=== PATIENT | female | born 1935 | race Caucasian/White ===

== ENCOUNTER 2017-09-16 12:34 | Day surgery (SDC) | payer MEDICARE, BC, SELFPAY ==
[2017-09-16] VITALS (8 sets, daily range): BP systolic 89–148; BP diastolic 49–71; PULSE 57–68; RESP 11–19; TEMP 36–36.4; O2SAT 93–99; BMI 25.1
--- NOTE | 2017-09-16 | PATH_ITS ---
[facility] Accession Number: [id number] . 01 Material submitted: . PART A: GASTRIC POLYP PART B: ESOPHAGEAL . 01 Clinical history: . B: HISTORY OF BARRETTS . 02 Diagnosis: A. Biopsy, Gastric Polyp: Fundic gland polyp, negative for atypia. Negative for evidence of Helicobacter on H/E stain. Negative for intestinal metaplasia. . B. Esophageal Biopsies: Small fragments of squamous mucosa and glandular mucosa, negative for specialized metaplasia of Felipe's-type esophagus. Focal areas of pancreatic acinar metaplasia. Negative for dysplasia and malignancy. Negative for squamous intraepithelial eosinophils. I/09/18/2017 . 02 Electronically signed: . Mike Pierson MD, Pathologist NPI- [id number] . 01 Gross description: . Part A: GASTRIC POLYP: Received in formalin is 1 fragment(s) of whitney, soft tissue measuring 0.2 x 0.1 x 0.1 cm submitted entirely in 1 cassette(s) Part B: ESOPHAGEAL: Received in formalin is 1 fragment(s) of whitney, soft tissue measuring 0.3 x 0.2 x 0.1 cm submitted entirely in 1 cassette(s) /TRC /TRC . 02 Pathologist provided ICD-10: K31.7 . 02 CPT . 127572, [id number] Performed at: 01 [facility] [address] [facility], [place], [place] [id number] MD Colton Goetz MD Phone: [phone] Performed at: 02 [facility] [place] [address] [place], [place] [id number] MD Tristen Eaton MD Phone: [phone]
[2017-09-16] MEDS: SODIUM CHLORIDE 0.9% 1,000 ML 42 ML IV (13:50)
--- NOTE | 2017-09-16 14:08 | SUR.OPER ---
to endo from opd via cart respirations unlabored iv patent positioned per self for procedure
--- NOTE | 2017-09-16 14:34 | SUR.OPER ---
tolerated procedure well
[2017-09-16] MEDS: fentaNYL 250 MCG/5 ML INJ 150 MCG IV (14:36)
[2017-09-16] MEDS: MIDAZOLAM 5 MG/5 ML VIAL 8 MG IV (14:37)
--- NOTE | 2017-09-16 14:37 | P.OP.ENDO_ITS ---
Operative Date/Time/Diagnoses Date of procedure: 09/16/17 Time of procedure: 14:33 Pre-op diagnosis: See indications and findings Post-op diagnosis: same Procedure & Clinicians Study performed: EGD and colonoscopy Same procedure as scheduled: Yes Indications: History of Felipe's esophagus and personal history of adenomatous colon polyps Surgeon: Marty Humphrey Procedure Notes Procedure in detail: After informed consent was obtained the patient was placed in the left lateral decubitus position. The video upper scope was placed into the oropharynx and with the patient. Swelled the esophagus. The esophagus stomach and duodenum were carefully examined. On withdrawal retroflexed view the GE junction was performed. The scope was removed. The patient tolerated the procedure well. Patient was then turned and the colonoscope was substituted. This was introduced in the rectum slowly advanced to the cecum. Preparation was excellent. On slow withdrawal mucosa was carefully examined. The scope was removed and the patient tolerated the procedure well. Blood loss none Complications none Sedation Fentanyl 150 mcg Versed 8 mg IV titration Total sedation time 25 min Findings EGD 1. Possibly 1 small half to 1 cm length tongue of Felipe's esophagus between 37 and 38 cm. It was not clearly above the upper level of the gastric fold. Two biopsies were taken of this area. 2. No hiatal hernia 3. Otherwise normal stomach 4. Normal duodenal bulb and sweep Colonoscopy 1. Rare scattered diverticulosis 2. Otherwise negative colonoscopy to cecum Given Annie stage I do not think she needs follow up for either her Felipe' s or adenomatous colon polyps in the future.
--- NOTE | 2017-09-16 14:51 | PM.HP.1 ---
History of Present Illness Date Patient Seen: 09/16/17 Time Patient Seen: 14:52 Chief complaint: [id number] Narrative: History of Felipe's esophagus and adenomatous colon polyps. No current GI symptoms. Patient History Medical History Barretts esophagus (Acute) GE reflux (Acute) Hypertension (Acute) Polymyalgia rheumatica (Acute) Family & Social History Social History: household members spouse Meds Home Medications Medication Instructions Recorded Confirmed Type ASPIRIN (#ASPIRIN) 325 mg PO QDAY #0 12/20/10 09/16/17 History loratadine [Claritin] 10 mg PO PRN #0 12/20/10 History amlodipine 2.5 mg PO DAILY 09/16/17 09/16/17 History lisinopril 20 mg PO BID 09/16/17 09/16/17 History omeprazole 20 mg PO DAILY 09/16/17 09/16/17 History Allergies Allergy/AdvReac Type Severity Reaction Status Date / Time adhesive tape [ADHESIVE TAPE] Allergy Severe Rash Verified 09/16/17 13:29 codeine [CODEINE] Allergy Severe respiratory Verified 09/16/17 13:29 failure diazepam [DIAZEPAM] Allergy Severe respiratory Verified 09/16/17 13:29 problems procaine [PROCAINE] Allergy Severe SEVERE Verified 09/16/17 13:29 FACIAL SWELLING Exam Vital Signs (past 8 hours): - 09/16/17 13:30 09/16/17 14:36 09/16/17 14:41 Temperature 97.6 F 96.8 F L Pulse Rate 63 65 65 Respiratory Rate 16 19 16 Blood Pressure 148/61 H 95/54 L 89/49 L Pulse Oximetry 98 93 93 Oxygen Delivery Method Room Air Narrative Exam Narrative: Oropharynx free of lesions Chest clear to auscultation percussion Cardiac exam reveals no S3 or murmur Assessment & Plan Plan: Assessment/Plan Narrative: History of Felipe's esophagus and adenomatous colon polyps need for follow-up colonoscopy and upper endoscopy.
--- NOTE | 2017-09-16 15:15 | SUR.PHASEII ---
PT TRANSFERED TO [facility] IN STABLE CONDITION, VSS. PT SITTING UP AND TALKING TO RN. PT BROUGHT TO BEDSIDE. REVIEWED DC INSTRUCTIONS WITH PT AND PT . NO FURTHER QUESTIONS OR CONCERNS VOICED. PT REQUESTING TO STAY A LITTLE LONGER. PT GIVEN COFFEE AND SIPPING ON THAT AT THIS TIME. BED IN LOWEST POSITION AND CALL LIGHT GIVEN TO PT. PT APPEARS COMFORTABLE AT THIS TIME. ABD SOFT AND +FLATUS.
== END 2017-09-16 15:31 | disposition home or self-care (01) ==
PROVIDERS: PCP Internal Medicine; Visit Provider Internal Medicine Gastroenterology
PROC: 0DJ08ZZ Inspection of Upper Intestinal Tract, Via Natural or Artificial Opening Endoscopic (ICD-10-PCS; CPT 43235; principal; 2017-09-16 13:30)
PROC: 0DJD8ZZ Inspection of Lower Intestinal Tract, Via Natural or Artificial Opening Endoscopic (ICD-10-PCS; CPT 45378; 2017-09-16 13:30)
DX: Z86.010 Personal history of colon polyps (principal); K22.70 Barrett's esophagus without dysplasia; K57.30 Diverticulosis of large intestine without perforation or abscess without bleeding; I10 Essential (primary) hypertension; K21.9 Gastro-esophageal reflux disease without esophagitis; M35.3 Polymyalgia rheumatica; K31.7 Polyp of stomach and duodenum
CPT/HCPCS: 43239; G0105; 88305; J2250; J3010

== ENCOUNTER → 2018-06-14 12:46 | Outpatient (CLI) | payer MEDICARE, BC, SELFPAY | PROVIDERS: PCP Internal Medicine; Visit Provider Internal Medicine | DX: Z78.0 Asymptomatic menopausal state (principal); M35.3 Polymyalgia rheumatica; Z90.722 Acquired absence of ovaries, bilateral; Z87.891 Personal history of nicotine dependence | CPT/HCPCS: 77080 ==

== ENCOUNTER → 2018-07-09 12:38 | Outpatient (CLI) | payer MEDICARE, BC, SELFPAY ==
--- NOTE | 2018-07-09 | DI.MRI.S_ITS ---
PROCEDURE: MR HAND RT WO/W CON INDICATIONS: PRIMARY OSTEOARTHRITIS OF HAND TECHNIQUE: Coronal and axial T1 spin echo and T2 fast spin echo with fat saturation. Post-contrast coronal and axial T1 spin echo with fat saturation images through the right hand and wrist. COMPARISON: [facility], CR, XR HAND 3+ VIEWS BILATERAL, 06/08/2018, 10:23. [facility], MR, MR HAND LT WO/W CON, 07/09/2018, 12:49. FINDINGS: Image quality: Degraded by motion artifact. Additionally, the distal ulna and radius are not entirely included on several pulse sequences. Bones and cartilage: Scattered degenerative spurring and sclerosis. No fracture line identified. No marrow signal changes to suggest erosions. Subchondral marrow signal change and possible enhancement measuring 5 mm in head of first metatarsal probably degenerative cyst, and would be unusual appearance for erosion. Synovium: No evidence of active synovitis Soft tissues: No joint effusion seen. There is minimal middle finger flexor tenosynovitis. IMPRESSION: Minimal middle finger flexor tenosynovitis. No definite marrow signal changes to suggest erosions. No evidence of active synovitis Dictated by: Kobe Wallace M.D. on 07/09/2018 at 14:52 Approved by: Kobe Wallace M.D. on 07/09/2018 at 15:00
--- NOTE | 2018-07-09 | DI.MRI.S_ITS ---
PROCEDURE: MR HAND LT WO/W CON INDICATIONS: PRIMARY OSTEOARTHRITIS OF HAND TECHNIQUE: Coronal and axial T1 spin echo and T2 fast spin echo with fat saturation. Post-contrast coronal and axial T1 spin echo with fat saturation images through the left hand and wrist. COMPARISON: [facility], MR, MR HAND RT WO/W CON, 07/09/2018, 12:49. FINDINGS: Image quality: Degraded by motion artifact Bones and cartilage: Scattered degenerative spurring. No fractures identified. No marrow signal changes to suggest erosions are seen. There is T2 hyperintense presumed degenerative cyst seen in the head of the first metacarpal image 12 series 3. There is probable T1 intrinsic hyperintensity rather than actual enhancement. Of note, the ulnar styloid and distal radius are not included in the exam [id number] on some of the pulse sequences, in particular the coronal postcontrast, T1 and T2 weighted pulse sequence. Synovium: No evidence of active synovitis. Soft tissues: Mild middle and ring finger flexor tenosynovitis. No pathologic joint effusion. IMPRESSION: Mild middle and ring finger tenosynovitis. No discrete erosions identified. No evidence of active synovitis. Dictated by: Kobe Wallace M.D. on 07/09/2018 at 14:38 Approved by: Kobe Wallace M.D. on 07/09/2018 at 14:49
== END ==
PROVIDERS: PCP Internal Medicine; Visit Provider Internal Medicine Rheumatology
DX: M19.041 Primary osteoarthritis, right hand (principal); M19.042 Primary osteoarthritis, left hand; M65.842 Other synovitis and tenosynovitis, left hand
CPT/HCPCS: 73220; A9579

== ENCOUNTER 2019-06-26 13:42 | Emergency (ER) | payer MEDICARE, BC, SELFPAY ==
[2019-06-26 14:32] VITALS: BP 186/77; PULSE 78; RESP 18; TEMP 36.2; O2SAT 98
[2019-06-26] MEDS: PANTOPRAZOLE 40 MG VIAL IV (14:43)
[2019-06-26] MEDS: ONDANSETRON 4 MG/2 ML INJ IV ×2 (14:43→17:15)
[2019-06-26] MEDS: SODIUM CHLORIDE 0.9% 1,000 ML 150 ML IV (14:43)
[2019-06-26 14:44] LABS: Add Manual Diff / Slide Review NO; Basophils Absolute Auto 100 /uL (0-100); Basophils Percent Auto 0.5 % (0-2); Eosinophils Absolute Auto 100 /uL (0-450); Eosinophils Percent Auto 0.7 % (2-4); Hematocrit 35.8 % (36-46); Hemoglobin 12.4 g/dL (12.0-16.0); Lymphocytes Absolute Auto 1400 /uL (1100-4500); Lymphocytes Percent Auto 12.9 % (25-40); Mean Corpuscular HGB Conc 34.7 % (30-36); Mean Corpuscular Hemoglobin 33.8 PG (26-34); Mean Corpuscular Volume 97.3 fL (80-100); Monocytes Absolute Auto 400 /uL (0-900); Monocytes Percent Auto 3.8 % (3-14); Neutrophils Absolute Auto 9000 /uL (1500-7000); Neutrophils Percent Auto 82.1 % (50-75); Platelet Count 234 X10^3/uL (150-400); Red Blood Cell Count 3.68 X10^6/uL (4.0-5.2); Red Cell Distribution Width 12.2 % (11.6-14.8)
[2019-06-26 14:49] LABS: Alanine Aminotransferase 15 IU/L (<35); Albumin 4.3 g/dL (3.5-5.0); Albumin Globulin Ratio 1.3 (1.0-2.8); Alkaline Phosphatase 42 U/L (38-126); Aspartate Aminotransferase 30 IU/L (14-36); BUN Creatinine Ratio 28.4 (6-22); Bilirubin Total 0.4 mg/dL (0.2-1.3); Blood Urea Nitrogen 25 mg/dL (7-17); Calcium 9.1 mg/dL (8.4-10.2); Carbon Dioxide 23 mmol/L (22-32); Chloride 102 mmol/L (98-107); Estimated Glomerular Filt Rate > 60.0 mL/min (>60); Globulin 3.3 g/dL (1.7-4.1); Glucose 96 mg/dL (80-110); HEMOLYSIS 27 (0-50); Lipase 88 U/L (23-300); Sodium 136 mmol/L (137-145); Total Protein 7.6 g/dL (6.3-8.2)
--- NOTE | 2019-06-26 15:03 | ED.ABDPAIN ---
HPI - Abdominal Pain <Greg KHAI Arita - Last Filed: 06/26/19 20:01> General Chief Complaint: Abdominal Pain Stated Complaint: Bad reaction to medication Time Seen by Provider: 06/26/19 14:26 Source: patient Mode of arrival: Wheelchair Limitations: no limitations History of Present Illness HPI narrative: This is a 83-year-old female, nonsmoker, who presents to ED with significant other with chief complain of nausea, vomiting, abdominal discomfort since this morning. Patient reports she is currently taking Flagyl and amoxicillin for dental disease and is waiting to have a root canal done tomorrow by Dr. Granados. Patient was unaware of possible interaction with Flagyl and alcohol and she had wine tasting last night. Patient reports intermittent pain that is located below rib cage and radiating to her back. Patient reports it feels just like when she had cholecystitis. Patient has been nauseated and difficulty tolerating fluids. Patient denies urinary symptoms. Patient reports weakness but denies fever, chills. Patient reports history of cholecystectomy, appendectomy, hysterectomy, bladder suspension and hypertension. Related Data Home Medications Medication Instructions Recorded Confirmed loratadine [Claritin] 10 mg PO PRN #0 12/20/10 06/27/19 amlodipine 5 mg PO DAILY 09/16/17 06/28/19 omeprazole 20 mg PO DAILY 09/16/17 06/27/19 acyclovir 800 mg PO DAILY 06/27/19 06/27/19 amoxicillin 500 mg PO BEDTIME 06/27/19 06/27/19 estradiol 1 mg PO DAILY 06/27/19 06/27/19 lisinopril-hydrochlorothiazide 1 tab PO DAILY 06/27/19 06/27/19 metronidazole 500 mg PO BID 06/27/19 06/27/19 rosuvastatin 10 mg PO BEDTIME 06/27/19 06/28/19 aspirin 81 mg PO DAILY 06/28/19 06/28/19 lutein-zeaxanthin 1 cap PO DAILY 06/28/19 06/28/19 ranitidine HCl 150 mg PO DAILY 06/28/19 06/28/19 Previous Rx's Medication Instructions Recorded ondansetron 4 mg PO Q6-8H PRN #10 tab 06/26/19 Allergies Allergy/AdvReac Type Severity Reaction Status Date / Time adhesive tape [ADHESIVE TAPE] Allergy Severe Rash Verified 06/27/19 09:27 codeine [CODEINE] Allergy Severe respiratory Verified 06/27/19 09:27 failure diazepam [DIAZEPAM] Allergy Severe respiratory Verified 06/27/19 09:27 problems procaine [PROCAINE] Allergy Severe SEVERE Verified 06/27/19 09:27 FACIAL SWELLING Review of Systems <KHAI Saini - Last Filed: 06/26/19 20:01> Review of Systems Narrative: General: Denies fever, chills, (+) fatigue, malaise, sweats. HEENT: Denies sinus pain, ear pain, sore throat, difficulty swallowing, dizziness. Respiratory: Denies dyspnea, cough, wheezing, hemoptysis, sputum. Cardiovascular: Denies chest pain, palpitations, orthopnea, edema. Gastrointestinal: See HPI : Denies dysuria, frequency, incontinence, hematuria, urinary retention. Musculoskeletal: Denies weakness, joint pain or bony pain. Skin: Denies rash, skin lesions, or other. Neurologic: Denies weakness, headache, numbness, change in speech, confusion, seizures, incoordination. Psychiatric: No concerning psychosocial issues. 12-point review of systems is negative except for those stated above. Patient History <KHAI Saini - Last Filed: 06/26/19 20:01> Medical History Barretts esophagus (Acute) GE reflux (Acute) Hypertension (Acute) Polymyalgia rheumatica (Acute) Surgical History H/O: hysterectomy (Acute) History of bladder suspension procedure (Acute) Hx of cholecystectomy (Acute) S/P appendectomy (Acute) Social History household members: spouse Smoking Status: Never smoker Smoking Status: Never smoker alcohol intake frequency: 0-2 drinks per day Substance Use Type: does not use Exam <KHAI Saiin - Last Filed: 06/26/19 20:01> Narrative Exam Narrative: GEN: Alert, oriented x 3, ill appearing and appears to be in discomfort. Well nourished. Head: Normal cephalic, atraumatic. No scalp or temporal tenderness, palpable mass or rash. EYES: Pupils are equal, round, and reactive to light and accommodation. Extraocular muscles are intact bilaterally. There is no subconjunctival hemorrhage, exudate and sclera non-icteric. ENT: Hearing grossly intact. Nose without bleeding, purulent discharge. Mucous membrane moist, no mucosal lesion. Throat without erythema, tonsillar hypertrophy or exudate. Uvula in midline, airway patent. Neck: Trachea in midline. No JVD, non-tender without lymphadenopathy. No masses or thyroid megaly. Supple, non-tender and no meningeal signs. CARDIAC: Normal regular rate and rhythm without murmurs, gallops, or rubs. No chest wall tenderness. No peripheral edema, cyanosis or pallor. Capillary refill is less than 2 seconds. RESPIRATORY: Lungs are clear to auscultate bilaterally. No cough, wheezes, rales, or rhonchi. No stridor, respiratory distress, increase work of breathing, or accessary muscle used. ABD: Abdomen soft and non-distended. Tender to palpate in epigastric region. No guarding or rebound tenderness to palpate. Bowel sounds are normal in all 4 quadrants. There is no palpable masses or organomegaly. EXT: Full painless ROM of all extremities with no loss of sensation, strength, effusion or edema. SKIN: Warm, dry, normal color for patient. No erythema, lesions or rash over visible areas. BACK: Nontender without deformity or crepitance. No flank tenderness. NEUROLOGICAL: Alert and oriented to place, time and person. Sensation and motor function intact bilaterally. No facial droops, dysphasia. PSYCHIATRIC: Good judgement and reason, without hallucinations, abnormal affect or abnormal behaviors during the examination. Initial Vital Signs Initial Vital Signs: Vital Signs Temperature 97.1 F L 06/26/19 14:32 Pulse Rate 78 06/26/19 14:32 Respiratory Rate 18 06/26/19 14:32 Blood Pressure 186/77 H 06/26/19 14:32 Pulse Oximetry 98 06/26/19 14:32 <Lamont Mckeon MD - Last Filed: 06/29/19 07:50> Initial Vital Signs Initial Vital Signs: Vital Signs Temperature 97.1 F L 06/26/19 14:32 Pulse Rate 78 06/26/19 14:32 Respiratory Rate 18 06/26/19 14:32 Blood Pressure 186/77 H 06/26/19 14:32 Pulse Oximetry 98 06/26/19 14:32 Scores <Greg BatresKHAI Beltre - Last Filed: 06/26/19 20:01> GCS [place] coma scale eye opening: Spontaneous Marisa coma scale verbal response: Orientated [place] coma scale motor response: Obey commands [place] coma scale total score: 15 Course <Greg KHAI Arita - Last Filed: 06/26/19 20:01> Orders Ordered: Discontinued Medications Sodium Chloride (Normal Saline 0.9%) 1,000 mls @ 150 mls/hr IV CONT VERONICA Last Infusion: 06/26/19 18:26 Dose: 0 mls/hr Documented by: Admin: 06/26/19 14:43 Dose: 150 mls/hr Documented by: OPAL Ketorolac Tromethamine (Toradol) 15 mg IV NOW ONE Stop: 06/26/19 16:03 Last Admin: 06/26/19 16:17 Dose: 15 mg Documented by: EJ Ondansetron HCl (Zofran) 4 mg IV NOW ONE Stop: 06/26/19 14:38 Last Admin: 06/26/19 14:43 Dose: 4 mg Documented by: OPAL Ondansetron HCl (Zofran) 4 mg IV NOW ONE Stop: 06/26/19 16:48 Last Admin: 06/26/19 17:15 Dose: 4 mg Documented by: EJ Ondansetron HCl (Zofran Odt Prepack) 1 bottle MISC SEEINSTR ONE Stop: 06/26/19 18:33 Last Admin: 06/26/19 18:41 Dose: 1 bottle Documented by: EJ Pantoprazole Sodium (Protonix) 40 mg IV NOW ONE Stop: 06/26/19 14:40 Last Admin: 06/26/19 14:43 Dose: 40 mg Documented by: OPAL Vital Signs Vital signs: Vital Signs - 8 hr 06/26/19 14:32 06/26/19 17:00 Temperature 97.1 F L Pulse Rate 78 77 Respiratory Rate 18 18 Blood Pressure [Left Arm] 186/77 H 145/97 H Pulse Oximetry 98 98 <Lamont Mckeon MD - Last Filed: 06/29/19 07:50> Orders Ordered: Discontinued Medications Sodium Chloride (Normal Saline 0.9%) 1,000 mls @ 150 mls/hr IV CONT VERONICA Last Infusion: 06/26/19 18:26 Dose: 0 mls/hr Documented by: Admin: 06/26/19 14:43 Dose: 150 mls/hr Documented by: OPAL Ketorolac Tromethamine (Toradol) 15 mg IV NOW ONE Stop: 06/26/19 16:03 Last Admin: 06/26/19 16:17 Dose: 15 mg Documented by: EJ Ondansetron HCl (Zofran) 4 mg IV NOW ONE Stop: 06/26/19 14:38 Last Admin: 06/26/19 14:43 Dose: 4 mg Documented by: OPAL Ondansetron HCl (Zofran) 4 mg IV NOW ONE Stop: 06/26/19 16:48 Last Admin: 06/26/19 17:15 Dose: 4 mg Documented by: EJ Ondansetron HCl (Zofran Odt Prepack) 1 bottle MISC SEEINSTR ONE Stop: 06/26/19 18:33 Last Admin: 06/26/19 18:41 Dose: 1 bottle Documented by: EJ Pantoprazole Sodium (Protonix) 40 mg IV NOW ONE Stop: 06/26/19 14:40 Last Admin: 06/26/19 14:43 Dose: 40 mg Documented by: OPAL Vital Signs Vital signs: Vital Signs - 8 hr 06/26/19 14:32 06/26/19 17:00 Temperature 97.1 F L Pulse Rate 78 77 Respiratory Rate 18 18 Blood Pressure [Left Arm] 186/77 H 145/97 H Pulse Oximetry 98 98 MDM - Abdominal Pain <Greg KHAI Arita - Last Filed: 06/26/19 20:01> Differential Diagnosis Differential diagnosis: Likely abdominal pain, pancreatitis, small bowel obstruction and other (Gastritis, adverse drug reaction,) Medical Records Attestation: I reviewed the patient's medical records. Lab Data Attestation: I reviewed the patient's lab results. Result diagrams: 06/26/19 14:30 06/26/19 14:30 Labs: Lab Results 06/26/19 06/26/19 Range/Units 14:30 14:30 WBC 11.0 (4.5-11.0) X10^3/uL RBC 3.68 L (4.0-5.2) X10^6/uL Hgb 12.4 (12.0-16.0) g/dL Hct 35.8 L (36-46) % MCV 97.3 (80-100) fL MCH 33.8 (26-34) PG MCHC 34.7 (30-36) % RDW 12.2 (11.6-14.8) % Plt Count 234 (150-400) X10^3/uL Neut % (Auto) 82.1 H (50-75) % Lymph % (Auto) 12.9 L (25-40) % [place] % (Auto) 3.8 (3-14) % Eos % (Auto) 0.7 L (2-4) % Baso % (Auto) 0.5 (0-2) % Neut # (Auto) 9000 H (9657-9158) /uL Lymph # (Auto) 1400 (9900-8446) /uL [place] # (Auto) 400 (0-900) /uL Eos # (Auto) 100 (0-450) /uL Baso # (Auto) 100 (0-100) /uL Sodium 136 L (137-145) mmol/L Potassium 4.0 (3.4-5.1) mmol/L Chloride 102 (98-107) mmol/L Carbon Dioxide 23 (22-32) mmol/L BUN 25 H (7-17) mg/dL Creatinine 0.88 (0.52-1.04) mg/dL Estimated GFR > 60.0 (>60) mL/min BUN/Creatinine Ratio 28.4 H (6-22) Glucose 96 (80-110) mg/dL Calcium 9.1 (8.4-10.2) mg/dL Total Bilirubin 0.4 (0.2-1.3) mg/dL AST 30 (14-36) IU/L ALT 15 (<35) IU/L Alkaline Phosphatase 42 (38-126) U/L Total Protein 7.6 (6.3-8.2) g/dL Albumin 4.3 (3.5-5.0) g/dL Globulin 3.3 (1.7-4.1) g/dL Albumin/Globulin Ratio 1.3 (1.0-2.8) Lipase 88 (23-300) U/L Point of care testing: Urine Dip Bedside Urine Glucose Negative Bedside Urine Bilirubin - Negative Bedside Urine Ketone +/- 5 Urine Specific [place] 1.015 Bedside Urine Occult Blood - Negative Bedside Urine pH 7.5 Bedside Urine Protein - Negative Bedside Urine Urobilinogen - Negative Bedside Urine Nitrite - Negative Bedside Urine Leukocytes - Negative Esterase Imaging Data XR-AAS: Radiologist's Impression: [address] [address] XRay Report Signed Patient: Annie Ryan [facility]#: [id number] : 8Acct:[id number] Age/Sex: 83 / FDate of Service: 06/26/19 Loc: ED Accession Number: [id number] Procedure: XR acute abdomen series Ordering Provider: Greg Arita PROCEDURE: XR ACUTE ABDOMEN SERIES INDICATIONS: abdominal pain/nausea, hx of multiple abd surgery, r/o SBO TECHNIQUE: One view chest and two views of the abdomen were acquired. COMPARISON: [facility], CT, ABDOMEN/PELVIS WITH CONTRAST, 11/26/2016, 12:04. FINDINGS: Surgical changes and devices: Cholecystectomy clips are seen. Chest: Lungs are clear. The cardiac contours are within normal limits. The aorta demonstrates calcification and tortuosity.No pleural effusions. No pneumoperitoneum. Abdomen: Bowel gas pattern is normal. No suspicious calcifications. Visualized solid organ contours appear normal. Bones: No suspicious bony lesions. S-shaped scoliotic curvature is seen. Age-appropriate bony degenerative changes are seen. IMPRESSION: A nonobstructive bowel gas pattern is seen. As clinically appropriate, please consider a repeat plain film study or a dedicated CT of the abdomen and pelvis, if the patient's symptoms persist or worsen. Dictated by: Royer Amaya M.D. on 06/26/2019 at 15:19 Approved by: Royer Amaya M.D. on 06/26/2019 at 15:21 US-Renal: Radiologist's Impression: MDM Narrative Medical decision making narrative: This is a 83-year-old female who presents to ED with abdominal pain, nausea and vomiting after she had taken wine while she is on Flagyl for dental problem. Patient was not aware of interaction with Flagyl and alcohol at that time. Patient's pain is in upper mid abdomen radiating to back since early this morning. Patient has history of appendectomy, cholecystectomy, hysterectomy, bladder suspension surgery. There is no leukocytosis but mildly elevated neutrophils. Chemistry tests were unremarkable but appears to be patient was mildly dehydrated with elevated BUN of 25 and BUN/creatinine ratio of 28.4. Patient was medicated with IV fluids and Zofran. Given patient has a history of multiple abdominal surgery and to rule out small-bowel obstruction, acute abdominal series was obtained and indicates non obstructive bowel gas pattern with normal lungs. When patient was reassessed, patient reports on improved nausea and right flank pain and had bile looking emesis. Ultrasound of renal test was obtained to rule out hydronephrosis or kidney stone which was negative. After patient received 2nd dose of Zofran and IV Toradol, patient reports her discomfort and nausea has much improved. Advised patient to restart Flagyl tomorrow and avoid taking alcohol when she is on Flagyl in addition of 48 hours after she completes Flagyl. Patient is scheduled to have dental procedure, root canal, tomorrow by Dr. Granados and advised to contact her dentist in the morning see how she feels and seek her recommendation. Return precautions were discussed with patient and patient discharged to home with prepack Zofran and advised to hydrate adequately. Patient verbalized understanding and agreement with the treatment plan. <Lamont Mckeon MD - Last Filed: 06/29/19 07:50> Lab Data Labs: Lab Results 06/26/19 06/26/19 Range/Units 14:30 14:30 WBC 11.0 (4.5-11.0) X10^3/uL RBC 3.68 L (4.0-5.2) X10^6/uL Hgb 12.4 (12.0-16.0) g/dL Hct 35.8 L (36-46) % MCV 97.3 (80-100) fL MCH 33.8 (26-34) PG MCHC 34.7 (30-36) % RDW 12.2 (11.6-14.8) % Plt Count 234 (150-400) X10^3/uL Neut % (Auto) 82.1 H (50-75) % Lymph % (Auto) 12.9 L (25-40) % [place] % (Auto) 3.8 (3-14) % Eos % (Auto) 0.7 L (2-4) % Baso % (Auto) 0.5 (0-2) % Neut # (Auto) 9000 H (7404-3845) /uL Lymph # (Auto) 1400 (7055-9235) /uL [place] # (Auto) 400 (0-900) /uL Eos # (Auto) 100 (0-450) /uL Baso # (Auto) 100 (0-100) /uL Sodium 136 L (137-145) mmol/L Potassium 4.0 (3.4-5.1) mmol/L Chloride 102 (98-107) mmol/L Carbon Dioxide 23 (22-32) mmol/L BUN 25 H (7-17) mg/dL Creatinine 0.88 (0.52-1.04) mg/dL Estimated GFR > 60.0 (>60) mL/min BUN/Creatinine Ratio 28.4 H (6-22) Glucose 96 (80-110) mg/dL Calcium 9.1 (8.4-10.2) mg/dL Total Bilirubin 0.4 (0.2-1.3) mg/dL AST 30 (14-36) IU/L ALT 15 (<35) IU/L Alkaline Phosphatase 42 (38-126) U/L Total Protein 7.6 (6.3-8.2) g/dL Albumin 4.3 (3.5-5.0) g/dL Globulin 3.3 (1.7-4.1) g/dL Albumin/Globulin Ratio 1.3 (1.0-2.8) Lipase 88 (23-300) U/L Point of care testing: Urine Dip Bedside Urine Glucose Negative Bedside Urine Bilirubin - Negative Bedside Urine Ketone +/- 5 Urine Specific [place] 1.015 Bedside Urine Occult Blood - Negative Bedside Urine pH 7.5 Bedside Urine Protein - Negative Bedside Urine Urobilinogen - Negative Bedside Urine Nitrite - Negative Bedside Urine Leukocytes - Negative Esterase Discharge Plan Departure Patient Disposition: Home Clinical Impression: Adverse drug reaction Qualifiers: Encounter type: initial encounter Qualified Code(s): T50.905A - Adverse effect of unspecified drugs, medicaments and biological substances, initial encounter Abdominal pain Qualifiers: Abdominal location: unspecified location Qualified Code(s): R10.9 - Unspecified abdominal pain Vomiting Qualifiers: Vomiting type: bilious vomiting Nausea presence: with nausea Qualified Code(s): R11.14 - Bilious vomiting Discharge Date/Time: 06/26/19 18:50 Instructions: DI for Abdominal Pain-Adult, DI for Vomiting -- Adult Activity Restrictions/Additional Instructions: You have been diagnosed with [adverse reaction to Flagyl with alcohol consumption. You were medicated with IV fluids, Zofran, Toradol and pantoprazole. Lab tests were unremarkable except mild dehydration.Does not show kidney stones, mass, hydronephrosis.]. What to do: *Take your medications as directed. Please take Zofran that has been provided to you as needed for nausea. Please hydrate adequately with small amount of fluids frequently. Zofran has been transmitted to [facility] if you need additional doses. *Follow up with your primary care provider in 2-3 days, call for an appointment. Please call your dentist tomorrow morning see how you feel for root canal procedure. Let them know you were seen in the ED and that we asked you to be seen in follow up. *Return to ED if you have any new, worsening, or concerning symptoms, such as [chest pain, breathing difficulty, unable to tolerate fluids, fever, worsening pain, or any acute concerns]. Prescriptions: New ondansetron 4 mg tablet,disintegrating 4 mg PO Q6-8H PRN (Reason: nausea and vomiting) Qty: 10 RF: 0 No Action loratadine [Claritin] 10 MG tablet 10 mg PO PRN Qty: 0 RF: 0 lisinopril-hydrochlorothiazide 20-12.5 mg Tablet 1 tab PO DAILY RF: 0 metronidazole 500 mg Tablet 500 mg PO BID RF: 0 amoxicillin 500 mg Tablet 500 mg PO BEDTIME RF: 0 acyclovir 800 mg Tablet 800 mg PO DAILY RF: 0 estradiol 1 mg Tablet 1 mg PO DAILY RF: 0 rosuvastatin 20 mg Tablet 10 mg PO BEDTIME RF: 0 aspirin 81 mg Tablet,Delayed Release (Dr/Ec) 81 mg PO DAILY RF: 0 ranitidine HCl 150 mg Capsule 150 mg PO DAILY RF: 0 lutein-zeaxanthin 25-5 mg Capsule 1 cap PO DAILY RF: 0 amlodipine 2.5 mg Tablet 5 mg PO DAILY RF: 0 omeprazole 20 mg Capsule,Delayed Release(Dr/Ec) 20 mg PO DAILY RF: 0 Referrals: Will Tadeo MD [Primary Care Provider] -
[2019-06-26] MEDS: KETOROLAC 60 MG/2 ML VIAL 15 MG IV (16:17)
[2019-06-26 17:00] VITALS: BP 145/97; PULSE 77; RESP 18; O2SAT 98
--- NOTE | 2019-06-26 17:20 | DI.US.S_ITS ---
PROCEDURE: US RENAL COMPLETE INDICATIONS: flank and abdominal pain, vomiting TECHNIQUE: Real-time scanning was performed of the kidneys and bladder, with image documentation. COMPARISON: [facility], CT, ABDOMEN/PELVIS WITH CONTRAST, 11/26/2016, 12:04. [facility], CR, XR ACUTE ABDOMEN SERIES, 06/26/2019, 15:42. [facility], US, RENAL COMPLETE, 06/18/2012, 13:53. FINDINGS: Kidneys: Kidneys are normal in size. Right kidney measures 10.6 cm long; left kidney measures 9.6 cm long. Right renal cortical thickness is 1.3 cm; left renal cortical thickness is 2.1 cm. Renal cortical echotexture is normal. No hydronephrosis or nephrolithiasis. No suspicious solid mass lesions. Bladder: The urinary bladder is not distended, which limits its evaluation. Miscellaneous: No free pelvic fluid. IMPRESSION: Normal-appearing kidneys, without hydronephrosis. Limited evaluation of the bladder. Dictated by: Royer Amaya M.D. on 06/26/2019 at 16:51 Approved by: Royer Amaya M.D. on 06/26/2019 at 16:53
[2019-06-26] MEDS: ONDANSETRON 4 MG ODT PREPACK 1 BOTTLE MISC (18:41)
== END 2019-06-26 18:50 | disposition home or self-care (01) ==
PROVIDERS: Emergency Provider Nurse Practitioner Family; PCP Internal Medicine
DX: R11.14 Bilious vomiting (principal); T50.905A Adverse effect of unspecified drugs, medicaments and biological substances, initial encounter; R10.9 Unspecified abdominal pain
CPT/HCPCS: 74022; 76770; 80053; 81003; 83690; 85025; 96361; 96374; 96375; 96376; 99284; C9113; J1885; J2405

== ENCOUNTER 2019-06-27 09:18 | Inpatient (IN) | payer MEDICARE, BC, SELFPAY ==
[2019-06-27] VITALS (25 sets, daily range): BP systolic 129–196; BP diastolic 56–100; PULSE 72–99; RESP 11–27; TEMP 36.4–37.2; O2SAT 94–100; BMI 24.8
--- NOTE | 2019-06-27 | PATH_ITS ---
[facility] Accession Number: [id number] . 01 Material submitted: . small bowel - SMALL BOWEL RESECTION . 01 Clinical history: . VOMITING/ABDOMINAL PAIN . 02 Diagnosis: Small Bowel, Resection: 1. Active enteritis with thickened wall, transmural congestion, and edema, consistent with early ischemic changes. 2. Serositis and adhesions are present. 3. Margins appear viable. 4. No evidence of neoplasm. . . [facility] 06/30/2019 1324 Local . 02 Electronically signed: . Luna Cuevas MD, Pathologist NPI- [id number] . 01 Gross description: . Received in formalin, labeled small bowel section, is an unoriented segment of small bowel (length-50.5 cm, resection margin #1 diameter-1.9 cm, resection margin #2 diameter-1.7 cm) with attached mesentery (up to 4.5 cm thick). The resection margins are received stapled. The entire segment is red-brown and congested. The mucosa has normal folds. No nodules, masses or lesions are identified. The resection margin is inked blue. Section code: (A1) resection margin #1, chemical sales representative longitudinal sections; (A2) resection margin #2, chemical sales representative longitudinal sections; (A3-A10) chemical sales representative serial sections submitted from resection margin #1 to #2. ([id number]) /MRV 06/29/2019 1407 Local . 02 Pathologist provided ICD-10: K55.9 . 02 CPT . 396276 Performed at: [address] [facility], [place], [place] [id number] MD Colton Goetz MD Phone: [phone] Performed at: 02 [facility] [address] [place] [id number] MD Luna Cuevas MD Phone: [phone]
[2019-06-27] MEDS: ONDANSETRON 4 MG/2 ML INJ IV ×2 (09:46→15:41)
[2019-06-27] MEDS: SODIUM CHLORIDE 0.9% 1,000 ML 1000 ML IV (09:46)
[2019-06-27] MEDS: LORazepam 2 MG/ML INJ 1 MG IV (09:48)
[2019-06-27 09:59] LABS: Add Manual Diff / Slide Review NO; Basophils Absolute Auto 100 /uL (0-100); Basophils Percent Auto 0.8 % (0-2); Eosinophils Absolute Auto 0 /uL (0-450); Eosinophils Percent Auto 0.1 % (2-4); Hematocrit 40.5 % (36-46); Hemoglobin 13.8 g/dL (12.0-16.0); Lymphocytes Absolute Auto 3800 /uL (1100-4500); Lymphocytes Percent Auto 27.4 % (25-40); Mean Corpuscular HGB Conc 34.1 % (30-36); Mean Corpuscular Hemoglobin 33.2 PG (26-34); Mean Corpuscular Volume 97.1 fL (80-100); Monocytes Absolute Auto 900 /uL (0-900); Monocytes Percent Auto 6.8 % (3-14); Neutrophils Absolute Auto 8900 /uL (1500-7000); Neutrophils Percent Auto 64.9 % (50-75); Platelet Count 270 X10^3/uL (150-400); Red Blood Cell Count 4.17 X10^6/uL (4.0-5.2); Red Cell Distribution Width 12.3 % (11.6-14.8); White Blood Cell Count 13.7 X10^3/uL (4.5-11.0)
[2019-06-27 10:01] LABS: INR 0.9 (0.9-1.3); Prothrombin Time 10.5 SECONDS (10.1-12.7)
[2019-06-27 10:04] LABS: PTT Partial Thromboplastin Tim 28 SECONDS (26.4-36.2)
[2019-06-27 10:07] LABS: Alanine Aminotransferase 17 IU/L (<35); Albumin 4.7 g/dL (3.5-5.0); Albumin Globulin Ratio 1.3 (1.0-2.8); Alkaline Phosphatase 47 U/L (38-126); Bilirubin Total 0.9 mg/dL (0.2-1.3); Blood Urea Nitrogen 23 mg/dL (7-17); Calcium 9.3 mg/dL (8.4-10.2); Carbon Dioxide 19 mmol/L (22-32); Chloride 103 mmol/L (98-107); Estimated Glomerular Filt Rate 45.3 mL/min (>60); Globulin 3.5 g/dL (1.7-4.1); Glucose 125 mg/dL (80-110); Lipase 140 U/L (23-300); Sodium 137 mmol/L (137-145); Total Protein 8.2 g/dL (6.3-8.2)
[2019-06-27 10:09] LABS: Aspartate Aminotransferase 39 IU/L (14-36); HEMOLYSIS 61 (0-50); Potassium 3.4 mmol/L (3.4-5.1)
--- NOTE | 2019-06-27 10:11 | PC.NURSE ---
pt states she has been seen multiple times for the same pain and n/v. pt dx with marijuana induced hyperemesis. stopped using marijuana on 06/20. felt pretty good yesterday about 0330 pain started, now severe.
[2019-06-27] MEDS: MORPHINE 4 MG/ML INJ (10:20)
--- NOTE | 2019-06-27 10:30 | ED.NAVMDI ---
HPI - Nausea/Vomiting/Diarrhea General Chief complaint: Nausea/Vomiting/Diarrhea Stated complaint: VOMITING/ABDOMINAL PAIN Time Seen by Provider: 06/27/19 09:22 Source: patient and family Mode of arrival: Wheelchair Limitations: no limitations History of Present Illness HPI Narrative: 83-year-old woman with a history of hypertension and a dental infection who currently is on Flagyl for the dental infection had a partial glass of wine 2 nights ago and presented yesterday with significant vomiting and abdominal pain. Workup yesterday included blood work that was unremarkable a acute abdomen series that was unremarkable with a nonobstructive bowel gas pattern seen. Renal ultrasound was also done with normal appearing kidneys and no hydronephrosis appreciated. She was treated with antiemetics and discharged home. She had a couple of hours of relief and then began having more abdominal pain and returned significant nausea. Vomiting most of the evening. Her last bowel movement was yesterday she notes she is still passing gas. When she presents today she is in severe distress with severe abdominal pain radiating up into the chest. She describes no blood or black coffee-grounds in her emesis and the bowel movement yesterday was soft brown without evidence of bleeding and no recent black stools Related Data Home Medications Medication Instructions Recorded Confirmed ASPIRIN (#ASPIRIN) 325 mg PO QDAY #0 12/20/10 09/16/17 loratadine [Claritin] 10 mg PO PRN #0 12/20/10 amlodipine 2.5 mg PO DAILY 09/16/17 09/16/17 lisinopril 20 mg PO BID 09/16/17 09/16/17 omeprazole 20 mg PO DAILY 09/16/17 09/16/17 Previous Rx's Medication Instructions Recorded ondansetron 4 mg PO Q6-8H PRN #10 tab 06/26/19 Allergies Allergy/AdvReac Type Severity Reaction Status Date / Time adhesive tape [ADHESIVE TAPE] Allergy Severe Rash Verified 06/27/19 09:27 codeine [CODEINE] Allergy Severe respiratory Verified 06/27/19 09:27 failure diazepam [DIAZEPAM] Allergy Severe respiratory Verified 06/27/19 09:27 problems procaine [PROCAINE] Allergy Severe SEVERE Verified 06/27/19 09:27 FACIAL SWELLING Review of Systems Review of Systems Narrative: Pertinent positive and negative findings as per HPI Chills over the last 24 hours Remainder of review of systems is otherwise unremarkable for Constitutional: Fevers,weakness ENT: No sore throat, neck pain, ear pain, dental infection for which she was taking Flagyl Respiratory: Cough, wheeze, dyspnea : Dysuria, hematuria, flank pain MS: Muscle weakness, numbness, joint swelling or warmth Skin: Rashes, nonhealing lesions Neuro: Syncope, dizziness, tingling Psych: Depression, anxiety, suicidal ideation Endocrine: Fatigue, heat or cold intolerance, very dry skin Heme: Easy bruising or bleeding Allergy: Seasonal rhinorrhea, itchy eyes Patient History Medical History Barretts esophagus (Acute) GE reflux (Acute) Hypertension (Acute) Polymyalgia rheumatica (Acute) Surgical History H/O: hysterectomy (Acute) History of bladder suspension procedure (Acute) Hx of cholecystectomy (Acute) S/P appendectomy (Acute) Social History household members: spouse Smoking Status: Never smoker Smoking Status: Never smoker alcohol intake frequency: 0-2 drinks per day Substance Use Type: does not use Exam Narrative Exam Narrative: General: Acute distress secondary to abdominal pain, nausea. Significantly flushed to distracted by pain to give a full history, supplements history HEENT: Moist mucous membranes, normal sclera with reactive pupils, Neck: No JVD, supple Respiratory: Lungs are clear to auscultation, no wheezing no rales no rhonchi. Full and symmetrical air movement Cardiac: Mild tachycardia, regular rhythm, no murmurs no bruits Abdomen: Exquisitely tender all 4 quadrants with rebound and guarding. Skin: Warm and dry, no rashes Neurologic: Grossly neurologically intact with no obvious asymmetries or abnormalities Extremities: No trauma, well perfused 1210 on read exam after fluids and pain medication she is much calmer, respiratory rate at 17 saturations on room air at 99% blood pressure has come down to 170/80. Belly remains significantly tender after 4 mg of morphine, no rebound but continues to have guarding particularly in the lower quadrants. Initial Vital Signs Initial Vital Signs: Vital Signs Temperature 98.8 F 06/27/19 09:23 Pulse Rate 99 H 06/27/19 09:23 Respiratory Rate 27 H 06/27/19 09:23 Blood Pressure 196/97 H 06/27/19 09:23 Pulse Oximetry 97 06/27/19 09:23 Course Orders Ordered: ED Orders 06/27/19 09:28 EKG-12 Lead Stat 06/27/19 09:30 Complete Blood Count AUTO DIFF Stat Comprehensive Metabolic Panel Stat Lipase Stat Partial Thromboplastin Time Stat Prothrombin Time INR Stat 06/27/19 10:34 CT chest abd pel w con Stat 06/27/19 12:05 Lactate (Lactic Acid) Stat 06/27/19 12:06 Complete Blood Count AUTO DIFF Stat Comprehensive Metabolic Panel Stat Sodium Chloride (Normal Saline 0.9%) 1,000 mls @ 150 mls/hr IV BOLUS ONE Stop: 06/27/19 17:43 Last Admin: 06/27/19 11:59 Dose: 150 mls/hr Documented by: MADHAVI Piperacillin/Tazobactam/Dextrose (Zosyn) 3.375 gm in 50 mls @ 100 mls/hr IV NOW ONE Stop: 06/27/19 13:07 Discontinued Medications Sodium Chloride (Normal Saline 0.9%) 1,000 mls @ 1,000 mls/hr IV BOLUS ONE Stop: 06/27/19 10:42 Last Infusion: 06/27/19 11:05 Dose: 0 mls/hr Documented by: Admin: 06/27/19 09:46 Dose: 1,000 mls/hr Documented by: OBI Lorazepam (Ativan) 1 mg IV NOW ONE Stop: 06/27/19 09:44 Last Admin: 06/27/19 09:48 Dose: 1 mg Documented by: OBI Ondansetron HCl (Zofran) 4 mg IV NOW ONE Stop: 06/27/19 09:29 Last Admin: 06/27/19 09:46 Dose: 4 mg Documented by: OBI Ondansetron HCl (Zofran) 4 mg IV NOW ONE Stop: 06/27/19 09:44 Last Admin: 06/27/19 10:54 Dose: Not Given Documented by: MADHAVI Vital Signs Vital signs: Vital Signs - 8 hr 06/27/19 09:23 06/27/19 10:00 06/27/19 10:30 Temperature 98.8 F Pulse Rate 99 H 86 72 Respiratory Rate 27 H 24 14 Blood Pressure [Left Arm] 196/97 H 189/100 H 187/89 H Pulse Oximetry 97 97 99 06/27/19 11:00 Temperature Pulse Rate 85 Respiratory Rate 17 Blood Pressure [Left Arm] 181/85 H Pulse Oximetry 100 MDM - Nausea/Vomiting/Diarrhea Medical Records Attestation: I reviewed the patient's medical records. Lab Data Attestation: I reviewed the patient's lab results. Result diagrams: 06/27/19 09:30 06/27/19 09:30 Labs: Lab Results 06/27/19 06/27/19 06/27/19 Range/Units 09:30 09:30 09:30 WBC 13.7 H (4.5-11.0) X10^3/uL RBC 4.17 (4.0-5.2) X10^6/uL Hgb 13.8 (12.0-16.0) g/dL Hct 40.5 (36-46) % MCV 97.1 (80-100) fL MCH 33.2 (26-34) PG MCHC 34.1 (30-36) % RDW 12.3 (11.6-14.8) % Plt Count 270 (150-400) X10^3/uL Neut % (Auto) 64.9 (50-75) % Lymph % (Auto) 27.4 (25-40) % [place] % (Auto) 6.8 (3-14) % Eos % (Auto) 0.1 L (2-4) % Baso % (Auto) 0.8 (0-2) % Neut # (Auto) 8900 H (7734-6541) /uL Lymph # (Auto) 3800 (8828-3729) /uL [place] # (Auto) 900 (0-900) /uL Eos # (Auto) 0 (0-450) /uL Baso # (Auto) 100 (0-100) /uL PT 10.5 (10.1-12.7) SECONDS INR 0.9 (0.9-1.3) APTT 28 (26.4-36.2) SECONDS Sodium 137 (137-145) mmol/L Potassium 3.4 (3.4-5.1) mmol/L Chloride 103 (98-107) mmol/L Carbon Dioxide 19 L (22-32) mmol/L BUN 23 H (7-17) mg/dL Creatinine 1.15 H (0.52-1.04) mg/dL Estimated GFR 45.3 L (>60) mL/min BUN/Creatinine Ratio 20.0 (6-22) Glucose 125 H (80-110) mg/dL Calcium 9.3 (8.4-10.2) mg/dL Total Bilirubin 0.9 (0.2-1.3) mg/dL AST 39 H (14-36) IU/L ALT 17 (<35) IU/L Alkaline Phosphatase 47 (38-126) U/L Total Protein 8.2 (6.3-8.2) g/dL Albumin 4.7 (3.5-5.0) g/dL Globulin 3.5 (1.7-4.1) g/dL Albumin/Globulin Ratio 1.3 (1.0-2.8) Lipase 140 D (23-300) U/L Imaging Data CT scan - abdomen/pelvis: Radiologist's Impression: IMPRESSION: 1. Segment of thickened, inflamed small bowel in the midline lower abdomen without significant dilatation, pneumatosis, or definite transition point. Findings may represent an acute infectious/inflammatory process although early developing obstruction or ischemic enteritis not completely excluded. There is associated ascites and reactive lymph nodes. Consider surgical consultation. 2. A 1.3 cm right upper lobe and a 1.3 cm right lower lobe groundglass nodule. No focal consolidation. These may represent inflammatory nodules although neoplastic process not excluded. Recommend followup CT in 3-6 months to document stability versus resolution. 3. Interval enlargement of now moderate sized hiatal hernia. No evidence for rupture or pneumomediastinum. 4. Status post cholecystectomy with stable appearance of dilated common bile duct and minimal intrahepatic biliary ductal prominence, favored to represent postcholecystectomy physiologic dilatation. Other chronic findings as above. Findings were discussed with Dr. Lujan at 1140 hrs. Dictated by: Shar Joshi M.D. 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 Yesterday it would presume to be an interaction between metronidazole and wine however pain and vomiting have persisted. CT scan suggests a thickened inflamed small bowel in the middle lower abdomen perhaps infectious inflammatory and the possibility of ischemic is also entertained, also noted associated reactive ascites and lymph nodes.. She is hemodynamically intact. White count is at 13.7. Lactic acid and blood cultures are currently pending. Care is reviewed with Dr. Evangelista. At this point without pneumoperitoneum and pain better controlled she is not an immediate surgical candidate. Will consult and continue to evaluate her clinical course over the course of the next 24 hours. Patient will be admitted to the hospitalist service for acute abdominal pain. 1240. Reviewed with hospitalist, Dr Yun. Will add a single dose of Zosyn and admit observation status Discharge Plan Departure Patient Disposition: Admitted as Observation Clinical Impression: Inflammation of small intestine, Abdominal pain, acute Referrals: Will Tadeo MD [Primary Care Provider] -
--- NOTE | 2019-06-27 10:34 | DI.CT.S_ITS ---
PROCEDURE: CT CHEST ABD PEL W CON INDICATIONS: severe pain chest and abd, severe retching. Borhave? Perf? TECHNIQUE: After the administration of intravenous contrast, 5 mm thick sections acquired from the lung apices to the symphysis. 5 mm coronal and sagittal reformats were performed, with additional 7 mm MIP reformats through the lungs. For radiation dose reduction, the following was used: automated exposure control, adjustment of mA and/or kV according to patient size. COMPARISON: [facility], CT, ABDOMEN/PELVIS WITH CONTRAST, 11/26/2016, 12:04. FINDINGS: Image quality: Excellent. CHEST: Lungs and pleura: There is a 1.2 x 1.3 cm groundglass nodule identified in the periphery of the posterior right upper lobe seen on image 101, series 3. There is a second ill-defined groundglass nodule measuring approximately 1.3 cm x 0.8 cm and the central right lower lobe seen on image 208, series 3. No septal thickening or nodularity. No other suspicious mass or nodules. No pleural effusions or pneumothorax. Central and peripheral airways appear patent and normal in caliber. Mediastinum: Heart size is normal. No pericardial effusion. No mediastinal or hilar adenopathy by size criteria. Thoracic aorta and central pulmonary arteries are normal in size. Esophagus is normal in caliber. There is a moderate-sized hiatal hernia which has increased in size. Chest wall: No axillary or supraclavicular adenopathy by size criteria. Thyroid gland is unremarkable. ABDOMEN: Solid organs: Liver is normal in size and enhancement. Gallbladder is surgically absent with persistent dilatation of the common bile duct likely related to post cholecystectomy physiologic dilatation. This has not significantly changed. Minimal prominence of the central intrahepatic biliary ducts is again noted. No pneumobilia. Pancreas enhances normally. Spleen is normal in size and enhancement. No adrenal nodules. Kidneys demonstrate normal size and enhancement, without hydronephrosis. Peritoneum and bowel: There is a segment of thickened, inflamed small bowel in the midline lower abdomen measuring up to 2.3 cm in diameter and more thickening measuring up to 7 mm in thickness. No pneumatosis. There is mild adjacent inflammatory stranding. Scattered ascites noted throughout the abdomen and pelvis. No organized fluid collections. No free air. Numerous fluid filled loops of small bowel are also noted. The colon is generally decompressed without wall thickening. No pericolonic inflammatory stranding. Nodes and vessels: No retroperitoneal or mesenteric adenopathy by size criteria. Scattered atherosclerotic calcifications of the abdominal aorta and iliac vessels without aneurysmal dilatation. There are atherosclerotic calcifications at the origins of the bilateral renal arteries, celiac trunk, and SMA. The visualized vessels distal to the origins appear widely patent without intraluminal filling defects. Miscellaneous: No ventral hernias. PELVIS: Genitourinary: Urinary bladder wall thickness is normal. Uterus is again not visualized and presumably surgically removed. Miscellaneous: No pelvic adenopathy. Small left fat containing inguinal hernia without acute inflammatory changes. Bones: No suspicious bony lesions. No acute vertebral body compression fractures. Multilevel spondylitic changes throughout the imaged spine. L5 pars defect with minimal grade 1 anterolisthesis of L5 on S1. This is stable. IMPRESSION: 1. Segment of thickened, inflamed small bowel in the midline lower abdomen without significant dilatation, pneumatosis, or definite transition point. Findings may represent an acute infectious/inflammatory process although early developing obstruction or ischemic enteritis not completely excluded. There is associated ascites and reactive lymph nodes. Consider surgical consultation. 2. A 1.3 cm right upper lobe and a 1.3 cm right lower lobe groundglass nodule. No focal consolidation. These may represent inflammatory nodules although neoplastic process not excluded. Recommend followup CT in 3-6 months to document stability versus resolution. 3. Interval enlargement of now moderate sized hiatal hernia. No evidence for rupture or pneumomediastinum. 4. Status post cholecystectomy with stable appearance of dilated common bile duct and minimal intrahepatic biliary ductal prominence, favored to represent postcholecystectomy physiologic dilatation. Other chronic findings as above. Findings were discussed with Dr. Lujan at 1140 hrs. Dictated by: Shar Joshi M.D. on 06/27/2019 at 11:03 Approved by: Shar Joshi M.D. on 06/27/2019 at 11:42
[2019-06-27] MEDS: SODIUM CHLORIDE 0.9% 1,000 ML 150 ML IV (11:59)
[2019-06-27] MEDS: PIPERACILLIN-TAZO 3.375 GM/50 ML FROZ.PIGGY IV (12:51)
[2019-06-27 12:53] LABS: Bacteria Urine None Seen; RBC Urine None Seen (0-5/HPF)
[2019-06-27 13:03] LABS: Culture Indicated Urine Cult Not Indicated; Squamous Epithelial Cell Urine 0-1 /HPF (0-5/HPF); WBC Urine 0-1/HPF (0-5/HPF)
[2019-06-27] MEDS: MORPHINE 4 MG/ML INJ 2 MG IV (13:29)
--- NOTE | 2019-06-27 14:43 | P.CONS_ITS ---
History of Present Illness Consult details Date Patient Seen: 06/27/19 Time Patient Seen: 14:43 Chief complaint: VOMITING/ABDOMINAL PAIN Reason for consult: abdominal pain Narrative: Annie is an 83-year-old female who presents the to the emergency room with worsening acute abdominal pain. She was seen in the emergency room the day prior for abdominal pain and was felt to have an adverse reaction to Flagyl when she combined it with alcohol. She had severe nausea and vomiting yesterday evening after leaving the emergency room and had a worsening bilateral lower abdominal pain. On presentation today blood pressure 200/90, pulse 80s, WBC 14, hematocrit 41 HCO3 19, Cr 1.2. CT abdomen pelvis demonstrates a segment small bowel in the lower abdomen that is inflamed with stranding. There is no evidence pneumoperitoneum or pneumatosis. No history of coronary artery disease, valvular disease, arrhythmia, peripheral vascular disease, diabetes, or, pulmonary insufficiency. They are a nonsmoker and not on anticoagulation. History of appendectomy, bladder suspension, hysterectomy. Meds Home Medications and Allergies Home Medications Medication Instructions Recorded Confirmed Type ASPIRIN (#ASPIRIN) 325 mg PO QDAY #0 12/20/10 09/16/17 History loratadine [Claritin] 10 mg PO PRN #0 12/20/10 History amlodipine 2.5 mg PO DAILY 09/16/17 09/16/17 History omeprazole 20 mg PO DAILY 09/16/17 09/16/17 History ondansetron 4 mg PO Q6-8H PRN #10 tab 06/26/19 Rx acyclovir 800 mg PO DAILY 06/27/19 06/27/19 History amoxicillin 500 mg PO BEDTIME 06/27/19 06/27/19 History estradiol 1 mg PO DAILY 06/27/19 06/27/19 History lisinopril-hydrochlorothiazide 1 tab PO DAILY 06/27/19 06/27/19 History metronidazole 500 mg PO BID 06/27/19 06/27/19 History rosuvastatin 20 mg PO BEDTIME 06/27/19 06/27/19 History Allergies Allergy/AdvReac Type Severity Reaction Status Date / Time adhesive tape [ADHESIVE TAPE] Allergy Severe Rash Verified 06/27/19 09:27 codeine [CODEINE] Allergy Severe respiratory Verified 06/27/19 09:27 failure diazepam [DIAZEPAM] Allergy Severe respiratory Verified 04/27/20 09:27 problems procaine [PROCAINE] Allergy Severe SEVERE Verified 06/27/19 09:27 FACIAL SWELLING Review of Systems Review of Systems Narrative: A 10 point review of systems is negative except as noted in the HPI Exam Vital Signs (past 8 hours): - 06/27/19 09:23 06/27/19 10:00 06/27/19 10:30 Temperature 98.8 F Pulse Rate 99 H 86 72 Respiratory Rate 27 H 24 14 Blood Pressure Blood Pressure [Left Arm] 196/97 H 189/100 H 187/89 H Pulse Oximetry 97 97 99 06/27/19 11:00 06/27/19 11:45 06/27/19 12:00 Temperature Pulse Rate 85 72 74 Respiratory Rate 17 19 23 Blood Pressure Blood Pressure [Left Arm] 181/85 H 179/84 H 171/84 H Pulse Oximetry 100 95 98 06/27/19 12:15 06/27/19 12:30 06/27/19 13:00 Temperature Pulse Rate 76 79 82 Respiratory Rate 15 15 19 Blood Pressure Blood Pressure [Left Arm] 183/87 H 170/78 H 181/84 H Pulse Oximetry 97 98 99 06/27/19 13:15 06/27/19 13:20 06/27/19 14:00 Temperature 99 F Pulse Rate 82 94 H 80 Respiratory Rate 12 16 16 Blood Pressure 146/70 H 181/73 H Blood Pressure [Left Arm] 168/74 H Pulse Oximetry 98 98 97 Oxygen Delivery Method Room Air Oxygen Flow Rate 0 Narrative Exam Narrative: General-no acute distress, well nourished HEENT-moist mucous membranes, no scleral icterus Neck-supple, no lymphadenopathy Chest- non labored respirations, clear to auscultation bilaterally Cardiac-regular rate no peripheral edema Abdomen-nondistended. Focal peritonitis lower midline. Extremities-warm, well perfused Neurological-alert and oriented, no focal deficits. Objective Labs Result Diagrams: 06/27/19 14:54 06/27/19 14:54 Labs: Laboratory Results - last 24 hr 06/27/19 06/27/19 06/27/19 09:30 09:30 09:30 WBC 13.7 H RBC 4.17 Hgb 13.8 Hct 40.5 MCV 97.1 MCH 33.2 MCHC 34.1 RDW 12.3 Plt Count 270 Neut % (Auto) 64.9 Lymph % (Auto) 27.4 [place] % (Auto) 6.8 Eos % (Auto) 0.1 L Baso % (Auto) 0.8 Neut # (Auto) 8900 H Lymph # (Auto) 3800 [place] # (Auto) 900 Eos # (Auto) 0 Baso # (Auto) 100 PT 10.5 INR 0.9 APTT 28 Sodium 137 Potassium 3.4 Chloride 103 Carbon Dioxide 19 L BUN 23 H Creatinine 1.15 H Estimated GFR 45.3 L BUN/Creatinine Ratio 20.0 Glucose 125 H Calcium 9.3 Total Bilirubin 0.9 AST 39 H ALT 17 Alkaline Phosphatase 47 Total Protein 8.2 Albumin 4.7 Globulin 3.5 Albumin/Globulin Ratio 1.3 Lipase 140 D Urine RBC Urine WBC Ur Squamous Epith Cells Urine Bacteria Ur Culture Indicated? 06/27/19 12:50 WBC RBC Hgb Hct MCV MCH MCHC RDW Plt Count Neut % (Auto) Lymph % (Auto) [place] % (Auto) Eos % (Auto) Baso % (Auto) Neut # (Auto) Lymph # (Auto) [place] # (Auto) Eos # (Auto) Baso # (Auto) PT INR APTT Sodium Potassium Chloride Carbon Dioxide BUN Creatinine Estimated GFR BUN/Creatinine Ratio Glucose Calcium Total Bilirubin AST ALT Alkaline Phosphatase Total Protein Albumin Globulin Albumin/Globulin Ratio Lipase Urine RBC None seen Urine WBC 0-1/hpf Ur Squamous Epith Cells 0-1 /hpf Urine Bacteria None seen Ur Culture Indicated? Cult not indicated Assessment & Plan Assessment & Plan narrative: 83-year-old female with acute onset of abdominal pain and focal peritonitis of her lower midline. I reviewed her laboratory studies which demonstrated white blood cell count 14 a mild DANTE. Her CT I have reviewed demonstrates segment of small bowel thickening with stranding and free fluid.. There is no pneumatosis or pneumoperitoneum. I repeated her laboratory studies white count continues to be 14 lactic acid 0.8. Pre examined her abdomen she continues to have focal peritonitis. Unclear etiology of her enteritis potentially ischemic vs infectious. I recommended that we proceed with diagnostic laparoscopy, possible exploratory laparotomy and bowel resection. We discussed the risks of the procedure including bleeding, infection, anastamotic leak, hernia formation, heart attack, stroke. Her questions have been answered and she is in agreement with this plan.
--- NOTE | 2019-06-27 14:51 | PC.NURSE ---
Patient arrived to 214 from ER at 1400, oriented to room and call light. Dr. Yun into see patient. Patient denies nausea at this time, abdomen remains tender to touch and puffy, patient sleepy but awakens easily and answers questions appropriately. Call light within reach, bed alarm on for safety. Continue with plan of care.
--- NOTE | 2019-06-27 14:54 | PM.HP.1 ---
History of Present Illness History of Present Illness Date Patient Seen: 06/27/19 Time Patient Seen: 14:54 Chief complaint: VOMITING/ABDOMINAL PAIN Narrative: Annie Ryan is an 83-year-old female with past medical history of hypertension, rheumatoid arthritis who presented to the emergency room with worsening abdominal pain. Recently had a dental infection is been taking Flagyl. She drink wine and shortly after that developed severe nausea and vomiting. She presented to the emergency room yesterday and was given antiemetic and discharged home after laboratory evaluation was unremarkable. Overnight she began to develop severe (9/10) worsening bilateral lower and then generalized diffuse abdominal pain, radiating into her back and came back into the emergency room. Her emesis was nonbloody nonbilious and she states that she had a bowel movement yesterday that was loose but there was no hematochezia or melena. In the emergency room, her initial blood pressure was 200/90, pulse in the 80s, but other vital signs were unremarkable. Initial laboratory evaluations showed a a WBC of 13.7, creatinine of 1.15 from a baseline of 0.9, AST of 39, but no other lab abnormalities. UA was unremarkable. CT abdomen and pelvis demonstrated a small segment of her small bowel in the lower abdomen that was inflamed with stranding. She does endorse prior intra-abdominal surgeries including appendectomy. Surgery was consulted who recommended admission to Medicine for further monitoring. Patient History Medical History Barretts esophagus (Acute) GE reflux (Acute) Hypertension (Acute) Polymyalgia rheumatica (Acute) Surgical History H/O: hysterectomy (Acute) History of bladder suspension procedure (Acute) Hx of cholecystectomy (Acute) S/P appendectomy (Acute) Family & Social History Social History: household members spouse Safety & Behavioral: Feels Safe in Current Yes Environment Been Physically Hurt or No Threatened By a Person Suicidal Ideation Description None Suicide Plan Description No Plan Tobacco & Substance use: Smoking Status Never smoker alcohol intake frequency 0-2 drinks per day Substance Use Type does not use Meds Home Medications and Allergies Home Medications Medication Instructions Recorded Confirmed Type ASPIRIN (#ASPIRIN) 325 mg PO QDAY #0 12/20/10 06/27/19 History loratadine [Claritin] 10 mg PO PRN #0 12/20/10 06/27/19 History amlodipine 2.5 mg PO DAILY 09/16/17 06/27/19 History omeprazole 20 mg PO DAILY 09/16/17 06/27/19 History ondansetron 4 mg PO Q6-8H PRN #10 tab 06/26/19 06/27/19 Rx acyclovir 800 mg PO DAILY 06/27/19 06/27/19 History amoxicillin 500 mg PO BEDTIME 06/27/19 06/27/19 History estradiol 1 mg PO DAILY 06/27/19 06/27/19 History lisinopril-hydrochlorothiazide 1 tab PO DAILY 06/27/19 06/27/19 History metronidazole 500 mg PO BID 06/27/19 06/27/19 History rosuvastatin 20 mg PO BEDTIME 06/27/19 06/27/19 History Allergies Allergy/AdvReac Type Severity Reaction Status Date / Time adhesive tape [ADHESIVE TAPE] Allergy Severe Rash Verified 06/27/19 09:27 codeine [CODEINE] Allergy Severe respiratory Verified 06/27/19 09:27 failure diazepam [DIAZEPAM] Allergy Severe respiratory Verified 06/27/19 09:27 problems procaine [PROCAINE] Allergy Severe SEVERE Verified 06/27/19 09:27 FACIAL SWELLING Review of Systems Review of Systems Narrative: All other systems reviewed with the patient and are negative unless otherwise stated. Exam Vital Signs (past 8 hours): - 06/27/19 09:23 06/27/19 10:00 06/27/19 10:30 Temperature 98.8 F Pulse Rate 99 H 86 72 Respiratory Rate 27 H 24 14 Blood Pressure Blood Pressure [Left Arm] 196/97 H 189/100 H 187/89 H Pulse Oximetry 97 97 99 06/27/19 11:00 06/27/19 11:45 06/27/19 12:00 Temperature Pulse Rate 85 72 74 Respiratory Rate 17 19 23 Blood Pressure Blood Pressure [Left Arm] 181/85 H 179/84 H 171/84 H Pulse Oximetry 100 95 98 06/27/19 12:15 06/27/19 12:30 06/27/19 13:00 Temperature Pulse Rate 76 79 82 Respiratory Rate 15 15 19 Blood Pressure Blood Pressure [Left Arm] 183/87 H 170/78 H 181/84 H Pulse Oximetry 97 98 99 06/27/19 13:15 06/27/19 13:20 06/27/19 14:00 Temperature 99 F Pulse Rate 82 94 H 80 Respiratory Rate 12 16 16 Blood Pressure 146/70 H 181/73 H Blood Pressure [Left Arm] 168/74 H Pulse Oximetry 98 98 97 Oxygen Delivery Method Room Air Oxygen Flow Rate 0 Narrative Exam Narrative: GENERAL APPEARANCE: Well developed, well nourished female, appears uncomfortable and mildly anxious. SKIN: Inspection of the skin reveals no rashes, ulcerations or petechiae. HEENT: Normocephalic atraumatic, extraocular muscles are intact, oropharynx is clear and mucous membranes are dry, neck is supple without adenopathy NECK: Supple and symmetric. There was no thyroid enlargement, and no tenderness, or masses were felt. CHEST: Normal AP diameter and normal contour without any kyphoscoliosis. LUNGS: Auscultation of the lungs revealed no wheezes, rhonchi, or rales. CARDIOVASCULAR: There was a regular rate and rhythm without any murmurs, gallops, rubs. Peripheral pulses were 2+ and symmetric. ABDOMEN: Soft, moderately tender worse in her bilateral lower quadrants but also her epigastrium. There is no rebound. She did not seem uncomfortable lifting her legs off the bed, but more so upon palpation. MUSCULOSKELETAL: There was no tenderness or effusions noted. Muscle strength and tone were normal. EXTREMITIES: No cyanosis, clubbing or edema. NEUROLOGIC: Alert and oriented x 3. Mildly anxious. Gait was normal. Strength is +5/5 in the Upper Extremities and Lower Extremities Bilaterally. Objective Labs Result Diagrams: 06/27/19 14:54 06/27/19 14:54 Labs: Laboratory Results - last 24 hr 06/27/19 06/27/19 06/27/19 09:30 09:30 09:30 WBC 13.7 H RBC 4.17 Hgb 13.8 Hct 40.5 MCV 97.1 MCH 33.2 MCHC 34.1 RDW 12.3 Plt Count 270 Neut % (Auto) 64.9 Lymph % (Auto) 27.4 [place] % (Auto) 6.8 Eos % (Auto) 0.1 L Baso % (Auto) 0.8 Neut # (Auto) 8900 H Lymph # (Auto) 3800 [place] # (Auto) 900 Eos # (Auto) 0 Baso # (Auto) 100 PT 10.5 INR 0.9 APTT 28 Sodium 137 Potassium 3.4 Chloride 103 Carbon Dioxide 19 L BUN 23 H Creatinine 1.15 H Estimated GFR 45.3 L BUN/Creatinine Ratio 20.0 Glucose 125 H Calcium 9.3 Total Bilirubin 0.9 AST 39 H ALT 17 Alkaline Phosphatase 47 Total Protein 8.2 Albumin 4.7 Globulin 3.5 Albumin/Globulin Ratio 1.3 Lipase 140 D Urine RBC Urine WBC Ur Squamous Epith Cells Urine Bacteria Ur Culture Indicated? 06/27/19 12:50 WBC RBC Hgb Hct MCV MCH MCHC RDW Plt Count Neut % (Auto) Lymph % (Auto) [place] % (Auto) Eos % (Auto) Baso % (Auto) Neut # (Auto) Lymph # (Auto) [place] # (Auto) Eos # (Auto) Baso # (Auto) PT INR APTT Sodium Potassium Chloride Carbon Dioxide BUN Creatinine Estimated GFR BUN/Creatinine Ratio Glucose Calcium Total Bilirubin AST ALT Alkaline Phosphatase Total Protein Albumin Globulin Albumin/Globulin Ratio Lipase Urine RBC None seen Urine WBC 0-1/hpf Ur Squamous Epith Cells 0-1 /hpf Urine Bacteria None seen Ur Culture Indicated? Cult not indicated Assessment & Plan Assessment & Plan narrative: Annie Ryan is an 83-year-old female with past medical history of hypertension, rheumatoid arthritis who presented to the emergency room with worsening abdominal pain. On CT imaging she was noted to have a short segment of small bowel colitis in her lower abdomen, etiology is unclear. Patient is admitted to Medicine with surgical consultation. 1. Small-bowel enteritis, acute, present on admission - CT on admission with a Segment of thickened, inflamed small bowel in the midline lower abdomen without significant dilatation, pneumatosis, or definite transition point. There is associated ascites and reactive lymph nodes. -findings may represent an infectious process, ischemia, or early obstruction -general surgery, Dr. Evangelista, is following and appreciate his management. -pain control with morphine 2 mg q.1 hour at this time, continue to readjust as necessary -patient was given Zosyn in the emergency room, and although her WBC is elevated at 14 she has been on Flagyl but I do not suspect this to be infectious given lack of diarrhea. Will continue to monitor after fluid rehydration. 2. Pulmonary nodule, incidental finding -recommend repeat CT imaging in 6 months to confirm stability and/or resolution 3. Hypertension, chronic -patient is hypertensive likely secondary to pain, continue pain control. -given patient's severity of presenting pain will hold home medications in the short term, resume as clinical status changes. Code: Full, patient has an Advance directive on file and is scanned into the chart. DVT: Will hold in case of possible operative interventions, SCDs only Dispo: Admitted under observation status this time, pending further evaluation of the cause of her colitis.
[2019-06-27 15:02] LABS: Add Manual Diff / Slide Review NO; Basophils Absolute Auto 0 /uL (0-100); Basophils Percent Auto 0.2 % (0-2); Eosinophils Absolute Auto 0 /uL (0-450); Eosinophils Percent Auto 0.1 % (2-4); Hematocrit 42.2 % (36-46); Hemoglobin 14.3 g/dL (12.0-16.0); Lymphocytes Absolute Auto 700 /uL (1100-4500); Lymphocytes Percent Auto 4.7 % (25-40); Mean Corpuscular HGB Conc 33.8 % (30-36); Mean Corpuscular Hemoglobin 33.1 PG (26-34); Mean Corpuscular Volume 97.9 fL (80-100); Monocytes Absolute Auto 300 /uL (0-900); Monocytes Percent Auto 2.2 % (3-14); Neutrophils Absolute Auto 13000 /uL (1500-7000); Neutrophils Percent Auto 92.8 % (50-75); Platelet Count 242 X10^3/uL (150-400); Red Blood Cell Count 4.31 X10^6/uL (4.0-5.2); Red Cell Distribution Width 12.5 % (11.6-14.8)
[2019-06-27 15:20] LABS: Lactate (Lactic Acid) 0.8 mmol/L (0.7-2.1)
[2019-06-27 15:21] LABS: BUN Creatinine Ratio 21.2 (6-22); Blood Urea Nitrogen 21 mg/dL (7-17); Carbon Dioxide 21 mmol/L (22-32); Chloride 106 mmol/L (98-107); Estimated Glomerular Filt Rate 53.8 mL/min (>60); Glucose 142 mg/dL (80-110); HEMOLYSIS < 15 (0-50); Potassium 3.3 mmol/L (3.4-5.1); Sodium 137 mmol/L (137-145)
[2019-06-27] MEDS: MORPHINE 2 MG/ML INJ IV (15:38)
[2019-06-27] MEDS: SODIUM CHLORIDE 0.9% 1,000 ML 125 ML IV (17:30)
[2019-06-27] MEDS: CEFAZOLIN 2 GM/100 ML FROZ.PIGGY IV (18:18)
--- NOTE | 2019-06-27 18:34 | PC.NURSE ---
Addendum entered by Nathalie Malloy R.N. 06/27/19 22:16: Abdominal dsg CDI, drain in place w/ dark drainage. Addendum entered by Nathalie Malloy R.N. 06/27/19 22:15: Pt returned from PACU , Resting quietly at this time. IVF infusing as per orders. Hamilton cath patent clear urine. Call light w/in neo, bed alrm on for pt safety. Continue w/plan of care. Original Note: Pt resting quietly, MD in to see. Lungs clear, SpO2 998% RA IVF infusing via pump as per orders w/o incidence. Denies discomfort at this time. Pt escorted to OR by OR staff @ 1800.
[2019-06-27] MEDS: BUPIVACAINE 0.25% (PF) VIAL 30 ML INJ (19:05)
--- NOTE | 2019-06-27 20:04 | PM.OP.1 ---
Operative Date/Time/Diagnoses Date of procedure: 06/27/19 Time of procedure: 20:04 Pre-op diagnosis: Ischemic enteritis Post-op diagnosis: other (Mesenteric ischemia) Procedure & Clinicians Procedure: Diagnostic laparoscopy Exploratory laparotomy Enterectomy Same procedure as scheduled: Yes Indications: This is a woman who presented with focal peritonitis CT scan demonstrating small-bowel thickening and intra abdominal fluid. She was brought her to the operating room to rule of intestinal necrosis. Surgeon: Panda Evangelista Click Yes if Unassisted: Yes Anesthesia Type: General Operative Notes Findings: inta abdominal adhesion just proximal to infarcted small bowel (distal ileum approximately 10 inches of length) Specimen(s): other (small bowel resection) Estimated Blood Loss (mL): 100 Procedure in detail: Patient was brought to the operating room and placed supine on the table. Bilateral lower extremity compression devices were applied. General anesthesia was induced and she was intubated with an endotracheal tube. She received Zosyn in the emergency room and received Ancef prior to skin incision. An infraumbilical incision was made the umbilical stalk was grasped elevated and the fascia sharply incised. The abdomen was entered atraumatically and a 12 mm balloon trocar was then placed in the abdomen and insufflation was established. The laparoscope was inserted into the abdomen. There was no evidence of injury upon entry. There was a segment of small bowel in the pelvis that was frankly necrotic. The laparoscopic instruments were passed off the field and I extended the existing incision in the lower midline fashion. Subcutaneous tissues were divided and the abdomen was entered atraumatically. There was a large amount of intra abdominal fluid that was suctioned. This fluid was turbid but not feculent. The small bowel was eviscerated from the abdomen. There were multiple intra-abdominal adhesions which were sharply lysed with [place]. There was omentum plastering the colon down to the pelvis which was divided using the LigaSure. Finally the entirety of the small bowel was eviscerated. There was a segment of necrotic small bowel of the distal ileum of approximately 10 in in length. Just proximal to this necrotic small bowel there was a band of scar tissue forming an internal hernia. This band was sharply incised releasing the small bowel content. The small bowel was run in its entirety from the ligament Treitz to the terminal ileum. The only segment of necrotic bowel was of the distal ileum. I chose a point proximal and distal to the necrosis of viable bowel. Window within the mesentery was made and the bowel was transected using the Endo GAIL stapler with blue load. The specimen was then resected using the LigaSure. The small ends of small bowel were placed to fashion a [id number] anastomosis. A crotch stitch was placed with 3 0 of silk. Then an enterotomy was made in each limb and the stapler was used to create a common channel 45 blue staple. I inspected the common channel and was patent and hemostatic. The common channel opening was then closed with a running 3 0 PDS. The anastomosis was tested for its patency and its integrity. I closed the mesenteric defect with running 3 0 Vicryl suture. The abdomen was then irrigated with 4 L of sterile saline and its with lavage was returned clean. There was some generalized oozing from her daily aspirin which ceased and hemostasis was achieved. A 19 [place] drain was then placed into the pelvis adjacent to the anastomosis. This was brought out through the right abdominal wall fashion with nylon suture. The abdomen was then closed the fascia was closed from above and below using 1. PDS. The subcutaneous tissues were a than reapproximated using Vicryl suture skin closed with amadou. Patient tolerated the procedure well she emerged from anesthesia was extubated and transferred to recovery room in stable condition. Complications: none Post-operative Condition: stable Disposition: Acute Care
[2019-06-27] MEDS: fentaNYL 100 MCG/2 ML INJ IV (20:14)
[2019-06-27] MEDS: HYDROMORPHONE 2 MG INJ IV (20:19)
--- NOTE | 2019-06-27 20:22 | SUR.PHASEI ---
Surgical dressing on abdomen observed to be c/d/i.
--- NOTE | 2019-06-27 20:59 | SUR.PHASEI ---
pt transferred to acute care floor in stable condition, vss. Bedside report given to MIKO Su upon arrival to room. Transferred care of pt to MIKO Su at that time. Pt alert and talking to nursing staff.
[2019-06-27] MEDS: ROSUVASTATIN 10 MG TABLET 20 MG PO (21:25)
[2019-06-28] VITALS (12 sets, daily range): BP systolic 120–156; BP diastolic 54–82; PULSE 78–93; RESP 16–18; TEMP 36.3–37.2; O2SAT 91–97
--- NOTE | 2019-06-28 00:33 | PC.NURSE ---
Addendum entered by Johanny Michelle R.N. 06/28/19 05:47: Complains of 2/10 incisional pain but no pain meds ordered so spoke with KHAI Mauricio, who ordered Tylenol which patient now medicated with. Oxygen sat is 96% this morning on 0.5L/min oxygen. Addendum entered by Johanny Michelle R.N. 06/28/19 01:00: Noted while asleep O2 sat dropped to 89% so oxygen restarted at 0.5L/min per MA Original Note: Patient is alert and oriented. Breath sounds CTA; on oxygen at shift change with sat of 100% so decreased to 1L/min with sat remaining good at 97% so now placed on RA and sat is 95%. Remains on continuous pulse oximetry. HRR with telemetry reading of SR. Denies nausea. BT present but denies flatus. Abdominal dressing intact with shadow drainage toward top left edge of dressing. Fili drain emptied of 80cc sanguineous fluid and now is intact and compressed. Able to move self in bed but has not yet been out of bed since return from surgery so gait is not assessed. Denies pain. Wearing bilateral calf SCD's. Fall risk score is moderate and bed alarm is activated.
[2019-06-28] MEDS: PANTOPRAZOLE 20 MG TABLET PO (05:26)
[2019-06-28] MEDS: ACETAMINOPHEN 325 MG TABLET 650 MG PO ×3 (05:45→13:22)
[2019-06-28 06:01] LABS: Add Manual Diff / Slide Review NO; Basophils Absolute Auto 0 /uL (0-100); Basophils Percent Auto 0.2 % (0-2); Eosinophils Absolute Auto 0 /uL (0-450); Hematocrit 36.3 % (36-46); Hemoglobin 12.2 g/dL (12.0-16.0); Lymphocytes Absolute Auto 600 /uL (1100-4500); Lymphocytes Percent Auto 4.1 % (25-40); Mean Corpuscular HGB Conc 33.6 % (30-36); Mean Corpuscular Volume 98.1 fL (80-100); Monocytes Absolute Auto 700 /uL (0-900); Monocytes Percent Auto 4.9 % (3-14); Neutrophils Absolute Auto 13000 /uL (1500-7000); Neutrophils Percent Auto 90.8 % (50-75); Platelet Count 223 X10^3/uL (150-400); Red Cell Distribution Width 12.9 % (11.6-14.8); White Blood Cell Count 14.3 X10^3/uL (4.5-11.0)
[2019-06-28 06:16] LABS: BUN Creatinine Ratio 20.2 (6-22); Blood Urea Nitrogen 20 mg/dL (7-17); Calcium 7.8 mg/dL (8.4-10.2); Carbon Dioxide 27 mmol/L (22-32); Chloride 104 mmol/L (98-107); Estimated Glomerular Filt Rate 53.8 mL/min (>60); Glucose 171 mg/dL (80-110); HEMOLYSIS < 15 (0-50); Magnesium 1.8 mg/dL (1.6-2.3); Potassium 3.8 mmol/L (3.4-5.1); Sodium 136 mmol/L (137-145)
[2019-06-28] MEDS: SODIUM CHLORIDE 0.9% FLUSH 10 ML IV (08:58)
[2019-06-28] MEDS: metroNIDAZOLE 500 MG TABLET PO (08:59)
[2019-06-28] MEDS: estradioL 1 MG TABLET PO (08:59)
[2019-06-28] MEDS: ACYCLOVIR 400 MG TABLET 800 MG PO (09:02)
[2019-06-28] MEDS: lisinopriL 20 MG TABLET PO (09:02)
[2019-06-28] MEDS: hydroCHLOROthiazide 12.5 MG CAPSULE PO (09:04)
--- NOTE | 2019-06-28 09:51 | PM.PNPO.1 ---
Subjective Subjective Date Patient Seen: 06/28/19 Time Patient Seen: 09:51 Interval history: No acute overnight events. Abdominal pain significantly improved from past 24 hours. No nausea vomiting. Tolerated a small amount of clear liquids. No flatus or bowel movement. Exam Vital Signs (past 8 hours): - 06/28/19 03:23 06/28/19 08:00 06/28/19 08:28 Temperature 97.3 F L 97.4 F L Pulse Rate 93 H 80 79 Respiratory Rate 16 18 Blood Pressure 149/71 H 145/82 H Pulse Oximetry 96 97 95 Oxygen Delivery Method Nasal Cannula Oxygen Flow Rate 0.5 Narrative Exam Narrative: General adult female alert oriented no acute distress Chest nonlabored respiration Abdomen soft appropriately tender to palpation dressings clean dry intact ROSIE drain with serosanguineous output. Objective Labs Result Diagrams: 06/28/19 05:35 06/28/19 05:35 Labs: Laboratory Results - last 24 hr 06/27/19 06/27/19 06/27/19 09:30 09:30 09:30 WBC 13.7 H RBC 4.17 Hgb 13.8 Hct 40.5 MCV 97.1 MCH 33.2 MCHC 34.1 RDW 12.3 Plt Count 270 Neut % (Auto) 64.9 Lymph % (Auto) 27.4 [place] % (Auto) 6.8 Eos % (Auto) 0.1 L Baso % (Auto) 0.8 Neut # (Auto) 8900 H Lymph # (Auto) 3800 [place] # (Auto) 900 Eos # (Auto) 0 Baso # (Auto) 100 PT 10.5 INR 0.9 APTT 28 Sodium 137 Potassium 3.4 Chloride 103 Carbon Dioxide 19 L BUN 23 H Creatinine 1.15 H Estimated GFR 45.3 L BUN/Creatinine Ratio 20.0 Glucose 125 H Lactate Calcium 9.3 Magnesium Total Bilirubin 0.9 AST 39 H ALT 17 Alkaline Phosphatase 47 Total Protein 8.2 Albumin 4.7 Globulin 3.5 Albumin/Globulin Ratio 1.3 Lipase 140 D Urine RBC Urine WBC Ur Squamous Epith Cells Urine Bacteria Ur Culture Indicated? 06/27/19 06/27/19 06/27/19 12:50 14:54 14:54 WBC 14.0 H RBC 4.31 Hgb 14.3 Hct 42.2 MCV 97.9 MCH 33.1 MCHC 33.8 RDW 12.5 Plt Count 242 Neut % (Auto) 92.8 H D Lymph % (Auto) 4.7 L D [place] % (Auto) 2.2 L Eos % (Auto) 0.1 L Baso % (Auto) 0.2 Neut # (Auto) 78688 H Lymph # (Auto) 700 L [place] # (Auto) 300 Eos # (Auto) 0 Baso # (Auto) 0 PT INR APTT Sodium Potassium Chloride Carbon Dioxide BUN Creatinine Estimated GFR BUN/Creatinine Ratio Glucose Lactate 0.8 Calcium Magnesium Total Bilirubin AST ALT Alkaline Phosphatase Total Protein Albumin Globulin Albumin/Globulin Ratio Lipase Urine RBC None seen Urine WBC 0-1/hpf Ur Squamous Epith Cells 0-1 /hpf Urine Bacteria None seen Ur Culture Indicated? Cult not indicated 06/27/19 06/28/19 06/28/19 14:54 05:35 05:35 WBC 14.3 H RBC 3.70 L Hgb 12.2 Hct 36.3 MCV 98.1 MCH 33.0 MCHC 33.6 RDW 12.9 Plt Count 223 Neut % (Auto) 90.8 H Lymph % (Auto) 4.1 L [place] % (Auto) 4.9 Eos % (Auto) 0.0 L Baso % (Auto) 0.2 Neut # (Auto) 23123 H Lymph # (Auto) 600 L [place] # (Auto) 700 Eos # (Auto) 0 Baso # (Auto) 0 PT INR APTT Sodium 137 136 L Potassium 3.3 L 3.8 Chloride 106 104 Carbon Dioxide 21 L 27 BUN 21 H 20 H Creatinine 0.99 0.99 Estimated GFR 53.8 L 53.8 L BUN/Creatinine Ratio 21.2 20.2 Glucose 142 H 171 H Lactate Calcium 8.0 L 7.8 L Magnesium 1.8 Total Bilirubin AST ALT Alkaline Phosphatase Total Protein Albumin Globulin Albumin/Globulin Ratio Lipase Urine RBC Urine WBC Ur Squamous Epith Cells Urine Bacteria Ur Culture Indicated? Assessment & Plan Post-op Postoperative Procedures: Procedures Operation Date: 06/27/19 18:00 Actual Procedures Side Surgeon p Laparoscopy, Diagnostic to open laparotomy with small bowel resection Panda Evangelista MD Postoperative plan narrative: 83-year-old female postoperative day 1 status post exploratory laparotomy and small-bowel resection of necrotic segment of small bowel. She is overall doing well. -continue clear liquid diet, okay for chewing gum, await return of bowel function prior to advancing diet -out of bed to chair ambulate, -physical therapy consult -remove Hamilton catheter -continue amoxicillin for dental abscess -will hold aspirin for today as well as chemical DVT prophylaxis, continue SCDs Time Spent With Patient Time with patient: Greater than 35 minutes
--- NOTE | 2019-06-28 10:05 | PM.PN.1 ---
Subjective Subjective Date Patient Seen: 06/28/19 Time Patient Seen: 10:08 Interval history: Annie Ryan is an 83-year-old female with past medical history of hypertension, rheumatoid arthritis who presented to the emergency room with worsening abdominal pain. She is seen for follow-up today. She is currently postop day 1 from a diagnostic laparoscopy converted to exploratory laparotomy with small-bowel resection for an area of necrotic bowel likely secondary to an internal hernia. She is feeling much better and tolerating clears this morning she has not had return of bowel function and denies passing any gas. She denies any nausea vomiting. She is appropriately painful over her surgical scars. Exam Vital Signs (past 8 hours): - 06/28/19 03:23 06/28/19 08:00 06/28/19 08:28 Temperature 97.3 F L 97.4 F L Pulse Rate 93 H 80 79 Respiratory Rate 16 18 Blood Pressure 149/71 H 145/82 H Pulse Oximetry 96 97 95 Oxygen Delivery Method Nasal Cannula Oxygen Flow Rate 0.5 Narrative Exam Narrative: GENERAL APPEARANCE: Well developed, well nourished female in no acute distress. SKIN: Inspection of the skin reveals no rashes, ulcerations or petechiae. HEENT: Normocephalic atraumatic, extraocular muscles are intact, oropharynx is clear and mucous membranes are dry, neck is supple without adenopathy NECK: Supple and symmetric. There was no thyroid enlargement, and no tenderness, or masses were felt. CHEST: Normal AP diameter and normal contour without any kyphoscoliosis. LUNGS: Auscultation of the lungs revealed no wheezes, rhonchi, or rales. CARDIOVASCULAR: There was a regular rate and rhythm without any murmurs, gallops, rubs. Peripheral pulses were 2+ and symmetric. ABDOMEN: Soft, appropriately tender, ROSIE drain with serosanguineous output, dressings clear dry and intact. MUSCULOSKELETAL: There was no tenderness or effusions noted. Muscle strength and tone were normal. EXTREMITIES: No cyanosis, clubbing or edema. NEUROLOGIC: Alert and oriented x 3. Calm and cooperative. Strength is +5/5 in the Upper Extremities and Lower Extremities Bilaterally. Objective Labs Result Diagrams: 06/28/19 05:35 06/28/19 05:35 Labs: Laboratory Results - last 24 hr 06/27/19 06/27/19 06/27/19 09:30 09:30 12:50 WBC RBC Hgb Hct MCV MCH MCHC RDW Plt Count Neut % (Auto) Lymph % (Auto) [place] % (Auto) Eos % (Auto) Baso % (Auto) Neut # (Auto) Lymph # (Auto) [place] # (Auto) Eos # (Auto) Baso # (Auto) PT 10.5 INR 0.9 APTT 28 Sodium 137 Potassium 3.4 Chloride 103 Carbon Dioxide 19 L BUN 23 H Creatinine 1.15 H Estimated GFR 45.3 L BUN/Creatinine Ratio 20.0 Glucose 125 H Lactate Calcium 9.3 Magnesium Total Bilirubin 0.9 AST 39 H ALT 17 Alkaline Phosphatase 47 Total Protein 8.2 Albumin 4.7 Globulin 3.5 Albumin/Globulin Ratio 1.3 Lipase 140 D Urine RBC None seen Urine WBC 0-1/hpf Ur Squamous Epith Cells 0-1 /hpf Urine Bacteria None seen Ur Culture Indicated? Cult not indicated 06/27/19 06/27/19 06/27/19 14:54 14:54 14:54 WBC 14.0 H RBC 4.31 Hgb 14.3 Hct 42.2 MCV 97.9 MCH 33.1 MCHC 33.8 RDW 12.5 Plt Count 242 Neut % (Auto) 92.8 H D Lymph % (Auto) 4.7 L D [place] % (Auto) 2.2 L Eos % (Auto) 0.1 L Baso % (Auto) 0.2 Neut # (Auto) 80681 H Lymph # (Auto) 700 L [place] # (Auto) 300 Eos # (Auto) 0 Baso # (Auto) 0 PT INR APTT Sodium 137 Potassium 3.3 L Chloride 106 Carbon Dioxide 21 L BUN 21 H Creatinine 0.99 Estimated GFR 53.8 L BUN/Creatinine Ratio 21.2 Glucose 142 H Lactate 0.8 Calcium 8.0 L Magnesium Total Bilirubin AST ALT Alkaline Phosphatase Total Protein Albumin Globulin Albumin/Globulin Ratio Lipase Urine RBC Urine WBC Ur Squamous Epith Cells Urine Bacteria Ur Culture Indicated? 06/28/19 06/28/19 05:35 05:35 WBC 14.3 H RBC 3.70 L Hgb 12.2 Hct 36.3 MCV 98.1 MCH 33.0 MCHC 33.6 RDW 12.9 Plt Count 223 Neut % (Auto) 90.8 H Lymph % (Auto) 4.1 L [place] % (Auto) 4.9 Eos % (Auto) 0.0 L Baso % (Auto) 0.2 Neut # (Auto) 58943 H Lymph # (Auto) 600 L [place] # (Auto) 700 Eos # (Auto) 0 Baso # (Auto) 0 PT INR APTT Sodium 136 L Potassium 3.8 Chloride 104 Carbon Dioxide 27 BUN 20 H Creatinine 0.99 Estimated GFR 53.8 L BUN/Creatinine Ratio 20.2 Glucose 171 H Lactate Calcium 7.8 L Magnesium 1.8 Total Bilirubin AST ALT Alkaline Phosphatase Total Protein Albumin Globulin Albumin/Globulin Ratio Lipase Urine RBC Urine WBC Ur Squamous Epith Cells Urine Bacteria Ur Culture Indicated? Assessment & Plan Assessment & Plan narrative: Annie Ryan is an 83-year-old female with past medical history of hypertension, rheumatoid arthritis who presented to the emergency room with worsening abdominal pain, she is now postoperative day 1. Status post small bowel resection after finding an area of necrotic bowel on exploration. She is doing well postoperatively, and patient has been transferred to surgical service today. 1. Small-bowel enteritis, acute, present on admission - CT on admission with a Segment of thickened, inflamed small bowel in the midline lower abdomen without significant dilatation, pneumatosis, or definite transition point. There is associated ascites and reactive lymph nodes. -findings may represent an infectious process, ischemia, or early obstruction -general surgery, Dr. Evangelista, performed small-bowel resection on June 26 for an area of necrotic bowel found during exploration. -pain control per surgery -patient was given Zosyn in the emergency room. No further antibiotics seem necessary at this time, agree with surgical management. 2. Pulmonary nodule, incidental finding -recommend repeat CT imaging in 6 months to confirm stability and/or resolution 3. Hypertension, chronic -patient has been resumed on her home medications this morning. Code: Full, patient has an Advance directive on file and is scanned into the chart. Patient was initially admitted to Medicine Service, after exploration she was found to have an area of necrotic bowel and underwent small bowel resection. She was transferred to the surgery service early this morning. Medicine will sign off at this time. Please do not hesitate to reconsult the hospitalist service with any additional questions.
--- NOTE | 2019-06-28 10:29 | PT.IIE ---
Surgery Performed Operation Date: 06/27/19 18:00 Actual Procedures p Laparoscopy, Diagnostic to open laparotomy with small bowel resection - Panda Evangelista MD Surgical History (Last Reviewed 06/27/19 @ 14:51 by Panda Evangelista MD) H/O: hysterectomy (Acute) History of bladder suspension procedure (Acute) Hx of cholecystectomy (Acute) S/P appendectomy (Acute) Medical History (Last Reviewed 06/27/19 @ 14:51 by Panda Evangelista MD) Barretts esophagus (Acute) GE reflux (Acute) Hypertension (Acute) Polymyalgia rheumatica (Acute) Physical Therapy Inpatient Evaluation/Re-Eval M1 PT/OT-IP Prior Functional Status Start: 06/28/19 12:12 Freq: NEEDED Status: Active Protocol: Document 06/28/19 10:29 AB (Rec: 06/28/19 12:23 AB [id number]) Medical Review Prior Functional Status Medical History Reviewed Yes Communication able to make needs known Mobility and Gait pt stated that she is independent with all mobilities and ambulation without AD; able to ambulate ~ 3 miles/day Social History Household Members spouse Living Arrangements House Number of Floors (Floors) One Floor Number of Stairs To Enter/Railing? 4 steps from front without rails 8 steps from the back with bilateral wide rails and can only hold on to one rail at a time Home Environment High Toilet,Walk in Shower Home Equipment Hand Held Shower M2 PT-IP Current Condition Start: 06/28/19 12:12 Freq: NEEDED Status: Active Protocol: Document 06/28/19 10:29 AB (Rec: 06/28/19 12:23 AB [id number]) Physical Therapy Current Condition Current Condition Evaluation Date 06/28/19 Treatment Diagnosis mesenteric ishemia s/p ex lap; enterectomy; difficulty in walking Onset Date 06/27/19 Precautions Abdominal Surgery Precautions Log Roll,Lifting Restrictions, Gait Belt above Incisional Area M3 PT-IP Subjective Start: 06/28/19 12:12 Freq: NEEDED Status: Active Protocol: Document 06/28/19 10:29 AB (Rec: 06/28/19 12:23 AB [id number]) Subjective Physical Therapy Visit Type Type Initial Evaluation Visit Start Time 10:29 Visit Stop Time 10:47 Total Visit Minutes 18 Number of DIGITAL COMMUNITY MANAGER Visits 0 Physical Therapy Visit Comments Patient Comments pt agreeable to do PT Therapy Pain Assessment Pain When Pain Assessed At Rest Pain Present Pain Present Pain Reported Location abd Intensity 4 Scale Used Numeric (1 - 10) Pain Management Techniques Modification of Treatment,Re- positioning,Timing of Activity with Medications M4 PT-IP Mobility and Gait Start: 06/28/19 12:12 Freq: NEEDED Status: Active Protocol: Document 06/28/19 10:29 AB (Rec: 06/28/19 12:23 AB [id number]) PT-Bed Mobility Assessment Rolling Type of Rolling Log Rolling Level of Assist Standby Assistance Supine to Sit Supine to Sit Standby Assistance Sit to Supine Sit to Supine Standby Assistance PT-Transfer Assessment Sit to and From Stand Sit to and from Stand Minimal Assistance,1 Person Assistance Equipment Transfer Assistive Device Gait Belt,Front Wheeled Walker Orthotic/Prosthetic Devices or Brace: No Transfers Transfer Destination Chair Transfer Technique ambulated using FWW Transfer Ability Level of Assist Minimal Assistance,1 Person Assistance,Use of Upper Extremities Comments Mobility Comments pt found sitting on the on EOB with NAC. PT took over. educated pt on abdominal precautions. completed log roll supine<>sit SBA and cues for techniques. completed sit to stand from EOB min A and cues and ambulated in room without AD ~ 20 ft. pt guarded and unsteady with ambulation and tends to hold on to counter/bed for support. instructed pt to sit on chair. educated pt on safety and use of AD at this time. assessed ambulation using FWW and pt completed ~ 20 ft requiring CGA and cues. pt agreed to sit up on chair. positioned on chair. call light and table placed within reach. Gait Assessment Gait Gait Assistance Required: Contact Guard Assist,Minimum Assistance,1 Person Assist Distance (Feet) 20 Able to Maintain Weight Bearing Status Yes During Gait Assistive Devices Assistive Device None,Gait Belt,Front Wheeled Walker Orthotic/Prosthetic Devices or Brace: No Gait Deviations General Gait Pattern Antalgic,Decreased Stride Length,Decreased Feet Clearance Factors Limiting Gait Function Factors Limiting Gait Function Decreased Activity Tolerance, Decreased Strength,Pain,Poor Balance Comments Gait Comments pls refer to mobility section for details. recommending use of FWW at this time and will progress towards without AD PT-Balance Assessment Sitting Balance and Reactions Static Sitting Balance Ability Good Dynamic Sitting Balance Ability Good Standing Balance and Reactions Static Standing Balance Ability Fair Dynamic Standing Balance Ability Fair Device Used FWW M5 PT-IP Objective Assessments Start: 06/28/19 12:12 Freq: NEEDED Status: Active Protocol: Document 06/28/19 10:29 AB (Rec: 06/28/19 12:23 AB [id number]) Orientation Orientation/Cognition Level of Alertness Alert Orientation Name,Age,Place,Situation Language Function Ability No Deficits Noted Safety Awareness Understands Safety Issues Memory Description No Deficits Noted Gross Range of Motion Lower Extremity ROM Assessment Within Functional Limits Strength Lower Extremity Strength Assessment Within Functional Limits Coordination Assessment Gross Coordination Gross Coordination WNL Sensation Assessment Sensation Gross Sensation WNL Muscle Tone Muscle Tone WNL Yes M6 PT-IP Treatment Start: 06/28/19 12:12 Freq: NEEDED Status: Active Protocol: Document 06/28/19 10:29 AB (Rec: 06/28/19 12:23 AB [id number]) Physical Therapy Treatment Education Education Provided Precautions,Safety M7 PT-IP Assessment and Plan Start: 06/28/19 12:12 Freq: NEEDED Status: Active Protocol: Document 06/28/19 10:29 AB (Rec: 06/28/19 12:23 AB [id number]) PT Summary Assessment and Plan Potential Rehabilitation Potential Good Status of Condition at Evaluation Stable Summary Impairments Pain,ROM,Strength,Balance,Bed Mobility,Transfers,Gait, Activity Tolerance Assessment Summary pt requiring min A at this time and presents with unsteady gait requiring use of FWW at this time. will continue PT to improve ambulation and independence. pt stated that her spouse will be able to assist her at home . will conduct caregiver training when appropriate and will complete stair climbing training prior to d/c. at this time, pt may require homehealth PT/outpt PT. Goals Bed Mobility Goal Independent Transfer Goal Independent,Front Wheeled Walker Gait Goal Independent,Front Wheel Walker Gait Distance 100 Other Goals improve ambulation 200 ft without AD SBA up/down 8 steps 1 rail SBA; 4 steps without rails SBA to CGA Days to Meet Goals 5 Frequency of Treatment Frequency Of Treatment Once a Day Treatment Plan Physical Therapy Treatment Plan Bed Mobility Training,Transfer Training,Gait Training, Therapeutic Exercise,Balance Retraining,Post Op Education, Discharge Planning,Hot or Cold Pack,Neuromuscular Re-ed, Coordination Retraining,Manual Therapy Recommendations To Nursing Amount of Assist Needed 1 Person Assist Discharge Recommendations PT Discharge Recommendations Home with Assistance,Home Health,Outpatient PT Equipment Needed for Home Before FWW if not safe without AD Discharge Transportation Needs at Discharge Private Vehicle
[2019-06-28] MEDS: SODIUM CHLORIDE 0.9% 1,000 ML 125 ML IV (11:18)
[2019-06-28] MEDS: ONDANSETRON 4 MG/2 ML INJ IV ×2 (12:05→17:50)
--- NOTE | 2019-06-28 12:21 | PC.NURSE ---
Addendum entered by Zaira Camp R.N. 06/28/19 13:50: Medicated with Tylenol for 3/10 abd pain. Discussed removal of ingram catheter. Patient says she has lots of urgency and would like to nap before the catheter comes out. Remains on room air (94-96%), cont pulse ox on while she's sleeping. Call light and belongings within reach, bed alarm on. Addendum entered by Zaira Camp R.N. 06/28/19 12:52: Reports nausea improved after IV Zofran, no further emesis as of this time. Assisted back to bed per patient request. Bag of belongings from home (clothing, cellphone, glass technician, personal care items, etc.) brought from home and given to patient. Call light in reach, cellphone charging and within reach, bed alarm on. Original Note: Shift summary: Alert and oriented X3. BT+ X4, hypoactive. Denies passing flatus yet. Belching occasionally Large abd dressing dry/intact with lemon-sized area of shadow drainage on L side (outlined at time of assessment). Fili drain patent to compression w/ serosanguinous drainage. Reports pain well-managed with Tylenol. Up to chair approx. 1030 and remains up at this time. 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 This lead technical writer spoke w/ Dr Capellan re: N/V- new order for Zofran received and was admin to patient as ordered. Remains on clear liquids, not much appetite. IVF started per new order, site in L hand WNL. Ingram patent to gravity w/ clear yellow urine- plan is to remove today as long as patient is agreeable. Lungs CTA, weaned down to room air (94%). Encouraged coughing/deep breathing w/ pillow provided for splinting. Able to make needs known and calls appropriately. Call light and belongings within reach.
--- NOTE | 2019-06-28 13:43 | CM.DANOTE ---
Discharge Planning/Care Management DCP: assessment: case received, discussed in Team Rounds and EMR reviewed. Met now with pt and introduced self and role. DCP template/below is completed with information provided by pt today. Pt is an 83 year old female who admitted yesterday afternoon to care of hospitalist team. Dr. Yun today confirms that the case has now been transferred over to [facility]. PT was taken to surgery yesterday afternoon by Dr. Evangelista for exploratory laparotomy and small bowel resection. She is today on clears. PT is seeing pt. Payer: Medicare and [employer] [facility] [place] Admission status: INPT: confirmed by UR MIKO Segura. P: at this point pt anticipates going home with her supportive spouse once she is stable for same. PT may recommend a FWW at d/c. DCP team will be following as pt recovers and her needs closer to d/c become clearer. CM Discharge Assessment Start: 06/28/19 13:41 Freq: Status: Active Protocol: Document 06/28/19 13:41 ITV (Rec: 06/28/19 13:43 ITV [id number]) Discharge Planning Assessment Advance Directives? Yes History Provided By Patient,Medical Record Prior Living Arrangements House Household Members spouse Independent with ADL's Yes Is patient alert and oriented? Yes Comment uses no assistive device at baseline. Typically walks 3 miles a day with friends. Less so since the [employer] Covid directive. (about a mile now) Review Status In Process
[2019-06-28] MEDS: VIT C/E/ZN/COPPR/LUTEIN/ZEAXAN CAPSULE 1 CAP PO (15:05)
[2019-06-28] MEDS: PROCHLORPERAZINE 10 MG/2 ML VIAL 5 MG IV (20:56)
--- NOTE | 2019-06-28 23:46 | PC.NURSE ---
Evening Shift Goals for shift included tolerance of clear liquid diet, ambulation, and subsequent discontinuation of Hamilton catheter. However, patient quickly developed nausea and vomiting, which proved to be intractable throughout shift. When symptoms did not respond to ondansetron, I called Dr. Capellan and obtained orders for Compazine, and NPO except ice. Patient also experienced little to no relief with Compazine. Whereas bowels sounds had been active upon my initial assessment, they became hypoactive. Lisa, nursing home director, called OR and requested that Dr. Capellan call when he is done in surgery. Hamilton was not dc'd, as patient experienced relentless n/v and was exhausted.
[2019-06-29] VITALS (7 sets, daily range): BP systolic 136–170; BP diastolic 54–87; PULSE 93–103; RESP 16–18; TEMP 36.6–37.2; O2SAT 93–96
[2019-06-29] MEDS: ONDANSETRON 4 MG/2 ML INJ IV ×2 (00:14→05:54)
[2019-06-29] MEDS: METOCLOPRAMIDE 10 MG/2 ML INJ 5 MG IV ×4 (01:06→21:19)
[2019-06-29] MEDS: PROCHLORPERAZINE 10 MG/2 ML VIAL IV (04:03)
[2019-06-29] MEDS: SODIUM CHLORIDE 0.9% 1,000 ML 125 ML IV ×2 (04:48→21:55)
[2019-06-29 06:16] LABS: Add Manual Diff / Slide Review NO; Basophils Absolute Auto 0 /uL (0-100); Basophils Percent Auto 0.2 % (0-2); Eosinophils Absolute Auto 0 /uL (0-450); Eosinophils Percent Auto 0.1 % (2-4); Hematocrit 34.7 % (36-46); Hemoglobin 12.3 g/dL (12.0-16.0); Lymphocytes Absolute Auto 1400 /uL (1100-4500); Lymphocytes Percent Auto 12.7 % (25-40); Mean Corpuscular HGB Conc 35.5 % (30-36); Mean Corpuscular Hemoglobin 34.7 PG (26-34); Mean Corpuscular Volume 97.7 fL (80-100); Monocytes Absolute Auto 800 /uL (0-900); Monocytes Percent Auto 7.1 % (3-14); Neutrophils Absolute Auto 8600 /uL (1500-7000); Neutrophils Percent Auto 79.9 % (50-75); Platelet Count 204 X10^3/uL (150-400); Red Blood Cell Count 3.55 X10^6/uL (4.0-5.2); Red Cell Distribution Width 12.6 % (11.6-14.8); White Blood Cell Count 10.7 X10^3/uL (4.5-11.0)
[2019-06-29 06:23] LABS: BUN Creatinine Ratio 16.7 (6-22); Blood Urea Nitrogen 14 mg/dL (7-17); Calcium 7.8 mg/dL (8.4-10.2); Carbon Dioxide 26 mmol/L (22-32); Chloride 105 mmol/L (98-107); Estimated Glomerular Filt Rate > 60.0 mL/min (>60); Glucose 109 mg/dL (80-110); HEMOLYSIS < 15 (0-50); Potassium 3.1 mmol/L (3.4-5.1); Sodium 137 mmol/L (137-145)
--- NOTE | 2019-06-29 09:19 | P.PN_ITS ---
Subjective Subjective Date Patient Seen: 06/29/19 Time Patient Seen: 09:20 Interval history: Emesis yesterday. Mostly and dry heaves and nausea this morning. No flatus no bowel movement. Feels bloated and distended Exam Vital Signs (past 8 hours): - 06/29/19 04:03 06/29/19 05:09 Temperature 98.0 F Pulse Rate 101 H 96 H Respiratory Rate 18 Blood Pressure 141/69 H 136/54 L Pulse Oximetry 93 Oxygen Delivery Method Nasal Cannula Oxygen Flow Rate 0 Narrative Exam Narrative: General adult female alert oriented no acute distress Abdomen soft appropriately tender to palpation dressings removed incision clean dry intact with amadou distended ROSIE drain serosanguineous output Objective Labs Result Diagrams: 06/29/19 06:00 06/29/19 06:00 Labs: Laboratory Results - last 24 hr 06/29/19 06/29/19 06:00 06:00 WBC 10.7 RBC 3.55 L Hgb 12.3 Hct 34.7 L MCV 97.7 MCH 34.7 H MCHC 35.5 RDW 12.6 Plt Count 204 Neut % (Auto) 79.9 H Lymph % (Auto) 12.7 L [place] % (Auto) 7.1 Eos % (Auto) 0.1 L Baso % (Auto) 0.2 Neut # (Auto) 8600 H Lymph # (Auto) 1400 [place] # (Auto) 800 Eos # (Auto) 0 Baso # (Auto) 0 Sodium 137 Potassium 3.1 L Chloride 105 Carbon Dioxide 26 BUN 14 Creatinine 0.84 Estimated GFR > 60.0 BUN/Creatinine Ratio 16.7 Glucose 109 Calcium 7.8 L Magnesium 2.0 Assessment & Plan Post-op Postoperative Procedures: Procedures Operation Date: 06/27/19 18:00 Actual Procedures Side Surgeon p Laparoscopy, Diagnostic to open laparotomy with small bowel resection Panda Evangelista MD Postoperative status narrative: 83-year-old female postoperative day 2 status post exploratory laparotomy and small-bowel resection for necrotic segment of small bowel. She has a postoperative ileus. #Postoperative ileus -Await return of bowel function -NPO IV fluids -replace electrolytes -out of bed to chair -ambulate #VTE prophylaxis -SCDs and pLovenox
--- NOTE | 2019-06-29 10:57 | PC.NURSE ---
New IV started to R.wrist. Patient nauseous and had about 50cc of green bile emesis, given reglan and has seemed to help patient. aide just gave patient a bed bath in the chair and patient perked up and she is now lying in bed and talkin to her in bed. Dr. Evangelista in to see patient and has ordered some ivf with potassium. He states that she most likely has an illeus. she will remain npo now.
--- NOTE | 2019-06-29 11:07 | DI.RAD.S_ITS ---
PROCEDURE: XR ABDOMEN 1V INDICATIONS: nausea TECHNIQUE: One view of the abdomen acquired. COMPARISON: [facility], CT, CT CHEST ABD PEL W CON, 06/27/2019, 10:30. FINDINGS: Surgical changes and devices: Vertical skin amadou involving the midline lower abdomen compatible with likely laparotomy. Soft tissue drain projects in the midline lower abdomen and pelvis. Bowel: Multiple air-filled loops of small bowel and colon are visualized with mild dilatation of small bowel in the left mid and lower abdomen. Soft tissues: No suspicious abdominal calcifications. Visualized solid organ contours appear normal in size. Bones: No suspicious bony lesions. IMPRESSION: Multiple air-filled loops of mildly dilated small bowel in the left mid and lower abdomen with a few air filled loops of colon likely related to postoperative ileus. Recommend continued surveillance and followup imaging as needed. Dictated by: Shar Joshi M.D. on 06/29/2019 at 13:08 Approved by: Shar Joshi M.D. on 06/29/2019 at 13:16
[2019-06-29] MEDS: POTASSIUM CHLORIDE 80 MEQ in SODIUM CHLORIDE 0.9% 1,000 ML 130 ML IV (11:21)
--- NOTE | 2019-06-29 15:19 | PT.IPTN ---
Current Diagnoses Unspecified intestinal obstruction, unspecified as to partial versus complete obstruction (06/28/19) Surgery Performed Operation Date: 06/27/19 18:00 Actual Procedures p Laparoscopy, Diagnostic to open laparotomy with small bowel resection - Panda Evangelista MD Physical Therapy Treatment Note M2 PT-IP Current Condition Start: 06/28/19 12:12 Freq: NEEDED Status: Active Protocol: Document 06/28/19 10:29 AB (Rec: 06/28/19 12:23 AB [id number]) Physical Therapy Current Condition Current Condition Evaluation Date 06/28/19 Treatment Diagnosis mesenteric ishemia s/p ex lap; enterectomy; difficulty in walking Onset Date 06/27/19 Precautions Abdominal Surgery Precautions Log Roll,Lifting Restrictions, Gait Belt above Incisional Area M3 PT-IP Subjective Start: 06/28/19 12:12 Freq: NEEDED Status: Active Protocol: Document 06/29/19 14:26 LJ (Rec: 06/29/19 15:19 LJ [email or web address]) Subjective Physical Therapy Visit Type Type Treatment Note Visit Start Time 14:26 Visit Stop Time 14:46 Total Visit Minutes 20 Number of SOFTWARE DEVELOPMENT MANAGER Visits 1 Physical Therapy Visit Comments Patient Comments pt agreeable to do PT M4 PT-IP Mobility and Gait Start: 06/28/19 12:12 Freq: NEEDED Status: Active Protocol: Document 06/29/19 14:26 LJ (Rec: 06/29/19 15:19 LJ [email or web address]) PT-Bed Mobility Assessment Rolling Type of Rolling Log Rolling Level of Assist Standby Assistance Supine to Sit Supine to Sit Standby Assistance PT-Transfer Assessment Sit to and From Stand Sit to and from Stand Standby Assistance,Use of Upper Extremities Equipment Transfer Assistive Device Gait Belt,Front Wheeled Walker Orthotic/Prosthetic Devices or Brace: No Transfers Transfer Destination Chair Transfer Technique ambulated using FWW Transfer Ability Level of Assist Standby Assistance,1 Person Assistance,Use of Upper Extremities Comments Mobility Comments Pt resting in bed upon arrival . SBA for all bed mobility. Sat up in bed without hesitation and swung he legs off the side of bed. Cues given to slow down. She transferred to standing with very little use of UEs. [facility] and lifted foot rest independently Gait Assessment Gait Gait Assistance Required: Standby Assistance,Contact Guard Assist Distance (Feet) 250 Able to Maintain Weight Bearing Status Yes During Gait Assistive Devices Assistive Device None,Gait Belt,Front Wheeled Walker Orthotic/Prosthetic Devices or Brace: No Gait Deviations General Gait Pattern Decreased Stride Length, Decreased Feet Clearance Factors Limiting Gait Function Factors Limiting Gait Function Decreased Activity Tolerance, Decreased Strength,Pain,Poor Balance Comments Gait Comments Pt ambulated in hallway with FWW to stairs CGA to SBA with little reliance on FWW. Returned to room and ambulated in room without AD. Pt demonstrated less stability and confidence without walker but had no LOB. Stair Climbing Assessment Evaluation Level of Assist On Stairs Standby Assistance Devices Stair Climbing Assistive Devices Right Railing Technique/Endurance Stair Climbing Direction Ascend and Descend Stair Climbing Technique Step Over Step Number of Steps Climbed 3 Stair Climbing Set # Repetitions (reps) 2 M5 PT-IP Objective Assessments Start: 06/28/19 12:12 Freq: NEEDED Status: Active Protocol: Document 06/28/19 10:29 AB (Rec: 06/28/19 12:23 AB [id number]) Orientation Orientation/Cognition Level of Alertness Alert Orientation Name,Age,Place,Situation Language Function Ability No Deficits Noted Safety Awareness Understands Safety Issues Memory Description No Deficits Noted Gross Range of Motion Lower Extremity ROM Assessment Within Functional Limits Strength Lower Extremity Strength Assessment Within Functional Limits Coordination Assessment Gross Coordination Gross Coordination WNL Sensation Assessment Sensation Gross Sensation WNL Muscle Tone Muscle Tone WNL Yes M6 PT-IP Treatment Start: 06/28/19 12:12 Freq: NEEDED Status: Active Protocol: Document 06/29/19 14:26 LJ (Rec: 06/29/19 15:19 LJ [email or web address]) Physical Therapy Treatment Education Education Provided Precautions,Safety M7 PT-IP Assessment and Plan Start: 06/28/19 12:12 Freq: NEEDED Status: Active Protocol: Document 06/29/19 14:26 LJ (Rec: 06/29/19 15:19 LJ [email or web address]) PT Summary Assessment and Plan Potential Rehabilitation Potential Good Status of Condition at Evaluation Stable Summary Impairments Pain,ROM,Strength,Balance,Bed Mobility,Transfers,Gait, Activity Tolerance Assessment Summary pt requiring SBA for bed mobility and gait with FWW. Will require additional practise without AD before she is stable enough to walk without FWW. will assist pt at home. May require HH. Pt has met goals for PT and is safe to DC home when medically stable. May require FWW prior to DC home. Goals Bed Mobility Goal Independent Transfer Goal Independent,Front Wheeled Walker Gait Goal Independent,Front Wheel Walker Gait Distance 100 Days to Meet Goals 5 Frequency of Treatment Frequency Of Treatment Once a Day Treatment Plan Physical Therapy Treatment Plan Bed Mobility Training,Transfer Training,Gait Training, Therapeutic Exercise,Balance Retraining,Post Op Education, Discharge Planning,Hot or Cold Pack,Neuromuscular Re-ed, Coordination Retraining,Manual Therapy Recommendations To Nursing Amount of Assist Needed 1 Person Assist Discharge Recommendations PT Discharge Recommendations Home with Assistance,Home Health,Outpatient PT Equipment Needed for Home Before FWW if not safe without AD Discharge Transportation Needs at Discharge Private Vehicle
[2019-06-29] MEDS: AMLODIPINE 2.5 MG TABLET PO (21:19)
[2019-06-29] MEDS: SODIUM CHLORIDE 0.9% FLUSH 10 ML IV (21:55)
[2019-06-30] MEDS: METOCLOPRAMIDE 10 MG/2 ML INJ 5 MG IV (03:37)
[2019-06-30 04:41] VITALS: BP 162/86; PULSE 98; RESP 16; TEMP 36.8; O2SAT 92
[2019-06-30] MEDS: PANTOPRAZOLE 20 MG TABLET PO (05:44)
[2019-06-30] MEDS: SODIUM CHLORIDE 0.9% 1,000 ML 125 ML IV (05:57)
[2019-06-30 06:21] LABS: Add Manual Diff / Slide Review NO; Basophils Absolute Auto 0 /uL (0-100); Basophils Percent Auto 0.4 % (0-2); Eosinophils Absolute Auto 0 /uL (0-450); Hematocrit 32.9 % (36-46); Hemoglobin 11.3 g/dL (12.0-16.0); Lymphocytes Absolute Auto 1000 /uL (1100-4500); Lymphocytes Percent Auto 10.3 % (25-40); Mean Corpuscular HGB Conc 34.4 % (30-36); Mean Corpuscular Hemoglobin 33.5 PG (26-34); Mean Corpuscular Volume 97.4 fL (80-100); Monocytes Absolute Auto 600 /uL (0-900); Monocytes Percent Auto 5.9 % (3-14); Neutrophils Absolute Auto 8300 /uL (1500-7000); Neutrophils Percent Auto 83.4 % (50-75); Platelet Count 207 X10^3/uL (150-400); Red Blood Cell Count 3.38 X10^6/uL (4.0-5.2); Red Cell Distribution Width 12.5 % (11.6-14.8); White Blood Cell Count 9.9 X10^3/uL (4.5-11.0)
[2019-06-30 06:37] LABS: BUN Creatinine Ratio 18.9 (6-22); Blood Urea Nitrogen 14 mg/dL (7-17); Calcium 7.8 mg/dL (8.4-10.2); Carbon Dioxide 24 mmol/L (22-32); Chloride 107 mmol/L (98-107); Estimated Glomerular Filt Rate > 60.0 mL/min (>60); Glucose 86 mg/dL (80-110); HEMOLYSIS < 15 (0-50); Magnesium 2.1 mg/dL (1.6-2.3); Potassium 3.5 mmol/L (3.4-5.1); Sodium 138 mmol/L (137-145)
[2019-06-30 07:34] VITALS: BP 160/86; PULSE 99; RESP 16; TEMP 37.2; O2SAT 95
--- NOTE | 2019-06-30 08:18 | P.PN_ITS ---
Subjective Subjective Date Patient Seen: 06/30/19 Time Patient Seen: 08:18 Interval history: Passing flatus and bowel movement last night. Tolerated some clear liquids but had and small volume emesis overnight. This morning is without nausea feels less bloated and distended than she did yesterday pain significantly improved. Has been ambulating. Exam Vital Signs (past 8 hours): - 06/30/19 04:41 Temperature 98.2 F Pulse Rate 98 H Respiratory Rate 16 Blood Pressure 162/86 H Pulse Oximetry 92 Oxygen Delivery Method Room Air Oxygen Flow Rate 0 Narrative Exam Narrative: General adult female alert oriented No acute distress Chest nonlabored respiration Abdomen soft nondistended incision clean dry intact Objective Labs Result Diagrams: 06/30/19 06:00 06/30/19 06:00 Labs: Laboratory Results - last 24 hr 06/30/19 06/30/19 06:00 06:00 WBC 9.9 RBC 3.38 L Hgb 11.3 L Hct 32.9 L MCV 97.4 MCH 33.5 MCHC 34.4 RDW 12.5 Plt Count 207 Neut % (Auto) 83.4 H Lymph % (Auto) 10.3 L [place] % (Auto) 5.9 Eos % (Auto) 0.0 L Baso % (Auto) 0.4 Neut # (Auto) 8300 H Lymph # (Auto) 1000 L [place] # (Auto) 600 Eos # (Auto) 0 Baso # (Auto) 0 Sodium 138 Potassium 3.5 Chloride 107 Carbon Dioxide 24 BUN 14 Creatinine 0.74 Estimated GFR > 60.0 BUN/Creatinine Ratio 18.9 Glucose 86 Calcium 7.8 L Magnesium 2.1 Assessment & Plan Post-op Postoperative Procedures: Procedures Operation Date: 06/27/19 18:00 Actual Procedures Side Surgeon p Laparoscopy, Diagnostic to open laparotomy with small bowel resection Panda Evangelista MD Postoperative plan narrative: 83-year-old female postoperative day 3 status post exploratory laparotomy small bowel resection for necrotic segment of small bowel and doing well. Her postoperative ileus is gradually resolving. -continue clear liquid diet for today will likely advance to regular tomorrow -decrease IV fluids to 75 mL/hr -remove Hamilton catheter -out of bed to chair and ambulate -SCDs and Lovenox -continue home amoxicillin for dental abscess
[2019-06-30] MEDS: lisinopriL 20 MG TABLET PO (08:48)
[2019-06-30] MEDS: ENOXAPARIN 40 MG/0.4 ML SYRINGE SUBCUT (08:49)
[2019-06-30] MEDS: ASPIRIN EC 81 MG TABLET PO (08:49)
[2019-06-30] MEDS: hydroCHLOROthiazide 12.5 MG CAPSULE PO (08:53)
[2019-06-30] MEDS: POTASSIUM CHLORIDE 40 MEQ in SODIUM CHLORIDE 0.9% 500 ML 130 ML IV (09:34)
--- NOTE | 2019-06-30 10:38 | PT.IPTN ---
Current Diagnoses Unspecified intestinal obstruction, unspecified as to partial versus complete obstruction (06/28/19) Surgery Performed Operation Date: 06/27/19 18:00 Actual Procedures p Laparoscopy, Diagnostic to open laparotomy with small bowel resection - Panda Evangelista MD Physical Therapy Treatment Note M2 PT-IP Current Condition Start: 06/28/19 12:12 Freq: NEEDED Status: Active Protocol: Document 06/28/19 10:29 AB (Rec: 06/28/19 12:23 AB [id number]) Physical Therapy Current Condition Current Condition Evaluation Date 06/28/19 Treatment Diagnosis mesenteric ishemia s/p ex lap; enterectomy; difficulty in walking Onset Date 06/27/19 Precautions Abdominal Surgery Precautions Log Roll,Lifting Restrictions, Gait Belt above Incisional Area M3 PT-IP Subjective Start: 06/28/19 12:12 Freq: NEEDED Status: Active Protocol: Document 06/30/19 09:05 LJ (Rec: 06/30/19 10:38 LJ [email or web address]) Subjective Physical Therapy Visit Type Type Treatment Note Visit Start Time 09:05 Visit Stop Time 09:23 Total Visit Minutes 18 Number of ENGINEERING DIRECTOR Visits 1 Physical Therapy Visit Comments Patient Comments Pt reports vomitting earlier this am. Still wanting to attempt walking in hallway with emisis bag Therapy Pain Assessment Pain When Pain Assessed At Rest Pain Present Pain Present Denied Pain M4 PT-IP Mobility and Gait Start: 06/28/19 12:12 Freq: NEEDED Status: Active Protocol: Document 06/30/19 09:05 LJ (Rec: 06/30/19 10:38 LJ [email or web address]) PT-Transfer Assessment Sit to and From Stand Sit to and from Stand Standby Assistance,Use of Upper Extremities Equipment Transfer Assistive Device Gait Belt,Front Wheeled Walker Orthotic/Prosthetic Devices or Brace: No Transfers Transfer Destination Chair Transfer Technique ambulated using FWW Transfer Ability Level of Assist Standby Assistance,1 Person Assistance,Use of Upper Extremities Comments Mobility Comments Pt seated in chair upon arrival. SBA for transfers and mobility. Prefers to use FWW at this time due to feeling weak from vomiting. Gait Assessment Gait Gait Assistance Required: Standby Assistance,Contact Guard Assist Distance (Feet) 400 Able to Maintain Weight Bearing Status Yes During Gait Assistive Devices Assistive Device Gait Belt,Front Wheeled Walker Orthotic/Prosthetic Devices or Brace: No Gait Deviations General Gait Pattern Decreased Stride Length, Decreased Feet Clearance Factors Limiting Gait Function Factors Limiting Gait Function Decreased Activity Tolerance, Decreased Strength,Pain,Poor Balance Comments Gait Comments Pt increased ambulation distance today but requested to use FWW for ambulation and carried emisis bag. M5 PT-IP Objective Assessments Start: 06/28/19 12:12 Freq: NEEDED Status: Active Protocol: Document 06/28/19 10:29 AB (Rec: 06/28/19 12:23 AB [id number]) Orientation Orientation/Cognition Level of Alertness Alert Orientation Name,Age,Place,Situation Language Function Ability No Deficits Noted Safety Awareness Understands Safety Issues Memory Description No Deficits Noted Gross Range of Motion Lower Extremity ROM Assessment Within Functional Limits Strength Lower Extremity Strength Assessment Within Functional Limits Coordination Assessment Gross Coordination Gross Coordination WNL Sensation Assessment Sensation Gross Sensation WNL Muscle Tone Muscle Tone WNL Yes M6 PT-IP Treatment Start: 06/28/19 12:12 Freq: NEEDED Status: Active Protocol: Document 06/30/19 09:05 LJ (Rec: 06/30/19 10:38 LJ [email or web address]) Physical Therapy Treatment Education Education Provided Precautions,Safety M7 PT-IP Assessment and Plan Start: 06/28/19 12:12 Freq: NEEDED Status: Active Protocol: Document 06/30/19 09:05 LJ (Rec: 06/30/19 10:38 LJ [email or web address]) PT Summary Assessment and Plan Potential Rehabilitation Potential Good Status of Condition at Evaluation Stable Summary Impairments Pain,ROM,Strength,Balance,Gait ,Activity Tolerance Assessment Summary Pt feeling slightly nauseated this morning. Was vomitting earlier but states she is better now and wants to go for a walk. She requested to use a FWW due to feeling unsteady after bouts of nausea. Pts gait is improving with FWW and may require FWW prior to DC Goals Bed Mobility Goal Independent Transfer Goal Independent,Front Wheeled Walker Gait Goal Independent,Front Wheel Walker Gait Distance 100 Days to Meet Goals 5 Frequency of Treatment Frequency Of Treatment Once a Day Treatment Plan Physical Therapy Treatment Plan Bed Mobility Training,Transfer Training,Gait Training, Therapeutic Exercise,Balance Retraining,Post Op Education, Discharge Planning,Hot or Cold Pack,Neuromuscular Re-ed, Coordination Retraining,Manual Therapy Recommendations To Nursing Amount of Assist Needed Standby Assistance Discharge Recommendations PT Discharge Recommendations Home with Assistance, Outpatient PT Equipment Needed for Home Before FWW Discharge Transportation Needs at Discharge Private Vehicle
[2019-06-30 12:05] VITALS: BP 153/54; PULSE 87; RESP 16; TEMP 36.8; O2SAT 97
--- NOTE | 2019-06-30 14:40 | PC.NURSE ---
shift summary: Patient axox3, pleasant and cooperative. Maintaining clear liquid diet, had episode of emesis this morning after waking but declined nausea, states her stomach feels better after throwing up. Emesis was greenish bile. Abdomen remains soft, slightly rounded and puffy, but patient states it is much softer than yesterday and less bloated. Endorses burping and passing gas. Hamilton was discontinued per order, and able to void in tiolet with SB assistance. Patient was up to chair and also worked with PT, tolerating well. Denies pain. Drain remains intact and draining moderate serosangenous fluids. Patient was able to nap this after noon, call light within reach, patient calls for assistance appropriatly.
[2019-06-30 15:35] VITALS: BP 151/73; PULSE 88; RESP 17; TEMP 36.5; O2SAT 97
[2019-06-30] MEDS: ACETAMINOPHEN 325 MG TABLET 650 MG PO (17:49)
[2019-06-30 19:50] VITALS: BP 155/73; PULSE 95; RESP 95; TEMP 36.8; O2SAT 97
[2019-06-30] MEDS: ROSUVASTATIN 10 MG TABLET 20 MG PO (20:35)
[2019-06-30] MEDS: AMLODIPINE 2.5 MG TABLET PO (20:35)
[2019-06-30] MEDS: AMOXICILLIN 250 MG CAPSULE 500 MG PO (20:35)
[2019-06-30] MEDS: estradioL 1 MG TABLET PO (20:35)
[2019-06-30] MEDS: LORATADINE 10 MG TABLET PO (20:36)
[2019-06-30] MEDS: SODIUM CHLORIDE 0.9% 1,000 ML 75 ML IV (20:39)
[2019-06-30 23:35] VITALS: BP 157/78; PULSE 89; RESP 18; TEMP 37.2; O2SAT 96
--- NOTE | 2019-06-30 23:42 | PC.NURSE ---
pt tolerated clear liquid diet. no bm. passing gas. jordi drain had serosang fluid. incision cdi, videotape sales representative.
[2019-07-01] VITALS (8 sets, daily range): BP systolic 146–156; BP diastolic 65–76; PULSE 81–99; RESP 16–18; TEMP 36.2–37.2; O2SAT 95–98
[2019-07-01] MEDS: PANTOPRAZOLE 20 MG TABLET PO (05:24)
[2019-07-01 06:09] LABS: BUN Creatinine Ratio 16.9 (6-22); Blood Urea Nitrogen 11 mg/dL (7-17); Calcium 7.8 mg/dL (8.4-10.2); Carbon Dioxide 23 mmol/L (22-32); Chloride 104 mmol/L (98-107); Estimated Glomerular Filt Rate > 60.0 mL/min (>60); Glucose 96 mg/dL (80-110); HEMOLYSIS < 15 (0-50); Magnesium 1.9 mg/dL (1.6-2.3); Potassium 3.2 mmol/L (3.4-5.1); Sodium 134 mmol/L (137-145)
[2019-07-01] MEDS: POTASSIUM CHLORIDE 20 MEQ TAB 40 MEQ PO (07:46)
[2019-07-01] MEDS: MAGNESIUM SULFATE 2 GM/50 ML PIGGYBACK IV (07:46)
--- NOTE | 2019-07-01 07:52 | PM.PN.1 ---
Subjective Subjective Date Patient Seen: 07/01/19 Time Patient Seen: 08:30 Interval history: No acute events overnight. The patient is passing gas and loose stool. She denies nausea or vomiting. She is tolerating clear liquid diet. Exam Vital Signs (past 8 hours): - 07/01/19 03:52 Temperature 98.9 F Pulse Rate 81 Respiratory Rate 18 Blood Pressure 147/76 H Pulse Oximetry 97 Oxygen Delivery Method Room Air Oxygen Flow Rate 0 Narrative Exam Narrative: General: adult female alert oriented No acute distress Chest: nonlabored respiration Abdomen soft nondistended incision clean dry intact, ROSIE drain serosanguineous Objective Labs Result Diagrams: 06/30/19 06:00 07/01/19 05:30 Labs: Laboratory Results - last 24 hr 07/01/19 05:30 Sodium 134 L Potassium 3.2 L Chloride 104 Carbon Dioxide 23 BUN 11 Creatinine 0.65 Estimated GFR > 60.0 BUN/Creatinine Ratio 16.9 Glucose 96 Calcium 7.8 L Magnesium 1.9 Assessment & Plan Assessment & Plan narrative: This is an 83-year-old woman who is postop day 4 status post small bowel resection. She is tolerating clear liquids, and passing lots of liquid stool. She is ambulating. It seems her pain is relatively well controlled. Her ROSIE drain output is decreasing. Today we will advance her diet to full liquids, at a probiotic, and have her continue ambulating. If she tolerates that we will advance her to regular food, and consider disposition pending on her GI function and her ability to manage on her own at home. Time Spent With Patient Time with patient: 25 - 35 minutes Quality VTE Deep Vein Thrombosis/Pulmonary Embolism Present on Admission: No
[2019-07-01] MEDS: lisinopriL 20 MG TABLET PO (08:41)
[2019-07-01] MEDS: ASPIRIN EC 81 MG TABLET PO (08:43)
[2019-07-01] MEDS: ENOXAPARIN 40 MG/0.4 ML SYRINGE SUBCUT (08:51)
[2019-07-01] MEDS: ACYCLOVIR 400 MG TABLET 800 MG PO (08:52)
[2019-07-01] MEDS: VIT C/E/ZN/COPPR/LUTEIN/ZEAXAN CAPSULE 1 CAP PO (08:53)
[2019-07-01] MEDS: hydroCHLOROthiazide 12.5 MG CAPSULE PO (09:01)
--- NOTE | 2019-07-01 11:51 | PT-IP ANOTE ---
Pt refused treatment reporting she is exhausted d/t being up all night with diarrhea so she has been getting up/down to commode a lot. Asked for PT to check back in PM.
--- NOTE | 2019-07-01 12:45 | PC.NURSE ---
Day shift note: Awake, alert, and pleasant. Up OOB to BSC and BR with SBA. Tolerating Full liquid diet. x 3 watery stools this early shift, Dr. Nugent aware, new order for Probiotic. Calls appropriately for staff assist.
--- NOTE | 2019-07-01 14:01 | CM.DPC ---
Met with patient to review discharge plan. Patient was alert and cheerful. Initial discharge plan still seems appropriate and meets patients wishes: Home with FWW (will need us to provide). Patient does not wish SNF. Patient does not want any HH - or feel she has need. Has an attentive and lots of friends family nearby in case she has any needs. Feels her house is manageable. Reports the only thing she really needs is the elevated toilet seat that she currently has in her main bathroom. Instructed patient to reach out to CM team if anything changes in her needs or wishes for safely to return home. Pt. verbalized understanding.
[2019-07-01 14:53] LABS: BUN Creatinine Ratio 12.3 (6-22); Blood Urea Nitrogen 8 mg/dL (7-17); Calcium 8.2 mg/dL (8.4-10.2); Carbon Dioxide 24 mmol/L (22-32); Chloride 104 mmol/L (98-107); Estimated Glomerular Filt Rate > 60.0 mL/min (>60); Glucose 117 mg/dL (80-110); HEMOLYSIS < 15 (0-50); Potassium 3.6 mmol/L (3.4-5.1); Sodium 134 mmol/L (137-145)
--- NOTE | 2019-07-01 16:32 | PT.IPTN ---
Current Diagnoses Unspecified intestinal obstruction, unspecified as to partial versus complete obstruction (06/28/19) Surgery Performed Operation Date: 06/27/19 18:00 Actual Procedures p Laparoscopy, Diagnostic to open laparotomy with small bowel resection - Panda Evangelista MD Physical Therapy Treatment Note M2 PT-IP Current Condition Start: 06/28/19 12:12 Freq: NEEDED Status: Active Protocol: Document 06/28/19 10:29 AB (Rec: 06/28/19 12:23 AB [id number]) Physical Therapy Current Condition Current Condition Evaluation Date 06/28/19 Treatment Diagnosis mesenteric ishemia s/p ex lap; enterectomy; difficulty in walking Onset Date 06/27/19 Precautions Abdominal Surgery Precautions Log Roll,Lifting Restrictions, Gait Belt above Incisional Area M3 PT-IP Subjective Start: 06/28/19 12:12 Freq: NEEDED Status: Active Protocol: Document 07/01/19 16:20 SP (Rec: 07/01/19 16:52 SP [id number]) Subjective Physical Therapy Visit Type Type Treatment Note Visit Start Time 16:20 Visit Stop Time 16:32 Total Visit Minutes 12 Number of SELLING MANAGER Visits 3 Physical Therapy Visit Comments Patient Comments Pt willing to work with PT. Therapy Pain Assessment Pain When Pain Assessed During Mobility Pain Present Pain Present Pain Reported Location Head Intensity 3 Scale Used R calf post ambulation Description Cramping Pain Behaviors Facial Grimacing Pain Management Techniques Re-positioning M4 PT-IP Mobility and Gait Start: 06/28/19 12:12 Freq: NEEDED Status: Active Protocol: Document 07/01/19 16:20 SP (Rec: 07/01/19 16:52 SP [id number]) PT-Bed Mobility Assessment Rolling Type of Rolling Log Rolling,Bilateral Level of Assist Standby Assistance Supine to Sit Supine to Sit Standby Assistance,Bedrails Sit to Supine Sit to Supine Independent Scooting Scooting to Edge of Bed Independent PT-Transfer Assessment Sit to and From Stand Sit to and from Stand Standby Assistance,Use of Upper Extremities Equipment Transfer Assistive Device None,Gait Belt Orthotic/Prosthetic Devices or Brace: No Transfers Transfer Technique ambulated with no AD Transfer Ability Level of Assist Contact Guard Assistance,Use of Upper Extremities Comments Mobility Comments Pt was laying flat in bed when arrived. Completed log roll to R and complete R sidelying to sitting with EOB flat using bed rail for support. Sit to stand CGA with no AD, no LOB or deviations,stable. Pt was able to walk to stairs and back approx 225 ft no AD CGA- 10% A for balance deviating to R and L initially once in hallway during gait, with cuing for slower pacing and centering herself in hallway with obstacle mgt of nursing carts improved as distance progressed. Gait Assessment Gait Gait Assistance Required: Contact Guard Assist Distance (Feet) 225 Able to Maintain Weight Bearing Status Yes During Gait Assistive Devices Assistive Device None,Gait Belt Orthotic/Prosthetic Devices or Brace: No Gait Deviations General Gait Pattern Antalgic,Lateral Trunk Lean Factors Limiting Gait Function Factors Limiting Gait Function Decreased Activity Tolerance, Decreased Strength,Pain,Poor Balance Comments Gait Comments Assessed gait with no AD this treatment to work toward PLOF. Pt required CGA- 15%A through gait belt for safety. see mobility comments. Stair Climbing Assessment Evaluation Level of Assist On Stairs Standby Assistance Devices Stair Climbing Assistive Devices Left Railing Technique/Endurance Stair Climbing Direction Ascend and Descend Stair Climbing Technique Step Over Step Number of Steps Climbed 3 Stair Climbing Set # Repetitions (reps) 3 Comments Stair Climbing Comments Pt was able to complete 9 stairs usign L HR ascending, SBA with cuing for slower pacing for safety and decrease risk for getting dizzy during turns with improvement in response. Stable PT-Balance Assessment Sitting Balance and Reactions Static Sitting Balance Ability Good Dynamic Sitting Balance Ability Good Standing Balance and Reactions Static Standing Balance Ability Good Dynamic Standing Balance Ability Fair Device Used no AD M5 PT-IP Objective Assessments Start: 06/28/19 12:12 Freq: NEEDED Status: Active Protocol: Document 06/28/19 10:29 AB (Rec: 06/28/19 12:23 AB [id number]) Orientation Orientation/Cognition Level of Alertness Alert Orientation Name,Age,Place,Situation Language Function Ability No Deficits Noted Safety Awareness Understands Safety Issues Memory Description No Deficits Noted Gross Range of Motion Lower Extremity ROM Assessment Within Functional Limits Strength Lower Extremity Strength Assessment Within Functional Limits Coordination Assessment Gross Coordination Gross Coordination WNL Sensation Assessment Sensation Gross Sensation WNL Muscle Tone Muscle Tone WNL Yes M6 PT-IP Treatment Start: 06/28/19 12:12 Freq: NEEDED Status: Active Protocol: Document 07/01/19 16:20 SP (Rec: 07/01/19 16:52 SP [id number]) Physical Therapy Treatment Education Education Provided Precautions,Safety M7 PT-IP Assessment and Plan Start: 06/28/19 12:12 Freq: NEEDED Status: Active Protocol: Document 07/01/19 16:20 SP (Rec: 07/01/19 16:52 SP [id number]) PT Summary Assessment and Plan Potential Rehabilitation Potential Good Status of Condition at Evaluation Stable Summary Impairments Pain,ROM,Strength,Balance,Gait ,Activity Tolerance Assessment Summary Pt stated felt little dizzy during gait but improved post cues for slower pacing and proper slow breathing, see mobilit comments. Pts gait is improving with FWW, assessed no AD this session, required CGA to 15% A for wt shift deviations as needed , may require FWW prior to DC. Goals Bed Mobility Goal Independent Transfer Goal Independent,Front Wheeled Walker Gait Goal Independent,Front Wheel Walker Gait Distance 100 Days to Meet Goals 5 Frequency of Treatment Frequency Of Treatment Once a Day Treatment Plan Physical Therapy Treatment Plan Bed Mobility Training,Transfer Training,Gait Training, Therapeutic Exercise,Balance Retraining,Post Op Education, Discharge Planning,Hot or Cold Pack,Neuromuscular Re-ed, Coordination Retraining,Manual Therapy Other Recommendations and Next Treatment Gait with no AD, FWW if Focus unstable further distance, balance activities. Recommendations To Nursing Amount of Assist Needed Independent Discharge Recommendations PT Discharge Recommendations Home with Assistance, Outpatient PT Equipment Needed for Home Before FWW if not safe without AD Discharge Transportation Needs at Discharge Private Vehicle
[2019-07-01] MEDS: LACTOBACILLUS ACIDOPHILUS TABLET 1 EACH PO (18:08)
[2019-07-01] MEDS: estradioL 1 MG TABLET PO (20:36)
[2019-07-01] MEDS: ROSUVASTATIN 10 MG TABLET 20 MG PO (20:36)
[2019-07-01] MEDS: AMLODIPINE 2.5 MG TABLET PO (20:37)
[2019-07-01] MEDS: AMOXICILLIN 250 MG CAPSULE 500 MG PO (20:37)
[2019-07-01] MEDS: LORATADINE 10 MG TABLET PO (20:39)
[2019-07-01] MEDS: SODIUM CHLORIDE 0.9% FLUSH 10 ML IV (20:41)
[2019-07-01] MEDS: ACETAMINOPHEN 325 MG TABLET 650 MG PO (23:45)
[2019-07-02 04:40] VITALS: BP 138/61; PULSE 85; RESP 16; TEMP 36.6; O2SAT 97
[2019-07-02] MEDS: PANTOPRAZOLE 20 MG TABLET PO (05:47)
[2019-07-02 08:00] VITALS: BP 139/82; PULSE 107; RESP 16; TEMP 36.4; O2SAT 98
--- NOTE | 2019-07-02 08:46 | PM.PN.1 ---
Subjective Subjective Date Patient Seen: 07/02/19 Time Patient Seen: 11:13 Interval history: No acute events overnight. Pt continues to have loose stool. Denies nausea, vomiting. She is tolerating a diet, and ambulating well with FWW. Exam Vital Signs (past 8 hours): - 07/02/19 04:40 07/02/19 08:00 Temperature 97.8 F 97.6 F Pulse Rate 85 107 H Respiratory Rate 16 16 Blood Pressure 138/61 139/82 Pulse Oximetry 97 98 Oxygen Delivery Method Room Air Oxygen Flow Rate 0 Narrative Exam Narrative: General: adult female alert oriented No acute distress, smiling, appears well Chest: nonlabored respiration Abdomen soft nondistended incision clean dry intact, ROSIE drain serosanguineous Objective Labs Result Diagrams: 06/30/19 06:00 07/02/19 08:33 Labs: Laboratory Results - last 24 hr 07/01/19 14:21 Sodium 134 L Potassium 3.6 Chloride 104 Carbon Dioxide 24 BUN 8 Creatinine 0.65 Estimated GFR > 60.0 BUN/Creatinine Ratio 12.3 Glucose 117 H Calcium 8.2 L Assessment & Plan Assessment & Plan narrative: This is an 83-year-old woman who is postop day 5 status post small bowel resection. She is tolerating a regular diet and passing liquid stool. She is ambulating with a FWW, and PT has recommended home with family assistance and walker as needed. Her pain is relatively well controlled. Her ROSIE drain output is decreasing. Plan: Regular diet Dispo planning Time Spent With Patient Time with patient: 25 - 35 minutes Quality VTE Deep Vein Thrombosis/Pulmonary Embolism Present on Admission: No
[2019-07-02 08:52] LABS: BUN Creatinine Ratio 8.6 (6-22); Blood Urea Nitrogen 6 mg/dL (7-17); Calcium 8.6 mg/dL (8.4-10.2); Carbon Dioxide 27 mmol/L (22-32); Chloride 101 mmol/L (98-107); Estimated Glomerular Filt Rate > 60.0 mL/min (>60); Glucose 111 mg/dL (80-110); HEMOLYSIS < 15 (0-50); Magnesium 1.8 mg/dL (1.6-2.3); Potassium 3.2 mmol/L (3.4-5.1); Sodium 135 mmol/L (137-145)
[2019-07-02] MEDS: ACYCLOVIR 400 MG TABLET 800 MG PO (09:29)
[2019-07-02] MEDS: MAGNESIUM SULFATE 2 GM/50 ML PIGGYBACK IV (09:29)
[2019-07-02] MEDS: lisinopriL 20 MG TABLET PO (09:29)
[2019-07-02] MEDS: VIT C/E/ZN/COPPR/LUTEIN/ZEAXAN CAPSULE 1 CAP PO (09:29)
[2019-07-02] MEDS: ASPIRIN EC 81 MG TABLET PO (09:29)
[2019-07-02] MEDS: ENOXAPARIN 40 MG/0.4 ML SYRINGE SUBCUT (09:30)
[2019-07-02] MEDS: LACTOBACILLUS ACIDOPHILUS TABLET 1 EACH PO ×2 (09:36→16:20)
[2019-07-02] MEDS: SODIUM CHLORIDE 0.9% FLUSH 10 ML IV ×2 (09:36→21:20)
[2019-07-02] MEDS: hydroCHLOROthiazide 12.5 MG CAPSULE PO (09:37)
[2019-07-02 12:00] VITALS: BP 147/64; PULSE 86; RESP 16; TEMP 36.6; O2SAT 96
--- NOTE | 2019-07-02 13:32 | PC.NURSE ---
Patients ml incision open to air, amadou in tact and well approximated. She is getting up to the bathroom independently and steady on her feet. Patients jordi drain putting out a fair amount of ss drainage. She denies pain. Given magnesium IV and patient tolerated this well. She is resting comfortably and has been having bowel movements that are loose. She will most likely go home tomorrow.
--- NOTE | 2019-07-02 14:40 | PT.IPTN ---
Current Diagnoses Unspecified intestinal obstruction, unspecified as to partial versus complete obstruction (06/28/19) Surgery Performed Operation Date: 06/27/19 18:00 Actual Procedures p Laparoscopy, Diagnostic to open laparotomy with small bowel resection - Panda Evangelista MD Physical Therapy Treatment Note M2 PT-IP Current Condition Start: 06/28/19 12:12 Freq: NEEDED Status: Active Protocol: Document 06/28/19 10:29 AB (Rec: 06/28/19 12:23 AB [id number]) Physical Therapy Current Condition Current Condition Evaluation Date 06/28/19 Treatment Diagnosis mesenteric ishemia s/p ex lap; enterectomy; difficulty in walking Onset Date 06/27/19 Precautions Abdominal Surgery Precautions Log Roll,Lifting Restrictions, Gait Belt above Incisional Area M3 PT-IP Subjective Start: 06/28/19 12:12 Freq: NEEDED Status: Active Protocol: Document 07/02/19 14:05 SP (Rec: 07/02/19 17:43 SP [id number]) Subjective Physical Therapy Visit Type Type Treatment Note Visit Start Time 14:05 Visit Stop Time 14:40 Total Visit Minutes 35 Number of ELECTRIC PLATER Visits 4 Physical Therapy Visit Comments Patient Comments Pt willing to work with therapy. Therapy Pain Assessment Pain Present Pain Present Denied Pain M4 PT-IP Mobility and Gait Start: 06/28/19 12:12 Freq: NEEDED Status: Active Protocol: Document 07/02/19 14:05 SP (Rec: 07/02/19 17:43 SP [id number]) PT-Bed Mobility Assessment Rolling Type of Rolling Log Rolling,Bilateral Level of Assist Independent Supine to Sit Supine to Sit Independent Sit to Supine Sit to Supine Independent Scooting Scooting to Edge of Bed Independent PT-Transfer Assessment Sit to and From Stand Sit to and from Stand Standby Assistance Equipment Transfer Assistive Device None,Gait Belt Orthotic/Prosthetic Devices or Brace: No Transfers Transfer Destination Chair Transfer Technique ambulated with no AD Transfer Ability Level of Assist Contact Guard Assistance Comments Mobility Comments PT declined initally when arrived in am, stating was tired after alot bathroom usage with aides in am but to return later in afternoon. Pt was laying in bed when arrived for PM treatment, no bed alarm armed, patient stated has been going to the bathroom by herself and didn't need the walker anymore. Pt completed log roll to R and transition to sitting I without rails, stable sitting at EOB. Sit to stand SBA, stable. Pt agreed to ther ex/ balance activities pre mobility in gait. PT completed NBOS feet together EO/ EC 10 sec each little sway but self recover EC, contact bed required BLE into tandem stance able to hold eyes forward 6 sec then contact bed for self recovery initially then progressed to 10 sec and able to complete slow head turns R and L x2 each direction each foot positioning (CGA provided). Pt ambulated in hallway approx 330 ft no AD CGA with noted wt shift deviations but not needing to contact painting as did yesterday. ELECTRIC PLATER assessed dynamic gait balance: head turns, looking up on straight away with noted wt shift deviations but self recovery to R and left durign head turns but had to stop to look up at ceiling, stable. Pt able to walk and quick turn with no LOB, carioca R and L as though dancing with no deviations or LOB, provided CGA. Pt did at times on straight away vier off to R but no LOB, CGA. Pt layed down in bed when returned back to room I mobility sit to supine. ELECTRIC PLATER stated that she is still little off balance durign gait and recommends that has SBA durign out of bed mobility, during discussion patient stated I need to go to the bathroom quickly, I think I am having a loose BM and am not sure going to make it. ELECTRIC PLATER provided SBA (gait belt donned) R side of bed to bathroom and patient had no LOB but unable to make it to the toilet, loose BM in brief. Pt was able to complete hygiene herself in sitting/ standing at grab bar when complete on toilet, ELECTRIC PLATER provided all needs for task, notified nursing after session . Pt walked to sink to wash hands and just when completed drying her hands she stated I need to lay down, I feel dizzy and demonstrated furntiure walking around end of bed to R side, provided CGA bathroom to sink to bed. ELECTRIC PLATER assessed vitals in supine: BP 147/67 but it didn't get reading for 10 sec, HR 98 bpm, 95% O2 saturation on RA. ELECTRIC PLATER further discussed importance of SBA-CGA at this time during gait with no AD for safety. Next tx assess vitals pre and with activity. Pt was laying down in bed with bed alarm armed and all needs and call light in reach. Gait Assessment Gait Gait Assistance Required: Contact Guard Assist Distance (Feet) 200 Able to Maintain Weight Bearing Status Yes During Gait Assistive Devices Assistive Device None,Gait Belt Orthotic/Prosthetic Devices or Brace: No Gait Deviations General Gait Pattern Antalgic,Lateral Trunk Lean Factors Limiting Gait Function Factors Limiting Gait Function Decreased Activity Tolerance, Decreased Strength,Poor Balance,Poor Safety Awareness Comments Gait Comments See mobility comments Stair Climbing Assessment Comments Stair Climbing Comments did not complete this treatment. PT-Balance Assessment Sitting Balance and Reactions Static Sitting Balance Ability Normal Dynamic Sitting Balance Ability Normal Standing Balance and Reactions Static Standing Balance Ability Good Dynamic Standing Balance Ability Fair Device Used no AD Comments Other Balance Tests/Deviations/Treatment See mobility comments : M5 PT-IP Objective Assessments Start: 06/28/19 12:12 Freq: NEEDED Status: Active Protocol: Document 06/28/19 10:29 AB (Rec: 06/28/19 12:23 AB [id number]) Orientation Orientation/Cognition Level of Alertness Alert Orientation Name,Age,Place,Situation Language Function Ability No Deficits Noted Safety Awareness Understands Safety Issues Memory Description No Deficits Noted Gross Range of Motion Lower Extremity ROM Assessment Within Functional Limits Strength Lower Extremity Strength Assessment Within Functional Limits Coordination Assessment Gross Coordination Gross Coordination WNL Sensation Assessment Sensation Gross Sensation WNL Muscle Tone Muscle Tone WNL Yes M6 PT-IP Treatment Start: 06/28/19 12:12 Freq: NEEDED Status: Active Protocol: Document 07/02/19 14:05 SP (Rec: 07/02/19 17:43 SP [id number]) Physical Therapy Treatment Education Education Provided Precautions,Safety M7 PT-IP Assessment and Plan Start: 06/28/19 12:12 Freq: NEEDED Status: Active Protocol: Document 07/02/19 14:05 SP (Rec: 07/02/19 17:43 SP [id number]) PT Summary Assessment and Plan Potential Rehabilitation Potential Good Status of Condition at Evaluation Stable Summary Impairments Pain,ROM,Strength,Balance,Gait ,Activity Tolerance Assessment Summary Pt I during bed mobility, required SBA- CGA during gait no AD use of gait belt. Pt improved during gait no AD but demonstrates sway to R during straight directioning in hallway but self recovery CGA, see mobility comments further details. Pt had loose stool instance end of tx and while standign at sink became dizzy, took vitals end once in supine and had elevated BP 147 /67 with HR 98bpm. Recommend further acute PT treatment for gait, standing balance activities and therex to increase strength and balance for safety and decrease risk for falls. ELECTRIC PLATER discussed with patient recommend SBA during out of bed mobility for safety , decrease risk for falls with verbal understanding. ELECTRIC PLATER recommending home with assistance 22/09, and outpatient PT if available to progress strengthening and balance. Goals Bed Mobility Goal Independent Transfer Goal Independent,Front Wheeled Walker Gait Goal Independent,Front Wheel Walker Gait Distance 100 Days to Meet Goals 5 Frequency of Treatment Frequency Of Treatment Once a Day Treatment Plan Physical Therapy Treatment Plan Bed Mobility Training,Transfer Training,Gait Training, Therapeutic Exercise,Balance Retraining,Post Op Education, Discharge Planning,Hot or Cold Pack,Neuromuscular Re-ed, Coordination Retraining,Manual Therapy Other Recommendations and Next Treatment Gait with gait belt no AD, FWW Focus if unstable, balance activities. Recommendations To Nursing Amount of Assist Needed Standby Assistance Discharge Recommendations PT Discharge Recommendations Home with Assistance, Outpatient PT Equipment Needed for Home Before FWW if not safe without AD Discharge Transportation Needs at Discharge Private Vehicle
[2019-07-02 15:16] VITALS: BP 133/66; PULSE 96; RESP 18; TEMP 36.4; O2SAT 98
[2019-07-02] MEDS: ACETAMINOPHEN 325 MG TABLET 650 MG PO (16:20)
[2019-07-02 19:38] VITALS: BP 136/58; PULSE 88; RESP 18; TEMP 36.3; O2SAT 97
[2019-07-02] MEDS: estradioL 1 MG TABLET PO (21:19)
[2019-07-02] MEDS: LORATADINE 10 MG TABLET PO (21:19)
[2019-07-02] MEDS: AMLODIPINE 2.5 MG TABLET PO (21:19)
[2019-07-02] MEDS: AMOXICILLIN 250 MG CAPSULE 500 MG PO (21:19)
[2019-07-02] MEDS: ROSUVASTATIN 10 MG TABLET 20 MG PO (21:19)
[2019-07-03 01:00] VITALS: BP 146/76; PULSE 100; RESP 16; TEMP 36.8; O2SAT 95
--- NOTE | 2019-07-03 02:38 | PC.NURSE ---
Addendum entered by Johanny Michelle R.N. 07/03/19 02:52: Complains of right sided head/face pain related to toothache (was to have emergent DDS appointment day she was admitted); medicated with Tylenol. Original Note: Patient seen and assessed at 0100. Is alert and oriented. Breath sounds CTA with RA sat of 95%. HRR although tachy at 100 bpm. BP trends higher at 146/76. Denies nausea. BT present. Has stool urgency and has been having liquid stool; most recent stool had fecal particles noted. Having some dysuria following catheter removal but states is is improving. Able to turn self in bed. Gets up to BSC independently but when up in room/camilo is using walker and SBA. Midline abdominal incision is stapled and PARVIN; well approximated without redness or drainage. Dressing over drain is CDI; drain compressed and has mostly serous drainage in bulb. Noted small scratch on left elbow. Red, raised rash noted on upper back; patient states it itches so lotion applied with relief. Patient believes rash may be related to soap used when showering yesterday as she states she is sensitive to soaps. Refusing SCD's due to urgency or stooling. Denies pain except for discomfort from gas; declines need for pain medication. Fall risk score is moderate.
[2019-07-03] MEDS: ACETAMINOPHEN 325 MG TABLET 650 MG PO (02:49)
[2019-07-03 03:00] VITALS: BP 150/66; PULSE 84; RESP 16; TEMP 36.3; O2SAT 95
[2019-07-03 06:11] LABS: BUN Creatinine Ratio 9.5 (6-22); Blood Urea Nitrogen 7 mg/dL (7-17); Calcium 8.8 mg/dL (8.4-10.2); Carbon Dioxide 29 mmol/L (22-32); Chloride 99 mmol/L (98-107); Estimated Glomerular Filt Rate > 60.0 mL/min (>60); Glucose 102 mg/dL (80-110); HEMOLYSIS < 15 (0-50); Magnesium 1.7 mg/dL (1.6-2.3); Potassium 3.1 mmol/L (3.4-5.1); Sodium 135 mmol/L (137-145)
[2019-07-03] MEDS: PANTOPRAZOLE 20 MG TABLET PO (06:23)
[2019-07-03 07:29] LABS: Creatinine Body Fluid 0.78 mg/dL
[2019-07-03 08:00] VITALS: BP 135/72; PULSE 98; RESP 16; TEMP 36.6; O2SAT 98
[2019-07-03] MEDS: LACTOBACILLUS ACIDOPHILUS TABLET 1 EACH PO (09:14)
[2019-07-03] MEDS: POTASSIUM CHLORIDE 20 MEQ TAB 40 MEQ PO (09:14)
[2019-07-03] MEDS: ASPIRIN EC 81 MG TABLET PO (09:15)
[2019-07-03] MEDS: ACYCLOVIR 400 MG TABLET 800 MG PO (09:15)
[2019-07-03] MEDS: ENOXAPARIN 40 MG/0.4 ML SYRINGE SUBCUT (09:16)
--- NOTE | 2019-07-03 09:16 | P.DS_ITS ---
History of Present Illness History of Present Illness Date Patient Seen: 06/27/19 Time Patient Seen: 14:54 Chief complaint: VOMITING/ABDOMINAL PAIN Narrative: Annie Ryan is an 83-year-old female with past medical history of hypertension, rheumatoid arthritis who presented to the emergency room with worsening abdominal pain. Recently had a dental infection is been taking Flagyl. She drink wine and shortly after that developed severe nausea and vomiting. She presented to the emergency room yesterday and was given antiemetic and discharged home after laboratory evaluation was unremarkable. Overnight she began to develop severe (9/10) worsening bilateral lower and then generalized diffuse abdominal pain, radiating into her back and came back into the emergency room. Her emesis was nonbloody nonbilious and she states that she had a bowel movement yesterday that was loose but there was no hematochezia or melena. In the emergency room, her initial blood pressure was 200/90, pulse in the 80s, but other vital signs were unremarkable. Initial laboratory evaluations showed a a WBC of 13.7, creatinine of 1.15 from a baseline of 0.9, AST of 39, but no other lab abnormalities. UA was unremarkable. CT abdomen and pelvis demonstrated a small segment of her small bowel in the lower abdomen that was inflamed with stranding. She does endorse prior intra-abdominal surgeries including appendectomy. Surgery was consulted who recommended admission to Medicine for further monitoring. Discharge Providers Provider Date of admission: 06/28/19 11:50 Discharge Date: 07/03/19 Primary care physician: Will Tadeo MD Consults: 06/28/19 09:48 Consult to Physical Therapy Evaluate & Treat Comment: Physician Instructions: Evaluate and Treat Discharge provider: Carmen Nugent MD Summary Hospital Course Discharge Diagnosis: Small bowel obstruction with ischemic small bowel segment Hospital Course: THe patient was taken to the OR by Dr. Evangelista and was found to have a segment of necrotic bowel. THis was resected and anastomosis was performed. She gradually recovered and bowel function returned. On day of dis charge she is tolerating PO, pain is controlled without narcotic pain medication, and she is passing loose to formed stool. Status at Discharge Cognitive/behavioral status at discharge: at baseline, oriented Functional status at discharge: uses cane/walker Overall status at discharge: patient is progressing back to baseline Time Spent with Patient Time spent: Greater than 30 minutes Exam Vital Signs (past 8 hours): - 07/03/19 03:00 07/03/19 08:00 Temperature 97.4 F L 97.8 F Pulse Rate 84 98 H Respiratory Rate 16 16 Blood Pressure 150/66 H 135/72 Pulse Oximetry 95 98 Oxygen Delivery Method Room Air Oxygen Flow Rate 0 Narrative Exam Narrative: General: adult female alert oriented No acute distress, smiling, appears well Chest: nonlabored respiration Abdomen soft nondistended incision clean dry intact, ROSIE drain serosanguineous; ROSIE removed during exam Objective Labs Result Diagrams: 06/30/19 06:00 07/03/19 05:34 Labs: Laboratory Results - last 24 hr 07/03/19 07/03/19 05:34 06:45 Sodium 135 L Potassium 3.1 L Chloride 99 Carbon Dioxide 29 BUN 7 Creatinine 0.74 Estimated GFR > 60.0 BUN/Creatinine Ratio 9.5 Glucose 102 Calcium 8.8 Magnesium 1.7 Fluid Creatinine 0.78 Discharge Plan Discharge Plan Patient Disposition: Home Discharge comment: You had removal of part of your small intestine. You have recovered well so far, and we feel you are well enough to go home. You should eat your regular diet, and make sure to keep well hydrated. See your primary doctor in the next 1-2 weeks to follow up from your hospitalization and recheck your potassium levels. You are being discharged with two new medications, potassium and a probiotic. The probiotic is to help with your loose stool and return normal bowel erinn to the colon. The potassium is to help with low potassium levels you have had while in the hospital. We recommend your primary doctor determine when you can come off the potassium pills. You should avoid heavy lifting or straining for six weeks after surgery, to reduce the risk of developing a hernia at your surgical site. Keep a dry dressing on the spot where your surgical drain was removed. Expect to see clear fluid draining from the site for a few days up to a week. Once it stops draining, you do not need to keep a dressing on it any more. Leave the steri strips in place until they fall off on their own. If you experience fevers, chills, new or worsening pain, nausea, vomiting, inability to pass stool or gas, redness or drainage from your surgical incision, chest pain, shortness of breath, or other concerning symptoms please contact the doctor talent solutions manager or come into the ER. You can contact the doctor talent solutions manager for [facility] by calling our office number and listening to the recorded message and choosing the option to page the doctor talent solutions manager. If your symptoms are severe please come into the ER to be seen immediately rather than waiting for a call back. Discharge orders & Medications Prescriptions: New potassium chloride 20 mEq tablet,ER particles/crystals 20 meq PO BID Qty: 60 RF: 0 Culturelle 10 billion cell capsule 1 cap PO BID Qty: 60 RF: 0 Continued loratadine [Claritin] 10 MG tablet 10 mg PO PRN Qty: 0 RF: 0 lisinopril-hydrochlorothiazide 20-12.5 mg Tablet 1 tab PO DAILY RF: 0 amoxicillin 500 mg Tablet 500 mg PO BEDTIME RF: 0 acyclovir 800 mg Tablet 800 mg PO DAILY RF: 0 estradiol 1 mg Tablet 1 mg PO DAILY RF: 0 rosuvastatin 20 mg Tablet 10 mg PO BEDTIME RF: 0 aspirin 81 mg Tablet,Delayed Release (Dr/Ec) 81 mg PO DAILY RF: 0 ranitidine HCl 150 mg Capsule 150 mg PO DAILY RF: 0 lutein-zeaxanthin 25-5 mg Capsule 1 cap PO DAILY RF: 0 amlodipine 2.5 mg Tablet 5 mg PO DAILY RF: 0 omeprazole 20 mg Capsule,Delayed Release(Dr/Ec) 20 mg PO DAILY RF: 0 Discontinued ondansetron 4 mg tablet,disintegrating 4 mg PO Q6-8H PRN (Reason: nausea and vomiting) Qty: 10 RF: 0 metronidazole 500 mg Tablet 500 mg PO BID RF: 0 Follow up/Referrals: Will Tadeo MD [Primary Care Provider] - Panda Evangelista MD [Physician] - (Please call the [facility] office on Thursday to make a follow up to see Dr. Evangelista two to three weeks after the date of surgery.) Diet/Activity/Treatments Diet: Diet as Tolerated Skin/Wound/Dressing Care Report to your healthcare provider any signs of infection, such as:: chills, fever, night sweats, increased pain, unusual drainage and unusual redness Visit Report/Discharge Packet Instructions: DI for Small Bowel Resection, How to Prevent Falls, DI for Postoperative Pain, [facility]: Wound Care Discharge Data Primary Care Provider: Will Tadeo V Discharges patient from system. Discharge Date/Time: 07/03/19 11:45 Quality VTE Deep Vein Thrombosis/Pulmonary Embolism Present on Admission: No
[2019-07-03] MEDS: hydroCHLOROthiazide 12.5 MG CAPSULE PO (09:17)
[2019-07-03] MEDS: VIT C/E/ZN/COPPR/LUTEIN/ZEAXAN CAPSULE 1 CAP PO (09:17)
[2019-07-03] MEDS: lisinopriL 20 MG TABLET PO (09:17)
--- NOTE | 2019-07-03 10:36 | CM.DANOTE ---
Addendum entered by Tamara Bean 07/03/19 10:48: Final PAM signed by patient this AM. EDMAR Original Note: DCP/continued: Received notification from RN/Mary Ellen that patient will be discharging home today. No identified d/c planning needs expect for FWW. Obtained order and notified Niki with PT. P: Home today. CANDE [place] Discharge Planning/Care Management CM Discharge Assessment Start: 06/28/19 13:41 Freq: Status: Active Protocol: Document 06/28/19 13:41 ITV (Rec: 06/28/19 13:43 ITV [id number]) Discharge Planning Assessment Advance Directives? Yes History Provided By Patient,Medical Record Prior Living Arrangements House Household Members spouse Independent with ADL's Yes Is patient alert and oriented? Yes Comment uses no assistive device at baseline. Typically wallks 3 miles a day with friends. Less so since the [facility] Covid directive. (about a mile now) Review Status In Process Document 07/03/19 10:35 KJS (Rec: 07/03/19 10:36 KJS [id number]) Discharge Planning Assessment Assigned Autism Tutor CANDE [place] Advance Directives? Yes History Provided By Medical Record Prior Living Arrangements House Household Members spouse Independent with ADL's Yes Is patient alert and oriented? Yes Comment uses no assistive device at baseline. Typically walks 3 miles a day with friends. Less so since the [facility] Covid directive. (about a mile now) Barriers to Discharge No Discharge Plan Home Transportation Arrangement Family Additional Comment Patient requiring FWW for home use at time of d/c. Obtained order. Review Status In Process Next Review Type Continued Stay Review
--- NOTE | 2019-07-03 10:37 | PT.IPTN ---
Current Diagnoses Unspecified intestinal obstruction, unspecified as to partial versus complete obstruction (06/28/19) Surgery Performed Operation Date: 06/27/19 18:00 Actual Procedures p Laparoscopy, Diagnostic to open laparotomy with small bowel resection - Panda Evangelista MD Physical Therapy Treatment Note M2 PT-IP Current Condition Start: 06/28/19 12:12 Freq: NEEDED Status: Discharge Protocol: Document 06/28/19 10:29 AB (Rec: 06/28/19 12:23 AB [id number]) Physical Therapy Current Condition Current Condition Evaluation Date 06/28/19 Treatment Diagnosis mesenteric ishemia s/p ex lap; enterectomy; difficulty in walking Onset Date 06/27/19 Precautions Abdominal Surgery Precautions Log Roll,Lifting Restrictions, Gait Belt above Incisional Area M3 PT-IP Subjective Start: 06/28/19 12:12 Freq: NEEDED Status: Discharge Protocol: Document 07/03/19 10:37 AB (Rec: 07/03/19 12:36 AB [id number]) Subjective Physical Therapy Visit Type Type Treatment Note Visit Start Time 10:37 Visit Stop Time 10:49 Total Visit Minutes 12 Number of ATLASSIAN ADMINISTRATOR Visits 0 Physical Therapy Visit Comments Patient Comments pt stated that she is very tired due to diarrhea and does not want much PT. M4 PT-IP Mobility and Gait Start: 06/28/19 12:12 Freq: NEEDED Status: Discharge Protocol: Document 07/03/19 10:37 AB (Rec: 07/03/19 12:36 AB [id number]) PT-Bed Mobility Assessment Supine to Sit Supine to Sit Standby Assistance,Head of Bed Elevated Sit to Supine Sit to Supine Standby Assistance PT-Transfer Assessment Sit to and From Stand Sit to and from Stand Standby Assistance,1 Person Assistance Equipment Transfer Assistive Device Gait Belt,Front Wheeled Walker Comments Mobility Comments pt hesistant to do PT and c/o feeling tired and that she does not want to be too tired when she gets home later today . talked to pt regarding equipment needs and stated that she will need a FWW. obtained order for FWW. adjusted FWW. pt agreed to get up to see if FWW will be the right height for her. completed supine to sit SBA with HOB elevated. completed sit to stand SBA. refused to do ambulation. pt stated that FWW is fine. pt went back to bed and completed sit to supine SBA. left pt with sample case porter in room. M5 PT-IP Objective Assessments Start: 06/28/19 12:12 Freq: NEEDED Status: Discharge Protocol: Document 06/28/19 10:29 AB (Rec: 06/28/19 12:23 AB [id number]) Orientation Orientation/Cognition Level of Alertness Alert Orientation Name,Age,Place,Situation Language Function Ability No Deficits Noted Safety Awareness Understands Safety Issues Memory Description No Deficits Noted Gross Range of Motion Lower Extremity ROM Assessment Within Functional Limits Strength Lower Extremity Strength Assessment Within Functional Limits Coordination Assessment Gross Coordination Gross Coordination WNL Sensation Assessment Sensation Gross Sensation WNL Muscle Tone Muscle Tone WNL Yes M6 PT-IP Treatment Start: 06/28/19 12:12 Freq: NEEDED Status: Discharge Protocol: Document 07/03/19 10:37 AB (Rec: 07/03/19 12:36 AB [id number]) Physical Therapy Treatment Education Education Provided Safety Equipment Issued Equipment Type and Company FWW from [employer] M7 PT-IP Assessment and Plan Start: 06/28/19 12:12 Freq: NEEDED Status: Discharge Protocol: Document 07/03/19 10:37 AB (Rec: 07/03/19 12:36 AB [id number]) PT Summary Assessment and Plan Potential Rehabilitation Potential Good Summary Impairments Pain,ROM,Strength,Balance,Bed Mobility,Transfers,Gait, Activity Tolerance Progress Towards Goals Slow Progress due to Activity Tolerance Assessment Summary pt refused to do ambulation today and stated that she is tired and has been getting up due to diarrhea. nurse confirmed. pt plans to go home today and spouse will be able to assist pt. Goals Bed Mobility Goal Independent Transfer Goal Independent,Front Wheeled Walker Gait Goal Independent,Front Wheel Walker Gait Distance 100 Days to Meet Goals 5 Frequency of Treatment Frequency Of Treatment Once a Day Treatment Plan Physical Therapy Treatment Plan Bed Mobility Training,Transfer Training,Gait Training, Therapeutic Exercise,Balance Retraining,Post Op Education, Discharge Planning,Hot or Cold Pack,Neuromuscular Re-ed, Coordination Retraining,Manual Therapy Recommendations To Nursing Amount of Assist Needed Standby Assistance Discharge Recommendations PT Discharge Recommendations Home with Assistance, Outpatient PT Transportation Needs at Discharge Private Vehicle
--- NOTE | 2019-07-03 12:30 | PC.NURSE ---
DAy Shift- Reviewed discharge summary packet with pt. Pt aware to call Dr's office Thursday morning to make follow up appointment with her PCP and Dr. Evangelista. No further voiced concerns. Reviewed but not limited to medications, prescriptions sent to [facility] and pt's aware to flower picker, S/S of infection, previous drain site care, and diet. Pt states has all belongings. Took new walker home that PT gave to pt. Pt left unit in no distress via wheelchair with TREATMENT MANAGER escort at [phone]. Pt's waiting at ED entrance to drive pt home.
== END 2019-07-03 11:45 | disposition home or self-care (01) | DRG 329 ==
LOC: ED 12:49 → AC 13:07
PROVIDERS: Surgery; Admitting Provider Internal Medicine; Emergency Provider Emergency Medicine; PCP Internal Medicine; Referring Provider Emergency Medicine; Visit Provider Surgery
PROC: 0DBB0ZZ Excision of Ileum, Open Approach (ICD-10-PCS; CPT 49320; principal; 2019-06-27 18:00)
DX: K55.011 Focal (segmental) acute (reversible) ischemia of small intestine (principal); K65.9 Peritonitis, unspecified; K56.50 Intestinal adhesions [bands], unspecified as to partial versus complete obstruction; K56.7 Ileus, unspecified; K46.9 Unspecified abdominal hernia without obstruction or gangrene; K21.9 Gastro-esophageal reflux disease without esophagitis; M35.3 Polymyalgia rheumatica; I10 Essential (primary) hypertension; T50.905A Adverse effect of unspecified drugs, medicaments and biological substances, initial encounter
CPT/HCPCS: 36415; 44120; 71260; 74018; 74022; 74177; 76770; 80048; 80053; 81003; 81015; 82565; 83605; 83690; 83735; 85025; 85610; 85730; 93005; 94760; 94762; 96361; 96374; 96375; 96376; 97112; 97116; 97161; 97530; 99222; 99284; 99285; G0378; C9113; J0330; J0690; J0780; J1100; J1170; J1650; J1885; J2060; J2270; J2405; J2543; J2704; J2765; J3010; J3480; Q9967

== ENCOUNTER → 2019-07-07 11:30 | Outpatient (CLI) | payer MEDICARE, BC, SELFPAY ==
[2019-06-27 14:00] VITALS: BMI 24.8
[2019-07-07 11:59] LABS: Add Manual Diff / Slide Review NO; Basophils Absolute Auto 100 /uL (0-100); Basophils Percent Auto 0.6 % (0-2); Eosinophils Absolute Auto 100 /uL (0-450); Eosinophils Percent Auto 1.2 % (2-4); Hematocrit 34.6 % (36-46); Lymphocytes Absolute Auto 2100 /uL (1100-4500); Lymphocytes Percent Auto 24.4 % (25-40); Mean Corpuscular HGB Conc 34.7 % (30-36); Mean Corpuscular Hemoglobin 33.7 PG (26-34); Mean Corpuscular Volume 97.1 fL (80-100); Monocytes Absolute Auto 700 /uL (0-900); Monocytes Percent Auto 8.5 % (3-14); Neutrophils Absolute Auto 5500 /uL (1500-7000); Neutrophils Percent Auto 65.3 % (50-75); Platelet Count 443 X10^3/uL (150-400); Red Blood Cell Count 3.57 X10^6/uL (4.0-5.2); Red Cell Distribution Width 11.9 % (11.6-14.8); White Blood Cell Count 8.5 X10^3/uL (4.5-11.0)
[2019-07-07 12:20] LABS: Alanine Aminotransferase 36 IU/L (<35); Albumin Globulin Ratio 1.2 (1.0-2.8); Alkaline Phosphatase 151 U/L (38-126); Aspartate Aminotransferase 35 IU/L (14-36); BUN Creatinine Ratio 10.9 (6-22); Bilirubin Total 0.4 mg/dL (0.2-1.3); Blood Urea Nitrogen 10 mg/dL (7-17); Calcium 9.3 mg/dL (8.4-10.2); Carbon Dioxide 28 mmol/L (22-32); Chloride 100 mmol/L (98-107); Estimated Glomerular Filt Rate 58.6 mL/min (>60); Globulin 3.4 g/dL (1.7-4.1); Glucose 110 mg/dL (80-110); Magnesium 1.4 mg/dL (1.6-2.3); Potassium 4.1 mmol/L (3.4-5.1); Sodium 138 mmol/L (137-145); Total Protein 7.4 g/dL (6.3-8.2)
[2019-07-07 13:11] LABS: HEMOLYSIS < 15 (0-50); Vitamin B12 954 pg/mL (239-931)
== END ==
PROVIDERS: PCP Internal Medicine; Referring Provider Internal Medicine; Visit Provider Internal Medicine
DX: K56.600 Partial intestinal obstruction, unspecified as to cause (principal); E83.42 Hypomagnesemia; D51.0 Vitamin B12 deficiency anemia due to intrinsic factor deficiency
CPT/HCPCS: 36415; 80053; 82607; 83735; 85025

== ENCOUNTER → 2020-08-31 08:25 | Outpatient (CLI) | payer MEDICARE, BC, SELFPAY ==
[2019-07-13 13:40] VITALS: BMI 24.8
[2020-08-31 09:24] LABS: Add Manual Diff / Slide Review NO; Basophils Absolute Auto 0 /uL (0-100); Basophils Percent Auto 0.5 % (0-2); Eosinophils Absolute Auto 200 /uL (0-450); Eosinophils Percent Auto 3.2 % (2-4); Hematocrit 38.5 % (36-46); Hemoglobin 12.8 g/dL (12.0-16.0); Lymphocytes Absolute Auto 2900 /uL (1100-4500); Lymphocytes Percent Auto 48.2 % (25-40); Mean Corpuscular HGB Conc 33.1 % (30-36); Mean Corpuscular Hemoglobin 33.7 PG (26-34); Mean Corpuscular Volume 101.7 fL (80-100); Monocytes Absolute Auto 500 /uL (0-900); Monocytes Percent Auto 7.9 % (3-14); Neutrophils Absolute Auto 2400 /uL (1500-7000); Neutrophils Percent Auto 40.2 % (50-75); Platelet Count 218 X10^3/uL (150-400); Red Blood Cell Count 3.79 X10^6/uL (4.0-5.2); Red Cell Distribution Width 12.7 % (11.6-14.8)
[2020-08-31 09:38] LABS: Alanine Aminotransferase 16 IU/L (<35); Albumin 4.6 g/dL (3.5-5.0); Albumin Globulin Ratio 1.3 (1.0-2.8); Alkaline Phosphatase 54 U/L (38-126); Aspartate Aminotransferase 30 IU/L (14-36); BUN Creatinine Ratio 16.7 (6-22); Bilirubin Total 0.7 mg/dL (0.2-1.3); Blood Urea Nitrogen 17 mg/dL (7-17); Calcium 9.2 mg/dL (8.4-10.2); Carbon Dioxide 29 mmol/L (22-32); Chloride 101 mmol/L (98-107); Estimated Glomerular Filt Rate 51.9 mL/min (>60); Globulin 3.5 g/dL (1.7-4.1); Glucose 88 mg/dL (80-110); HEMOLYSIS < 15 (0-50); Potassium 3.8 mmol/L (3.4-5.1); Sodium 137 mmol/L (137-145); Total Protein 8.1 g/dL (6.3-8.2)
== END ==
PROVIDERS: PCP Student in an Organized Health Care Education/Training Program; Referring Provider Student in an Organized Health Care Education/Training Program; Visit Provider Student in an Organized Health Care Education/Training Program
DX: E78.5 Hyperlipidemia, unspecified (principal); I10 Essential (primary) hypertension
CPT/HCPCS: 36415; 80053; 85025

== ENCOUNTER → 2020-09-22 11:23 | Outpatient (CLI) | payer MEDICARE, BC, SELFPAY ==
[2019-07-13 13:40] VITALS: BMI 24.8
[2020-09-22 13:14] LABS: COVID19 -Nasal RAPID Negative (Negative)
== END ==
PROVIDERS: PCP Student in an Organized Health Care Education/Training Program; Visit Provider Physician Assistant
DX: Z20.822 Contact with and (suspected) exposure to COVID-19 (principal); R09.81 Nasal congestion; R53.83 Other fatigue
CPT/HCPCS: 87635

== ENCOUNTER → 2021-06-07 08:36 | Outpatient (CLI) | payer MEDICARE, BC, SELFPAY ==
[2019-07-13 13:40] VITALS: BMI 24.8
[2021-06-07 09:38] LABS: Hematocrit 35.3 % (36-46); Hemoglobin 12.1 g/dL (12.0-16.0); Mean Corpuscular HGB Conc 34.3 % (30-36); Mean Corpuscular Volume 99.1 fL (80-100); Platelet Count 209 X10^3/uL (150-400); Red Blood Cell Count 3.56 X10^6/uL (4.0-5.2); Red Cell Distribution Width 12.9 % (11.6-14.8); White Blood Cell Count 5.5 X10^3/uL (4.5-11.0)
[2021-06-07 09:50] LABS: Blood Urea Nitrogen 15 mg/dL (7-17); Calcium 9.2 mg/dL (8.4-10.2); Carbon Dioxide 23 mmol/L (22-32); Chloride 106 mmol/L (98-107); Cholesterol 172 mg/dL (140-199); Glucose 90 mg/dL (80-110); HEMOLYSIS < 15 (0-50); Potassium 4.7 mmol/L (3.4-5.1); Sodium 138 mmol/L (137-145); Triglycerides 78 mg/dL (35-150)
[2021-06-07 10:00] LABS: HDL Cholesterol 114 mg/dL (40-60); LDL Cholesterol Calculated 42 mg/dL (<100)
[2021-06-07 10:22] LABS: TSH w/ Reflex to FT4 0.53 uIU/mL (0.47-4.68)
[2021-06-07 10:38] LABS: Vitamin B12 811 pg/mL (239-931)
== END ==
PROVIDERS: PCP Student in an Organized Health Care Education/Training Program; Referring Provider Student in an Organized Health Care Education/Training Program; Visit Provider Student in an Organized Health Care Education/Training Program
DX: E78.2 Mixed hyperlipidemia (principal); I10 Essential (primary) hypertension; R53.83 Other fatigue
CPT/HCPCS: 36415; 80048; 80061; 82607; 84443; 85027

== ENCOUNTER → 2021-06-18 09:41 | Outpatient (CLI) | payer MEDICARE, BC, SELFPAY ==
[2019-07-13 13:40] VITALS: BMI 24.8
[2021-06-18 10:40] LABS: COVID19 -Nasal RAPID Negative (Negative)
== END ==
PROVIDERS: PCP Student in an Organized Health Care Education/Training Program; Visit Provider Surgery
DX: Z01.812 Encounter for preprocedural laboratory examination (principal); Z20.822 Contact with and (suspected) exposure to COVID-19
CPT/HCPCS: 87635; C9803

== ENCOUNTER 2021-06-19 07:28 | Day surgery (SDC) | payer MEDICARE, BC, SELFPAY ==
[2019-07-13 13:40] VITALS: BMI 24.8
[2021-06-18 08:20] VITALS: BMI 22.6
[2021-06-19] VITALS (7 sets, daily range): BP systolic 137–175; BP diastolic 62–84; PULSE 75–85; RESP 10–18; TEMP 36–36.4; O2SAT 96–98; BMI 22.6
[2021-06-19] MEDS: LACTATED RINGERS 1,000 ML 42 ML IV (08:26)
--- NOTE | 2021-06-19 08:35 | PM.PREOP ---
Pre-operative Note Interval Note History & Physical reviewed/Exam performed by Physician: Yes Changes to H&P: No
[2021-06-19] MEDS: CEFAZOLIN 2 GM/20 ML SYRINGE IV (08:55)
--- NOTE | 2021-06-19 09:20 | SUR.OPER ---
Supine on padded OR bed, head on pillow, arms secured on padded arm boards at <90 degrees abduction, legs uncrossed, safety belt at thigh, tape over blanket over lower legs. Gel pad under heels.
[2021-06-19] MEDS: BUPIVACAINE 0.25% (PF) VIAL 30 ML INJ (09:40)
--- NOTE | 2021-06-19 10:07 | PM.OP.1 ---
Operative Date/Time/Diagnoses Date of procedure: 06/19/21 Time of procedure: 10:07 Pre-op diagnosis: Left inguinal hernia Post-op diagnosis: same Procedure & Clinicians Procedure: Open left inguinal hernia repair with mesh Same procedure as scheduled: Yes Indications: Symptomatic reducible left inguinal hernia Surgeon: Panda Padgett Yes if Unassisted: Yes Anesthesia Type: General Operative Notes Findings: Direct floor defect Specimen(s): none sent Estimated Blood Loss (mL): 10 Procedure in detail: The patient was placed supine on the table and bilateral lower extremity compression devices were applied. Anesthesia was induced they were intubated with an LMA and received insert. A time-out was performed. They were prepped and draped in sterile fashion. The left external inguinal ring and the anterior superior iliac crest were identified and marked. 1 finger breath above the inguinal ligament the skin was infiltrated with 0.25% bupivacaine. The skin incision was made here and the subcutaneous tissues were divided with electrocautery exposing the external oblique aponeurosis which was then opened along the direction of its fibers. Using blunt dissection the internal oblique aporneurosis was from the external oblique upper leaflet to identify the iliohypogastric nerve. Round ligament was divided. direct floor defect was identified and it was reduced into the abdomen and the internal oblique aporneuorsis was approximated to the inguinal ligament with Ethibond suture to reapproximate the floor over a plug mesh. I selected a 7x 15 cm lightweight Pro Loop hernia mesh. The inferior medial aspect of the mesh was anchored to insertion of the rectus muscle to the pubic tubercle such that there was approximately 2 cm of tubercle overlap with Ethibond and then was run continuously along the inferior edge of the mesh to the shelving edge of the inguinal ligament. Interrupted 3 0 Vicryl suture was used to anchor the superior aspect of the mesh to the conjoined tendon in several places. The repair was checked for hemostasis. The wound was irrigated with sterile saline. The external oblique aponeurosis was reapproximated in a running fashion using 3 0 Vicryl. The subcutaneous tissues were reapproximated with 3 0 Vicryl skin closed with 4 0 Monocryl followed by the application of Dermabond. The sponge instrument count at the end operation was correct. The patient emerged from anesthesia was extubated and transferred to the postoperative care unit in stable condition. A total of 30 ml of of 0.25% bupivicaine was used to infiltrate the skin. Complications: none Post-operative Condition: stable Disposition: same day surgery
== END 2021-06-19 10:54 | disposition home or self-care (01) ==
PROVIDERS: PCP Student in an Organized Health Care Education/Training Program; Referring Provider Surgery; Visit Provider Surgery
PROC: (CPT 49505; principal; 2021-06-19 08:45)
DX: K40.91 Unilateral inguinal hernia, without obstruction or gangrene, recurrent (principal)
CPT/HCPCS: 49505; J0690; J1100; J2405; J2704; J3010

== ENCOUNTER 2021-06-21 13:49 | Emergency (ER) | payer MEDICARE, BC, SELFPAY ==
[2019-07-13 13:40] VITALS: BMI 24.8
[2021-06-21] VITALS (21 sets, daily range): BP systolic 153–207; BP diastolic 54–86; PULSE 82–101; RESP 18; TEMP 36.3; O2SAT 89–98; BMI 22.1
[2021-06-21 14:33] LABS: Add Manual Diff / Slide Review NO; Basophils Absolute Auto 0 /uL (0-100); Basophils Percent Auto 0.3 % (0-2); Eosinophils Absolute Auto 100 /uL (0-450); Eosinophils Percent Auto 0.8 % (2-4); Hematocrit 36.9 % (36-46); Hemoglobin 12.4 g/dL (12.0-16.0); Lymphocytes Absolute Auto 1800 /uL (1100-4500); Lymphocytes Percent Auto 16.1 % (25-40); Mean Corpuscular HGB Conc 33.6 % (30-36); Mean Corpuscular Hemoglobin 33.3 PG (26-34); Mean Corpuscular Volume 99.2 fL (80-100); Monocytes Absolute Auto 700 /uL (0-900); Monocytes Percent Auto 5.9 % (3-14); Neutrophils Absolute Auto 8700 /uL (1500-7000); Neutrophils Percent Auto 76.9 % (50-75); Platelet Count 211 X10^3/uL (150-400); Red Blood Cell Count 3.72 X10^6/uL (4.0-5.2); Red Cell Distribution Width 12.7 % (11.6-14.8); White Blood Cell Count 11.3 X10^3/uL (4.5-11.0)
[2021-06-21 14:46] LABS: Alanine Aminotransferase 13 IU/L (<35); Albumin 4.6 g/dL (3.5-5.0); Albumin Globulin Ratio 1.4 (1.0-2.8); Alkaline Phosphatase 51 U/L (38-126); Aspartate Aminotransferase 29 IU/L (14-36); Bilirubin Total 0.6 mg/dL (0.2-1.3); Blood Urea Nitrogen 17 mg/dL (7-17); Calcium 8.9 mg/dL (8.4-10.2); Carbon Dioxide 27 mmol/L (22-32); Chloride 104 mmol/L (98-107); Estimated Glomerular Filt Rate 56 mL/min (>60); Globulin 3.3 g/dL (1.7-4.1); Glucose 114 mg/dL (80-110); HEMOLYSIS < 15 (0-50); Lipase 89 U/L (23-300); Sodium 140 mmol/L (137-145); Total Protein 7.9 g/dL (6.3-8.2)
--- NOTE | 2021-06-21 15:34 | DI.RAD.S_ITS ---
PROCEDURE: XR ACUTE ABDOMEN SERIES INDICATIONS: h/o hernia surgery, abd pain, no bm x 5 days, h/o sbo TECHNIQUE: One view chest and two views of the abdomen were acquired. COMPARISON: [facility], , XR ACUTE ABDOMEN SERIES, 06/26/2019, 15:42. FINDINGS: Surgical changes and devices: Surgical clips are seen projecting over the right upper quadrant.. Chest: Lungs are clear. Heart size is normal. No pleural effusions. No pneumoperitoneum. Abdomen: A few foci of nondilated gas-filled small bowel loops are seen in the abdomen. No suspicious calcifications. Visualized solid organ contours appear normal. Bones: No suspicious bony lesions. Trace levoconvex curvature of the thoracic spine. There is mild dextroconvex curvature of the lumbar spine. Multilevel degenerative changes are seen. In the spine and hips. IMPRESSION: Nonspecific nonobstructive bowel gas pattern. No pneumoperitoneum. Dictated by: Jn Meraz M.D. on 06/21/2021 at 16:32 Approved by: Jn Meraz M.D. on 06/21/2021 at 16:35
--- NOTE | 2021-06-21 18:35 | ED_ITS ---
HPI - General Adult General Chief complaint: Abdominal Pain Stated complaint: surgery 06/19 no bowel mvmt, throwing up Time Seen by Provider: 06/21/21 17:43 Source: patient and family Mode of arrival: Ambulatory Limitations: no limitations History of Present Illness HPI narrative: Patient is an 85-year-old female. Two days ago underwent a left inguinal hernia repairs an outpatient and was discharged home on same day. She states she has not had a bowel movement since prior to that procedure. She has had issues with constipation in the past. She has also had bowel obstructions in the past. Has also had small-bowel resection secondary to this issue. She states that she did have some nausea and throwing up this morning. No fevers. She is still passing flatus. She denies any urinary symptoms. Related Data Home Medications Medication Instructions Recorded Confirmed loratadine 10 mg tablet (Claritin) 10 mg PO PRN #0 12/20/10 06/19/21 lutein 25 mg-zeaxanthin 5 mg 1 cap PO DAILY 06/28/19 06/19/21 capsule aspirin 325 mg tablet 325 mg PO DAILY 06/21/20 06/19/21 Fish Oil DAILY 06/19/21 biotin 10,000 mcg capsule 10,000 mcg PO DAILY 06/19/21 06/19/21 coQ10 (ubiquinol) 200 mg capsule 200 mg PO DAILY 06/19/21 06/19/21 cyanocobalamin (vitamin B-12) 100 100 mcg PO DAILY 06/19/21 06/19/21 mcg tablet (Vitamin B-12) flaxseed oil MISCELLANEOUS DAILY 06/19/21 folic acid 800 mcg tablet 0.8 mg PO DAILY 06/19/21 06/19/21 turmeric 400 mg capsule 1,500 mg PO DAILY 06/19/21 06/19/21 lisinopril 20 mg tablet 10 mg PO DAILY 06/21/21 06/21/21 Previous Rx's Medication Instructions Recorded acyclovir 800 mg tablet 800 mg PO DAILY #90 tab 09/14/19 estradiol 1 mg tablet 1 mg PO DAILY #90 tab 06/10/21 rosuvastatin 10 mg tablet 10 mg PO BEDTIME #90 tab 06/10/21 acetaminophen 325 mg capsule 650 mg PO QID PRN #60 cap 06/19/21 (Tylenol) Allergies Allergy/AdvReac Type Severity Reaction Status Date / Time adhesive tape [ADHESIVE TAPE] Allergy Severe Rash Verified 06/19/21 08:08 codeine [CODEINE] Allergy Severe respiratory Verified 06/19/21 08:08 failure diazepam [DIAZEPAM] Allergy Severe respiratory Verified 06/19/21 08:08 problems procaine [PROCAINE] Allergy Severe SEVERE Verified 06/19/21 08:08 FACIAL SWELLING Review of Systems Constitutional Constitutional: Denies fever(s) Cardiovascular Cardiovascular: Reports system reviewed and no additional complaints, except as documented Respiratory Respiratory: Reports system reviewed and no additional complaints, except as documented Gastrointestinal Gastrointestinal: Reports as per HPI and Reports system reviewed and no teena tional complaints, except as documented Genitourinary Genitourinary: Reports system reviewed and no additional complaints, except as documented and Reports as per HPI Musculoskeletal Musculoskeletal: Denies back pain Integumentary/Breasts Comments: Bruising left groin near surgical signs Neurologic Neurologic: Reports system reviewed and no additional complaints, except as doc umented Hematologic/Lymphatic On Anticoagulants: No Patient History Medical History Barretts esophagus GE reflux Herpes zoster complicated Hypertension Inflammation of small intestine Mixed hyperlipidemia Polymyalgia rheumatica Surgical History H/O: hysterectomy History of bladder suspension procedure Hx of abdominal surgery (06/27/19) Hx of cholecystectomy S/P appendectomy Social History household members: significant other Smoking Status: Former smoker alcohol intake: current Smoking Status: Former smoker alcohol intake frequency: 0-2 drinks per day Alcohol type: wine Substance Use Type: does not use Exam Initial Vital Signs Initial Vital Signs: Vital Signs Temperature 97.3 F L 06/21/21 13:55 Pulse Rate 82 06/21/21 13:55 Respiratory Rate 18 06/21/21 13:55 Blood Pressure 189/79 H 06/21/21 13:55 Pulse Oximetry 96 06/21/21 13:55 Const General: cooperative, comfortable, well developed and well groomed HENMT Head: normal to inspection and normocephalic Resp Effort & Inspection: normal respiratory effort Auscultation: clear to auscultation bilaterally Cardio Rate: regular rate Rhythm: regular rhythm GI Inspection: non-distended Palpation: soft, No firm and tender Skin Other: Bruising left inguinal area around surgical incision consistent with her stated inguinal hernia repair. There is no signs of infection. Surgical wound looks well. Steri-Strips intact. Neuro General: patient alert, patient awake and moves all extremities Course Orders Ordered: ED Orders 06/21/21 18:37 CT abdomen pelvis w con Stat Discontinued Medications Sodium Chloride (Normal Saline 0.9%) 1,000 mls @ 1,000 mls/hr IV BOLUS ONE Stop: 06/21/21 19:35 Last Infusion: 06/21/21 23:06 Dose: 0 mls/hr Documented by: Admin: 06/21/21 18:45 Dose: 1,000 mls/hr Documented by: OBI Lisinopril (Lisinopril 10 Mg Tablet) 10 mg PO NOW ONE Stop: 06/21/21 23:36 Last Admin: 06/21/21 23:44 Dose: 10 mg Documented by: SALENA Ondansetron HCl (Ondansetron 4 Mg Odt Prepack) 1 bottle MISC SEEINSTR ONE Stop: 06/21/21 23:52 Last Admin: 06/22/21 00:05 Dose: 1 bottle Documented by: SALENA Sodium Biphosphate/Sodium Phosphate (Fleets Enema) 1 each DC NOW ONE Stop: 06/21/21 22:29 Last Admin: 06/21/21 22:50 Dose: 1 each Documented by: SALENA Vital Signs Vital signs: Vital Signs - 8 hr 06/21/21 18:30 06/21/21 19:23 06/21/21 19:24 Pulse Rate 83 87 Blood Pressure 174/79 H 179/81 H Pulse Oximetry 97 95 96 06/21/21 19:30 06/21/21 20:00 06/21/21 20:10 Pulse Rate 85 89 98 H Blood Pressure 172/78 H 167/77 H 169/84 H Pulse Oximetry 92 97 95 06/21/21 20:56 06/21/21 20:58 06/21/21 21:00 Pulse Rate 100 H 96 H 90 Blood Pressure 188/83 H 170/62 H Pulse Oximetry 89 L 95 95 06/21/21 21:24 06/21/21 21:30 06/21/21 22:38 Pulse Rate 96 H 86 85 Blood Pressure 171/79 H 153/65 H 164/76 H Pulse Oximetry 96 94 94 06/21/21 22:52 06/21/21 23:01 06/21/21 23:12 Pulse Rate 101 H Blood Pressure 191/86 H 170/74 H Pulse Oximetry 97 06/21/21 23:44 06/21/21 23:45 06/22/21 00:00 Pulse Rate 89 92 H Blood Pressure 207/76 H 194/81 H Pulse Oximetry 96 97 95 Medical Decision Making Medical Records Medical records reviewed: Yes I reviewed the patient's medical records. Lab Data Lab results reviewed: Yes I reviewed the patient's lab results. Result diagrams: 06/21/21 14:15 06/21/21 14:15 Labs: Lab Results 06/21/21 06/21/21 Range/Units 14:15 14:15 WBC 11.3 H (4.5-11.0) X10^3/uL RBC 3.72 L (4.0-5.2) X10^6/uL Hgb 12.4 (12.0-16.0) g/dL Hct 36.9 (36-46) % MCV 99.2 (80-100) fL MCH 33.3 (26-34) PG MCHC 33.6 (30-36) % RDW 12.7 (11.6-14.8) % Plt Count 211 (150-400) X10^3/uL Neut % (Auto) 76.9 H (50-75) % Lymph % (Auto) 16.1 L (25-40) % [place] % (Auto) 5.9 (3-14) % Eos % (Auto) 0.8 L (2-4) % Baso % (Auto) 0.3 (0-2) % Neut # (Auto) 8700 H (0407-5369) /uL Lymph # (Auto) 1800 (0423-6355) /uL [place] # (Auto) 700 (0-900) /uL Eos # (Auto) 100 (0-450) /uL Baso # (Auto) 0 (0-100) /uL Sodium 140 (137-145) mmol/L Potassium 4.0 (3.4-5.1) mmol/L Chloride 104 (98-107) mmol/L Carbon Dioxide 27 (22-32) mmol/L BUN 17 (7-17) mg/dL Creatinine 1.00 (0.52-1.04) mg/dL Estimated GFR 56 L (>60) mL/min BUN/Creatinine Ratio 17.0 (6-22) Glucose 114 H (80-110) mg/dL Calcium 8.9 (8.4-10.2) mg/dL Total Bilirubin 0.6 (0.2-1.3) mg/dL AST 29 (14-36) IU/L ALT 13 (<35) IU/L Alkaline Phosphatase 51 (38-126) U/L Total Protein 7.9 (6.3-8.2) g/dL Albumin 4.6 (3.5-5.0) g/dL Globulin 3.3 (1.7-4.1) g/dL Albumin/Globulin Ratio 1.4 (1.0-2.8) Lipase 89 (23-300) U/L Urine Dip Bedside Urine Glucose 100 mg/dl Bedside Urine Bilirubin - Negative Bedside Urine Ketone +/- 5 Urine Specific [place] 1.015 Bedside Urine Occult Blood - Negative Bedside Urine pH 6 Bedside Urine Protein - Negative Bedside Urine Urobilinogen - Negative Bedside Urine Nitrite - Negative Bedside Urine Leukocytes - Negative Esterase Point of care testing: Urine Dip Bedside Urine Glucose 100 mg/dl Bedside Urine Bilirubin - Negative Bedside Urine Ketone +/- 5 Urine Specific [place] 1.015 Bedside Urine Occult Blood - Negative Bedside Urine pH 6 Bedside Urine Protein - Negative Bedside Urine Urobilinogen - Negative Bedside Urine Nitrite - Negative Bedside Urine Leukocytes - Negative Esterase Imaging Data Abdominal x-ray: Radiologist's Impression: [address] [address] XRay Report Signed Patient: Annie Ryan MR#: [id number] : 1935 Acct:[id number] Age/Sex: 85 / F Date of Service: 06/21/21 Loc: ED Accession Number: [id number] ?? Procedure: XR acute abdomen series Ordering Provider: Guillermo Tucker P.A-C PROCEDURE:? XR ACUTE ABDOMEN SERIES ? INDICATIONS:? h/o hernia surgery, abd pain, no bm x 5 days, h/o sbo ? TECHNIQUE:? One view chest and two views of the abdomen were acquired.? ? COMPARISON:? [facility], CR, XR ACUTE ABDOMEN SERIES, 06/26/2019, 15:42. ? FINDINGS:? ? Surgical changes and devices:? Surgical clips are seen projecting over the right upper quadrant..? ? Chest:? Lungs are clear.? Heart size is normal.? No pleural effusions.? No pneumoperitoneum.? ? Abdomen:? A few foci of nondilated gas-filled small bowel loops are seen in the abdomen.? No suspicious calcifications.? Visualized solid organ contours appear normal.? ? Bones:? No suspicious bony lesions.? Trace levoconvex curvature of the thoracic spine.? There is mild dextroconvex curvature of the lumbar spine.? Multilevel degenerative changes are seen.? In the spine and hips. ? IMPRESSION:? Nonspecific nonobstructive bowel gas pattern.? No pneumoperitoneum. ? ? Dictated by: Jn Meraz M.D. on 06/21/2021 at 16:32 ? ? Approved by: Jn Meraz M.D. on 06/21/2021 at 16:35? CT scan - abdomen/pelvis: Radiologist's Impression: [place] [address] CT Scan Report Addendum Patient: Annie Ryan MR#: [id number] : 1935 Acct:[id number] Age/Sex: 85 / F Date of Service: 06/21/21 Loc: ED Accession Number: [id number] ?? Procedure: CT abdomen pelvis w con Ordering Provider: Justen Young D.O. ADDENDUMThis report includes an Addendum and supersedes previous reports for this exam. ? ? This report includes an Addendum and supersedes previous reports for this exam. ? ? ? PROCEDURE:? CT ABDOMEN PELVIS W CON ? INDICATIONS:? Generalized abdominal pain ? TECHNIQUE:? After the administration of IV contrast, axial sections were acquired from the lung bases to the pubic symphysis.? Coronal and sagittal reformats were performed.? For radiation dose reduction, the following was used:? automated exposure control, adjustment of mA and/or kV according to patient size. ? COMPARISON:? [facility], CT, ABDOMEN/PELVIS WITH CONTRAST, 11/26/2016, 12:04. ? FINDINGS:? Image quality:? Excellent.? ? Lung bases:? Small ground-glass opacity at the right lower lobe is similar to 2017. No pleural effusion.? ? Heart:? No significant findings. Small hiatal hernia. ? ABDOMEN: Liver:? Focal fatty infiltration at the falciform ligament.? Gallbladder:? Absent.? ? Biliary ducts:? Unchanged.? Not significantly dilated.? ? Pancreas:? No peripancreatic fluid collection. Spleen:? No splenomegaly. Adrenal Glands:? No nodule. Kidneys and Ureters:? No hydronephrosis. ? Stomach and Bowel:? Anus appears narrowed.? There is a prominent amount of stool in the rectum.? There is stranding surrounding the rectum.? No diverticulitis.? A few colonic diverticuli.? The appendix is not identified.? No small bowel obstruction.? Suture material within the small bowel in the right lower quadrant. Peritoneum:? There is a thickening and gas at the left lower quadrant, ().? There was a hernia on the CT from 2017 at this site.? There is also all adjacent subcutaneous gas in the left groin.? Trace free fluid in the left groin.? No gross pneumoperit oneum. ? Ventral Wall: ? No hernia.? Abdominal Nodes:? No retroperitoneal or mesenteric adenopathy by size criteria.? Vessels:? Aorta and inferior vena cava are normal in size.? Extensive calcified plaque in the abdominal aorta and iliac arteries.? ? PELVIS: Pelvic Organs:? Uterus is absent.? ? Bladder:? Unremarkable.? ? Pelvic Nodes: No enlarged lymph nodes.? Miscellaneous:? Possible small fat containing right inguinal hernia. ? Bones:? No suspicious lesion.? Right L5 pars defect.? There is 0.3 cm anterolisthesis of L5 on S1.? No compression fracture. ? ? IMPRESSION:? 1. Prominent stool in the colon.? There is surrounding edema.? This could be due to fecal impaction and/or stercoral colitis or other infectious/inflammatory colitis. ? 2. Fluid in gas at the left inguinal hernia and groin.? This is concerning for a tracking abscess.? Origin is uncertain. ? 3. No small bowel obstruction. ? ? Dictated by: Jesús Webb M.D. on 06/21/2021 at 21:28 ? ? Approved by: Jesús Webb M.D. on 06/21/2021 at 21:41 ? ? ? ADDENDUM: ? ? ? Dictated by: Jesús Webb M.D. on 06/21/2021 at 22:16 ? ? Approved by: Jesús Webb M.D. on 06/21/2021 at 22:17 ? ? ? ADDENDUM: Comment: Findings were discussed with Justen Young at the time of dictation.? Reports recent left inguinal hernia repair. ? ? Dictated by: Jesús Webb M.D. on 06/21/2021 at 22:20 ? ? Approved by: Jesús Webb M.D. on 06/21/2021 at 22:22 ? Addendum Dictated By: Jesús Webb MD Addendum Signed By: Addendum Cosigned By: DD/ TD/TT: 06/21/21 This report includes an Addendum and supersedes previous reports for this exam. ? ? ? PROCEDURE:? CT ABDOMEN PELVIS W CON ? INDICATIONS:? Generalized abdominal pain ? TECHNIQUE:? After the administration of IV contrast, axial sections were acquired from the lung bases to the pubic symphysis.? Coronal and sagittal reformats were performed.? For radiation dose reduction, the following was used:? automated exposure control, adjustment of mA and/or kV according to patient size. ? COMPARISON:? [facility], CT, ABDOMEN/PELVIS WITH CONTRAST, 11/26/2016, 12:04. ? FINDINGS:? Image quality:? Excellent.? ? Lung bases:? Small ground-glass opacity at the right lower lobe is similar to 2017. No pleural effusion.? ? Heart:? No significant findings. Small hiatal hernia. ? ABDOMEN: Liver:? Focal fatty infiltration at the falciform ligament.? Gallbladder:? Absent.? ? Biliary ducts:? Unchanged.? Not significantly dilated.? ? Pancreas:? No peripancreatic fluid collection. Spleen:? No splenomegaly. Adrenal Glands:? No nodule. Kidneys and Ureters:? No hydronephrosis. ? Stomach and Bowel:? Anus appears narrowed.? There is a prominent amount of stool in the rectum.? There is stranding surrounding the rectum.? No diverticulitis.? A few colonic diverticuli.? The appendix is not identified.? No small bowel obstruction.? Suture material within the small bowel in the right lower quadrant. Peritoneum:? There is a thickening and gas at the left lower quadrant, ().? There was a hernia on the CT from 2017 at this site.? There is also all adjacent subcutaneous gas in the left groin.? Trace free fluid in the left groin.? No gross pneumoperitoneum. ? Ventral Wall: ? No hernia.? Abdominal Nodes:? No retroperitoneal or mesenteric adenopathy by size criteria.? Vessels:? Aorta and inferior vena cava are normal in size.? Extensive calcified plaque in the abdominal aorta and iliac arteries.? ? PELVIS: Pelvic Organs:? Uterus is absent.? ? Bladder:? Unremarkable.? ? Pelvic Nodes: No enlarged lymph nodes.? Miscellaneous:? Possible small fat containing right inguinal hernia. ? Bones:? No suspicious lesion.? Right L5 pars defect.? There is 0.3 cm anterolisthesis of L5 on S1.? No compression fracture. ? ? IMPRESSION:? 1. Prominent stool in the colon.? There is surrounding edema.? This could be due to fecal impaction and/or stercoral colitis or other infectious/inflammatory colitis. ? 2. Fluid in gas at the left inguinal hernia and groin.? This is concerning for a tracking abscess.? Origin is uncertain. ? 3. No small bowel obstruction. ? ? Dictated by: Jesús Webb M.D. on 06/21/2021 at 21:28 ? ? Approved by: Jesús Webb M.D. on 06/21/2021 at 21:41 ? ? ? ADDENDUM: ? ? ? Dictated by: Jesús Webb M.D. on 06/21/2021 at 22:16 ? ? Approved by: Jesús Webb M.D. on 06/21/2021 at 22:17?? ECG Data Attestation: I personally reviewed and interpreted this ECG as follows: Interpretation: Sinus rhythm Ventricular rate 89 Normal axis Normal QRS Normal QTC No ST T wave changes MDM Narrative Medical decision making narrative: Labs are unremarkable. Her x-ray is unremarkable. CT scan shows no signs of obstruction. She does have stool in her rectum. The surgical incision looks well. Had a discussion with the patient regarding her CT scan. He was given an enema here in the emergency department with only minimal relief of symptoms. We did discuss things she could try at home to help with the constipation. Patient does not require admission to the hospital based on her workup here in the ER. She was given return precautions and follow-up instructions. She expressed understanding and agreement. Discharge Plan Departure Patient Disposition: Home Clinical Impression: Constipation, Abdominal pain Instructions: DI for Abdominal Pain-Adult, DI for Constipation Activity Restrictions/Additional Instructions: I do recommend that you continue with oral laxatives and enemas if you wish. Be sure to increase your fluid intake. Continue all of your medications as directed. Return to the emergency department for any new or worsening symptoms. Some laxatives itchy can try are Magnesium citrate MiraLax Ex-Lax Prescriptions: No Action loratadine [Claritin] 10 MG tablet 10 mg PO PRN Qty: 0 0RF estradiol 1 mg tablet 1 mg PO DAILY Qty: 90 3RF rosuvastatin 10 mg tablet 10 mg PO BEDTIME Qty: 90 3RF acyclovir 800 mg tablet 800 mg PO DAILY Qty: 90 3RF aspirin 325 mg tablet 325 mg PO DAILY 0RF lutein-zeaxanthin 25-5 mg Capsule 1 cap PO DAILY 0RF flaxseed oil Oil MISCELLANEOUS DAILY 0RF cyanocobalamin (vitamin B-12) [Vitamin B-12] 100 mcg Tablet 100 mcg PO DAILY 0RF biotin 10,000 mcg Capsule 10,000 mcg PO DAILY 0RF folic acid 800 mcg Tablet 0.8 mg PO DAILY 0RF coQ10 (ubiquinol) 200 mg Capsule 200 mg PO DAILY 0RF turmeric 400 mg Capsule 1,500 mg PO DAILY 0RF Fish Oil DAILY 0RF acetaminophen [Tylenol] 325 mg capsule 650 mg PO QID PRN (Reason: pain) Qty: 60 0RF lisinopril 20 mg tablet 10 mg PO DAILY 0RF Referrals: Suleiman Torres MD [Primary Care Provider] -
--- NOTE | 2021-06-21 18:37 | DI.CT.S_ITS ---
This report includes an Addendum and supersedes previous reports for this exam. PROCEDURE: CT ABDOMEN PELVIS W CON INDICATIONS: Generalized abdominal pain TECHNIQUE: After the administration of IV contrast, axial sections were acquired from the lung bases to the pubic symphysis. Coronal and sagittal reformats were performed. For radiation dose reduction, the following was used: automated exposure control, adjustment of mA and/or kV according to patient size. COMPARISON: [facility], CT, ABDOMEN/PELVIS WITH CONTRAST, 11/26/2016, 12:04. FINDINGS: Image quality: Excellent. Lung bases: Small ground-glass opacity at the right lower lobe is similar to 2017. No pleural effusion. Heart: No significant findings. Small hiatal hernia. ABDOMEN: Liver: Focal fatty infiltration at the falciform ligament. Gallbladder: Absent. Biliary ducts: Unchanged. Not significantly dilated. Pancreas: No peripancreatic fluid collection. Spleen: No splenomegaly. Adrenal Glands: No nodule. Kidneys and Ureters: No hydronephrosis. Stomach and Bowel: Anus appears narrowed. There is a prominent amount of stool in the rectum. There is stranding surrounding the rectum. No diverticulitis. A few colonic diverticuli. The appendix is not identified. No small bowel obstruction. Suture material within the small bowel in the right lower quadrant. Peritoneum: There is a thickening and gas at the left lower quadrant, (2/59). There was a hernia on the CT from 2017 at this site. There is also all adjacent subcutaneous gas in the left groin. Trace free fluid in the left groin. No gross pneumoperitoneum. Ventral Wall: No hernia. Abdominal Nodes: No retroperitoneal or mesenteric adenopathy by size criteria. Vessels: Aorta and inferior vena cava are normal in size. Extensive calcified plaque in the abdominal aorta and iliac arteries. PELVIS: Pelvic Organs: Uterus is absent. Bladder: Unremarkable. Pelvic Nodes: No enlarged lymph nodes. Miscellaneous: Possible small fat containing right inguinal hernia. Bones: No suspicious lesion. Right L5 pars defect. There is 0.3 cm anterolisthesis of L5 on S1. No compression fracture. IMPRESSION: 1. Prominent stool in the colon. There is surrounding edema. This could be due to fecal impaction and/or stercoral colitis or other infectious/inflammatory colitis. 2. Fluid in gas at the left inguinal hernia and groin. This is concerning for a tracking abscess. Origin is uncertain. 3. No small bowel obstruction. Dictated by: Jesús Webb M.D. on 06/21/2021 at 21:28 Approved by: Jesús Webb M.D. on 06/21/2021 at 21:41 ADDENDUM: Dictated by: Jesús Webb M.D. on 06/21/2021 at 22:16 Approved by: Jesús Webb M.D. on 06/21/2021 at 22:17
[2021-06-21] MEDS: SODIUM CHLORIDE 0.9% 1,000 ML 1000 ML IV (18:45)
[2021-06-21] MEDS: FLEETS ENEMA 1 EACH PR (22:50)
[2021-06-21] MEDS: lisinopriL 10 MG TABLET PO (23:44)
[2021-06-22] VITALS: BP 194/81; PULSE 92; O2SAT 95
[2021-06-22] MEDS: ONDANSETRON 4 MG ODT PREPACK 1 BOTTLE MISC (00:05)
== END 2021-06-22 00:11 | disposition home or self-care (01) ==
PROVIDERS: Emergency Medicine; Emergency Provider Emergency Medicine; PCP Student in an Organized Health Care Education/Training Program
DX: K59.00 Constipation, unspecified (principal); R10.9 Unspecified abdominal pain; Z87.891 Personal history of nicotine dependence
CPT/HCPCS: 36415; 74022; 74177; 80053; 81003; 83690; 85025; 93005; 96360; 96361; 99284; 99285; Q9967

== ENCOUNTER → 2022-06-18 16:29 | Outpatient (CLI) | payer MEDICARE, BC, SELFPAY ==
[2019-07-13 13:40] VITALS: BMI 24.8
[2022-06-18 18:45] LABS: BUN Creatinine Ratio 17.3 (6-22); Blood Urea Nitrogen 19 mg/dL (7-17); Calcium 9.1 mg/dL (8.4-10.2); Carbon Dioxide 29 mmol/L (22-32); Chloride 102 mmol/L (98-107); Estimated Glomerular Filt Rate 50 mL/min (>60); Glucose 90 mg/dL (80-110); HEMOLYSIS < 15 (0-50); Sodium 138 mmol/L (137-145)
[2022-06-19 16:58] LABS: Hep C Virus Ab w/Reflex Quant NEGATIVE s/c (NEGATIVE)
== END ==
PROVIDERS: PCP Student in an Organized Health Care Education/Training Program; Referring Provider Student in an Organized Health Care Education/Training Program; Visit Provider Student in an Organized Health Care Education/Training Program
DX: Z11.59 Encounter for screening for other viral diseases (principal); I10 Essential (primary) hypertension; N18.31 Chronic kidney disease, stage 3a
CPT/HCPCS: 36415; 80048; 86803

== ENCOUNTER → 2022-06-23 12:50 | Outpatient (CLI) | payer MEDICARE, BC, SELFPAY ==
[2019-07-13 13:40] VITALS: BMI 24.8
--- NOTE | 2022-06-23 12:53 | DI.RAD.S_ITS ---
PROCEDURE: XR DEXA AXIAL SKELETON INDICATIONS: ASYMPTOMATIC AGE RELATED POSTMENOPAUSAL STATE COMPARISON: [facility], CR, XR DEXA AXIAL SKELETON, 06/14/2018, 13:03. FINDINGS: This blank DEXA report has been sent in error by the PACS system. The correct and complete report will be forthcoming in 1-2 days. Thank you for your patience and understanding. Dictated by: Aniyah Siddiqui MD, PhD on 06/24/2022 at 13:08 Approved by: Aniyah Siddiqui MD, PhD on 06/24/2022 at 13:08
--- NOTE | 2022-06-23 13:07 | DI.DEXA.S_ITS ---
Bone Density Report Name: DELPHINE MORENO Age: 86 Sex: Female Ethnicity: White Date of : 1935 Indication: postmenopausal; screening for osteoporosis; Referring Provider: LEIGH JONES Study: Bone densitometry was performed. Exam Date: June 23, 2022 Accession number: [id number] Bone Density: Region BMD T-score Z-score Classification AP Spine(L1-L4) 1.357 2.8 5.7 Normal Femoral Neck (Left) 0.971 1.1 3.6 Normal Total Hip (Left) 1.075 1.1 3.4 Normal Femoral Neck (Right) 0.968 1.1 3.6 Normal Total Hip (Right) 1.016 0.6 2.9 Normal Total Hip Mean 1.045 0.9 3.2 Normal World Health Organization criteria for BMD impression classify patients as: Normal (T-score at or above -1.0), Osteopenia (T-score between -1.0 and -2.5), or Osteoporosis (T-score at or below -2.5). 10-year Fracture Risk: FRAX not reported because: All T-scores for Spine Total, Hip Total, Femoral Neck at or above -1.0 Previous Exams: -- Region Exam Age BMD T-score BMD Change BMD Change Date g/cm2 vs Baseline vs Previous -- AP Spine (L1-L4) 06/23/2022 86 1.357 2.8 -0.002 (-0.2%)# -0.002 (-0.2%)# 06/14/2018 82 1.359 2.8 Total Hip(Left) 06/23/2022 86 1.075 1.1 -0.053 (-4.7%)# -0.053 (-4.7%)# 06/14/2018 82 1.128 1.5 Total Hip(Right) 06/23/2022 86 1.016 0.6 -0.055 (-5.1%)# -0.055 (-5.1%)# 06/14/2018 82 1.070 1.1 -- *Denotes significance at 95% confidence level, LSC for AP Spine = 0.022 g/cm2, LSC for Total Hip = 0.027 g/cm2 # Denotes dissimilar scan types or analysis methods Impression: The patient has normal bone mass. No significant bone loss was observed. Discussion: LOW RISK OF FRACTURE; BONE DENSITY IS WELL ABOVE THE MINIMUM DESIRABLE LEVEL AND ABOVE AVERAGE FOR AGE AND SEX AT ALL SKELETAL SITES TESTED. This person's bone density is above expected limits for age and sex. This is rarely clinically significant, but should be pursued if there are significant musculoskeletal complaints. The patient should follow a healthful lifestyle (good nutrition with adequate calcium and vitamin D, and appropriate weight-bearing exercise). Follow-Up: Consider repeating this study in 5 years or sooner if there is some new clinical indication. Reported by: IVORY NICOLE MD on 06/23/2022 1:14:00 PM.
== END ==
PROVIDERS: PCP Student in an Organized Health Care Education/Training Program; Referring Provider Student in an Organized Health Care Education/Training Program; Visit Provider Student in an Organized Health Care Education/Training Program
DX: Z78.0 Asymptomatic menopausal state (principal); Z13.820 Encounter for screening for osteoporosis
CPT/HCPCS: 77080